=== PATIENT | female | born 1975 | race Caucasian/White ===

== ENCOUNTER 2018-02-21 07:22 | Day surgery (SDC) | payer MEDICAID, OTHER ==
[2018-02-21] MEDS ORDERED: Bupivacaine 25%/EPINEPHrine/PF 30 ML ONE (07:23)
[2018-02-21] MEDS ORDERED: fentaNYL 100 MCG/2 ML SDV ONE (07:31)
[2018-02-21] MEDS ORDERED: Propofol 200 MG/20 ML SDV ONE (07:31)
[2018-02-21] MEDS ORDERED: Lidocaine 2% 5 ML SDV ONE (07:31)
[2018-02-21] MEDS ORDERED: Midazolam 1 MG/ML 2 ML SDV ONE (07:32)
[2018-02-21] MEDS ORDERED: ceFAZolin 1 GM Vial ONE (07:41)
[2018-02-21] MEDS ORDERED: Sodium Chloride 0.9% 20 ML ONE (07:41)
--- NOTE | 2018-02-21 07:44 | PCM.PREANE ---
Preanesthetic Assessment - Anesthesia/Transfusion/Family Hx Anesthesia History: Prior Anesthesia Without Reaction Family History of Anesthesia Reaction: No Transfusion History: No Prior Transfusion(s) Intubation History: Unknown - Review of Systems General: No Symptoms Pulmonary: No Symptoms Cardiovascular: No Symptoms Gastrointestinal: No Symptoms Neurological: No Symptoms Other: Reports: None - Physical Assessment Height: 1.7 m Weight: 55.792 kg ASA Class: 2 Mental Status: Alert & Oriented x3 Airway Class: Mallampati = 2 Dentition: Reports: Normal Dentition Thyro-Mental Finger Breadths: 3 Mouth Opening Finger Breadths: 3 ROM/Head Extension: Limited/Partial (wears collar) Lungs: Clear to Auscultation, Normal Respiratory Effort Cardiovascular: Regular Rate, Regular Rhythm - Allergies Allergies/Adverse Reactions: Allergies Allergy/AdvReac Type Severity Reaction Status Date / Time No Known Allergies Allergy Verified 02/18/18 08:50 - Blood Blood Available: No - Anesthesia Plan Pre-Op Medication Ordered: None - Acknowledgements Anesthesia Type Planned: MAC Pt an Appropriate Candidate for the Planned Anesthesia: Yes Alternatives and Risks of Anesthesia Discussed w Pt/Guardian: Yes Pt/Guardian Understands and Agrees with Anesthesia Plan: Yes PreAnesthesia Questionnaire HEENT History: Reports: Other (See Below) Other HEENT History: wears glasses Cardiovascular History: Reports: Blood Clots/VTE/DVT Other Cardiovascular History: blood clots to leg following C/Section 15 yrs ago Gastrointestinal History: Reports: GERD Genitourinary History: Reports: Renal [employer]AD History: Reports: Musculoskeletal History: Reports: Arthritis, Back Pain, Chronic, Fracture, Fibromyalgia, Neck Pain, Chronic Other Musculoskeletal History: hx fx collarbone Psychiatric History: Reports: Anxiety Endocrine/Metabolic History: Reports: None Hematologic History: Reports: None Immunologic History: Reports: None Oncologic (Cancer) History: Reports: None Dermatologic History: Reports: None - Past Surgical History Head Surgeries/Procedures: Reports: None HEENT Surgical History: Reports: Tonsillectomy, Other (See Below) Other HEENT Surgeries/Procedures: throat surgery - removal of vocal cord polyp Female Surgical History: Reports: Section, Hysterectomy Neurological Surgical History: Reports: C-Spine (ACDF), Lumbar Spine Other Neurological Surgeries/Procedures: back and neck surgery Musculoskeletal Surgical History: Reports: Shoulder Surgery, Other (See Below) Other Musculoskeletal Surgeries/Procedures:: shoulder surgery, back surgery and neck surgery - SUBSTANCE USE Smoking Status *Q: Current Every Day Smoker Tobacco Use Within Last Twelve Months: Cigarettes Second Hand Smoke Exposure: Yes Days Per Week of Alcohol Use: 0 Recreational Drug Use History: No - HOME MEDS Home Medications: Home Meds Omeprazole Magnesium [Prilosec Otc] 20 mg PO ASDIRECTED 02/06/16 [History] Cyclobenzaprine HCl 5 - 10 mg PO ASDIRECTED 02/18/18 [History] Diazepam [Valium] 10 mg PO BEDTIME 02/18/18 [History] Diclofenac Sodium [Voltaren] 1 applic TOP ASDIRECTED PRN 02/18/18 [History] Gebauers [place] & Stretch 1 spray TOP ASDIRECTED PRN 02/18/18 [History] Hydrocodone/Acetaminophen [Hydrocodon-Acetaminophen 5-325] 1 tab PO ASDIRECTED PRN 02/18/18 [History] Ketamine Cream 1 applic TOP ASDIRECTED PRN 02/18/18 [History] - CURRENT (IN HOUSE) MEDS Current Meds: Current Medications Hydrocodone Bitart/Acetaminophen ([place] 325-5 Mg) 1 tab PO Q4H PRN PRN Reason: Pain Bupivacaine HCl/Epinephrine Bitart (Marcaine 0.25%/Epinephrine 1:200,000) 10 ml INJECT ONETIME ONE Stop: 02/21/18 08:01 Cefazolin Sodium/Dextrose 2 gm (/ Premix) 50 mls @ 100 mls/hr IV ONETIME ONE Stop: 02/21/18 08:29 Lactated Ringer's (Ringers, Lactated) 1,000 mls @ 125 mls/hr IV ASDIRECTED MARISELA Discontinued Medications Fentanyl (Sublimaze) Confirm Administered Dose 100 mcg .ROUTE .STK-MED ONE Stop: 02/21/18 07:32 Bupivacaine HCl/Epinephrine Bitart (Sensorc Mpf 0.25%-Epi 1:103059) Confirm Administered Dose 30 mls @ as directed .ROUTE .STK-MED ONE Stop: 02/21/18 07:24 Lidocaine (Xylocaine-Mpf 2%) Confirm Administered Dose 5 ml .ROUTE .STK-MED ONE Stop: 02/21/18 07:32 Midazolam HCl (Versed 1 Mg/Ml) Confirm Administered Dose 2 mg .ROUTE .STK-MED ONE Stop: 02/21/18 07:33 Propofol (Diprivan 20 Ml) Confirm Administered Dose 200 mg .ROUTE .[facility] ONE Stop: 02/21/18 07:32
[2018-02-21] MEDS ORDERED: ceFAZolin 2 GM in Premix Bag 1 BAG IV ONE (08:00)
[2018-02-21] MEDS ORDERED: Acetaminophen/HYDROcodone 325-5 MG Tab PO PRN (08:00)
[2018-02-21] MEDS ORDERED: Lactated Ringers 1,000 ML IV SCH (08:00)
[2018-02-21] MEDS ORDERED: Bupivacaine 0.25%/EPINEPHrine 1:200,000 10 ML SDV INJECT ONE (08:00)
--- NOTE | 2018-02-21 09:11 | PCM.OPNOTE ---
- General Post-Op/Procedure Note Date of Surgery/Procedure: 02/21/18 Operative Procedure(s): right carpal tunnel release Pre Op Diagnosis: right carpal tunnel syndrome Post-Op Diagnosis: Same Anesthesia Technique: Local Primary Surgeon: Alta Israel Complications: None Condition: Good Free Text/Narrative:: the patient took her home medications today and is sleepy this am. This is her usual after medications per her family. We discussed using local only to get this accomplished for her without additional compromise or question of medications. We did discuss this with her in clinic and decided today to avoid ANY additional medications aside from the local injection. The family states this is her norm and they will be watching her closely today and helping with any needs. She will not receive any additional medications from us and will use her home medications and OTC antiinflammatories if needed. She will continue her pain regimen per her primary and pain physicians. This care was clearly communicated to her, the family, the nursing staff, anesthesia and the OR care team.
[2018-02-21 11:57] VITALS: BP 110/65
--- NOTE | 2018-02-25 18:21 | OR ---
SURGEON: ROYA LUCAS MD DATE OF PROCEDURE: 02/21/2018 PREOPERATIVE DIAGNOSIS: Right carpal tunnel syndrome. POSTOPERATIVE DIAGNOSIS: Right carpal tunnel syndrome. PROCEDURE: Right carpal tunnel release. ANESTHESIA: Local only. INDICATIONS: Ms. Mills is a 42-year-old female seen today in evaluation for carpal tunnel release. Significant discussion was had with her and about her other pain complaints in the office. Risks and benefits were discussed with her thoroughly at the time and informed consent was obtained at that time. The patient does present today after taking some home medications and is somewhat sleepy. This is usual per her family after she takes these medications. We discussed with the family and with the patient that we will use local only today to accomplish the release without additional compromise or question of medication interactions. We did discuss this possibility with her in clinic and again today made a decision to avoid any additional IV or p.o. medications aside from the local injection. All questions answered at the preoperative visit. Informed consent was obtained at that time. We will proceed under local only today. This care was clearly communicated to her family, nursing staff, Anesthesia and OR care team. PROCEDURE IN DETAIL: After informed consent was confirmed and placed on the chart, the patient was brought to the operating theater in the supine position. After adequate local anesthesia was obtained, the area was prepped and draped and a time-out was completed to confirm side and site. Tourniquet was not used in this case given the local anesthesia. Once adequately prepped and draped and blocked appropriately, the area was incised using a 15 blade through the skin and subcutaneous tissues directly over the transverse carpal ligament. The patient was quite comfortable. Dissection was carried until breach of the ligament and then direct visualization distally and proximally allowed complete release of the ligament using a Littler scissor. Once adequately released, the area was copiously irrigated and closed using a 5-0 nylon stitch in a horizontal mattress fashion. The patient tolerated this well. The wound was dressed with Xeroform fluffs and a Kerlix gauze dressing. All counts and needles were correct at the end of the case. FOLLOWUP INSTRUCTIONS: The patient will be discharged home on her home medications only. No additional medication given and she will follow up with us in 2 weeks sooner if any problems, questions, or concerns. The family was given strict instructions on close observation of the patient today and helping with any additional needs. We recommend no additional medications from us and using [id number] anti- inflammatories as needed for pain. She will continue her pain regimen for her primary and pain position, however, recommend close observation today given her sleepy status this morning. All questions answered and verbal consent and acknowledgement of this obtained from her family and the patient herself. She was able to walk out of her own accord. HEGGTHE / MODL /[id number] MTDJanine
== END 2018-02-21 09:45 | disposition home or self-care (01) ==
LOC: MW.SDS 07:22
PROVIDERS: ATTEND Plastic Surgery
DX: G56.03 Carpal tunnel syndrome, bilateral upper limbs (principal); F17.200 Nicotine dependence, unspecified, uncomplicated; Z79.899 Other long term (current) drug therapy
CPT/HCPCS: 64721; J0690; J7120; J2250; J2704; J3010

== ENCOUNTER 2018-03-07 07:54 | Day surgery (SDC) | payer MEDICAID, OTHER ==
[~2018-03-07 07:54] MED LIST: Bupivacaine 25%/EPINEPHrine/PF 30 ML ONE
[2018-03-07] MEDS ORDERED: Lactated Ringers 1,000 ML IV SCH (08:00)
[2018-03-07] MEDS ORDERED: Bupivacaine 0.25%/EPINEPHrine 1:200,000 10 ML SDV INJECT ONE (08:00)
[2018-03-07] MEDS ORDERED: ceFAZolin 2 GM in Premix Bag 1 BAG IV ONE (08:00)
--- NOTE | 2018-03-07 08:12 | PCM.PREANE ---
Preanesthetic Assessment - Anesthesia/Transfusion/Family Hx Anesthesia History: Prior Anesthesia Without Reaction Family History of Anesthesia Reaction: No Transfusion History: No Prior Transfusion(s) Intubation History: Unknown - Review of Systems General: No Symptoms Pulmonary: No Symptoms Cardiovascular: No Symptoms Gastrointestinal: No Symptoms Other: Reports: Depression, Anxiety - Physical Assessment NPO Status Date: 03/06/18 Height: 1.7 m Weight: 55.792 kg ASA Class: 3 Mental Status: Alert & Oriented x3 Airway Class: Mallampati = 1 Dentition: Reports: Normal Dentition ROM/Head Extension: Full Lungs: Clear to Auscultation, Normal Respiratory Effort Cardiovascular: Regular Rate, Regular Rhythm - Allergies Allergies/Adverse Reactions: Allergies Allergy/AdvReac Type Severity Reaction Status Date / Time No Known Allergies Allergy Verified 02/18/18 08:50 - Anesthesia Plan Pre-Op Medication Ordered: Anxiolytic - Acknowledgements Anesthesia Type Planned: MAC Pt an Appropriate Candidate for the Planned Anesthesia: Yes Alternatives and Risks of Anesthesia Discussed w Pt/Guardian: Yes Pt/Guardian Understands and Agrees with Anesthesia Plan: Yes Additional Comments: Here for second side CTR, anesthesia/analgesia plan agreed to by surgeon and patient is to involve a small dose of anxiolysis pre-operatively, No sedation ( no diprivan, no narcotic, and no additional benzodiazepine) during of after the case. Arrived highly self-medicated prior to last CTR surgery. PMH: chronic pain PreAnesthesia Questionnaire HEENT History: Reports: Other (See Below) Other HEENT History: wears glasses Cardiovascular History: Reports: Blood Clots/VTE/DVT Other Cardiovascular History: hx DVT ro leg after c/section 15 yrs ago Gastrointestinal History: Reports: GERD Genitourinary History: Reports: None [employer] SERV[employer] INST[employer]ER History: Reports: Musculoskeletal History: Reports: Back Pain, Chronic Other Musculoskeletal History: hx fx collarbone Neurological History: Reports: None Psychiatric History: Reports: Anxiety Endocrine/Metabolic History: Reports: None Hematologic History: Reports: None Immunologic History: Reports: None Oncologic (Cancer) History: Reports: None Dermatologic History: Reports: None - Past Surgical History Musculoskeletal Surgical History: Reports: Other (See Below) - SUBSTANCE USE Smoking Status *Q: Current Every Day Smoker Tobacco Use Within Last Twelve Months: Cigarettes Second Hand Smoke Exposure: Yes Days Per Week of Alcohol Use: 0 Recreational Drug Use History: No - HOME MEDS Home Medications: Home Meds Omeprazole Magnesium [Prilosec Otc] 20 mg PO ASDIRECTED 02/06/16 [History] Cyclobenzaprine HCl 5 - 10 mg PO ASDIRECTED 02/18/18 [History] Diazepam [Valium] 10 mg PO BEDTIME 02/18/18 [History] Diclofenac Sodium [Voltaren] 1 applic TOP ASDIRECTED PRN 02/18/18 [History] Gebauers [place] & Stretch 1 spray TOP ASDIRECTED PRN 02/18/18 [History] Hydrocodone/Acetaminophen [Hydrocodon-Acetaminophen 5-325] 1 tab PO ASDIRECTED PRN 02/18/18 [History] Ketamine Cream 1 applic TOP ASDIRECTED PRN 02/18/18 [History] - CURRENT (IN HOUSE) MEDS Current Meds: Current Medications Cefazolin Sodium/Dextrose 2 gm (/ Premix) 50 mls @ 100 mls/hr IV ONETIME ONE Stop: 03/07/18 08:29 Lactated Ringer's (Ringers, Lactated) 1,000 mls @ 125 mls/hr IV ASDIRECTED MARISELA Discontinued Medications Bupivacaine HCl/Epinephrine Bitart ([place] 0.25%/Epinephrine 1:200,000) 10 ml INJECT ONETIME ONE Stop: 03/07/18 08:01 Bupivacaine HCl/Epinephrine Bitart (Sensorc Mpf 0.25%-Epi 1:192634) Confirm Administered Dose 30 mls @ as directed .ROUTE .STK-MED ONE Stop: 03/07/18 07:31
[2018-03-07] MEDS ORDERED: Midazolam 1 MG/ML 2 ML SDV ONE (08:18)
[2018-03-07] MEDS ORDERED: fentaNYL 100 MCG/2 ML SDV ONE (08:18)
[2018-03-07] MEDS ORDERED: Propofol 200 MG/20 ML SDV ONE (08:18)
[2018-03-07] MEDS ORDERED: ceFAZolin/Dextrose,Iso-Osmotic 2 GM/50 ML Duplex Bag IV ONE (08:25)
--- NOTE | 2018-03-07 09:09 | PCM.OPNOTE ---
- General Post-Op/Procedure Note Date of Surgery/Procedure: 03/07/18 Operative Procedure(s): left carpal tunnel release Pre Op Diagnosis: let carpal tunnel Post-Op Diagnosis: Same Anesthesia Technique: Local, Regional Block Primary Surgeon: Alta Israel Complications: None Condition: Good
--- NOTE | 2018-03-07 09:21 | PCM48HPAN ---
Post Anesthesia Note - EVALUATION WITHIN 48HRS OF ANESTHETIC Vital Signs in Normal Range: Yes Patient Participated in Evaluation: Yes Respiratory Function Stable: Yes Airway Patent: Yes Cardiovascular Function Stable: Yes Hydration Status Stable: Yes Pain Control Satisfactory: Yes Nausea and Vomiting Control Satisfactory: Yes Mental Status Recovered: Yes Resp Rate: 16 - COMMENTS/OBSERVATIONS Free Text/Narrative:: no anesthesia problems, patient skipped recovery room phase of postoperative care
--- NOTE | 2018-03-07 10:51 | OR ---
SURGEON: ROYA LUCAS MD DATE OF PROCEDURE: 03/07/2018 PREOPERATIVE DIAGNOSIS: Left carpal tunnel syndrome. POSTOPERATIVE DIAGNOSIS: Left carpal tunnel syndrome. PROCEDURE PERFORMED: Left carpal tunnel release. ANESTHESIA: Local. INDICATIONS: Ms. Mills is a 42-year-old female, who has previously had a right carpal tunnel release several weeks ago. She has done very well with this and had just left. Given pain contract and numerous other medications, we discussed doing this under straight local anesthesia. She would like to do this and is in agreement to proceed. Risks were including, but not limited to, bleeding, infection, damage to underlying or overlying structures, possible need for future interventions, possible scarring. PROCEDURE IN DETAIL: After informed consent was obtained and placed on the chart, the patient was brought to the operating theater and laid in the supine position. After adequate prepping and draping, local anesthesia was infiltrated into the area and allowed to sit for 4 minutes. Once adequately set, attention was then paid to dissection of the transverse carpal ligament. A #15 blade was used to dissect through the skin and subcutaneous tissues after prepping and draping in a normal fashion and a time-out had been completed to confirm side and site. Under direct visualization, the ligament was breached and dissection was carried distally and proximally using a Littler scissor. Once adequately released, the area was copiously irrigated. A 5-0 nylon stitch was used to close the wound in a horizontal mattress fashion. The patient tolerated this well. The wound was dressed with Xeroform, fluffs, and Kerlix gauze dressing and a 2-inch Juan Alberto wrap. FOLLOWUP INSTRUCTIONS: The patient will see us in 10 to 14 days, sooner if she has any problems, questions, or concerns. She will use her home medications for pain control. No additional medications given from us today. HEGGTHE / ZAKL /[id number]
[2018-03-07 15:18] VITALS: BP 140/60
== END 2018-03-07 09:40 | disposition home or self-care (01) ==
LOC: MW.SDS 07:54
PROVIDERS: ATTEND Plastic Surgery
DX: G56.02 Carpal tunnel syndrome, left upper limb (principal); F17.210 Nicotine dependence, cigarettes, uncomplicated; K21.9 Gastro-esophageal reflux disease without esophagitis; F41.9 Anxiety disorder, unspecified; F32.9 Major depressive disorder, single episode, unspecified; Z79.899 Other long term (current) drug therapy
CPT/HCPCS: 64721; J0690; J7120; J2250; J2704; J3010

== ENCOUNTER 2019-10-06 07:27 | Observation (INO) | payer MEDICAID ==
[2019-10-06] MEDS ORDERED: Sodium Chloride 0.9% 10 ML Syringe FLUSH PRN (07:58)
[2019-10-06] MEDS ORDERED: Sodium Chloride 0.9% 2.5 ML Syringe FLUSH PRN (07:58)
[2019-10-06] MEDS ORDERED: LORazepam 2 MG/ML SDV IVPUSH ONE (08:00)
--- NOTE | 2019-10-06 08:06 | EDM.PDOC ---
ED HPI GENERAL MEDICAL PROBLEM - General Chief Complaint: Respiratory Problem Stated Complaint: SOB Time Seen by Provider: 10/06/19 08:01 Source of Information: Reports: Patient, Family History Limitations: Reports: No Limitations - History of Present Illness INITIAL COMMENTS - FREE TEXT/NARRATIVE: Patient is a 43-year-old female is complaining having worsening shortness of breath with dyspnea on exertion that started 4 days ago and got worse this morning. Patient denies having any cough or any fever or chills. She has not been nauseous or vomiting. Since this morning tearful and is very anxious over her current symptoms. She has not had these symptoms before. Patient is a cigarette smoker. Patient has not had any recent travel not had any recent surgery or been injured where she has been bedridden. Patient does have history of antiphospholipid disease and has been told that she is at risk due to this or having blood clots. Patient has been on Coumadin prophylactically for blood clots in the past but is not currently taking any Coumadin. Patient also has a history of lupus. Scribes her chest pain is sharp and is more right- sided and goes to her back. She states this is 10 out of 10 in intensity. She denies any swelling to her ankles or any bloody or tarry stools. Onset Date: 10/03/19 Duration: Constant Location: Reports: Chest Quality: Reports: Sharp, Stabbing Severity: Severe Improves with: Reports: None Worsens with: Reports: Breathing, Movement Associated Symptoms: Reports: Chest Pain, Diaphoresis, Shortness of Breath. Denies: cough w sputum, Fever/Chills, Nausea/Vomiting right chest Pain Score (Numeric/FACES): 10 - Related Data Allergies Allergy/AdvReac Type Severity Reaction Status Date / Time metoclopramide [From Reglan] Allergy Rash Verified 10/06/19 07:51 Home Meds: Home Meds Acetaminophen/HYDROcodone [[place] 325-5 MG] 1 tab PO Q6H PRN 10/06/19 [History] Bumetanide [Bumex] 10/06/19 [History] Estrogens, Conjugated [Premarin] 10/06/19 [History] Furosemide [Lasix] 40 mg PO BID 10/06/19 [History] Ketamine [Ketalar] 10/06/19 [History] Sertraline [Zoloft] 50 mg PO BID 10/06/19 [History] cloNIDine [Catapres-TTS 1] 0.1 mg PO BID 10/06/19 [History] Past Medical History HEENT History: Reports: Other (See Below) Other HEENT History: wears glasses Cardiovascular History: Reports: Blood Clots/VTE/DVT, Hypertension Other Cardiovascular History: hx DVT ro leg after c/section 15 yrs ago Gastrointestinal History: Reports: GERD Genitourinary History: Reports: None 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: Musculoskeletal History: Reports: Arthritis, Back Pain, Chronic, Fracture, Fibromyalgia, Neck Pain, Chronic Other Musculoskeletal History: hx fx collarbone Neurological History: Reports: None Psychiatric History: Reports: Anxiety Endocrine/Metabolic History: Reports: None Hematologic History: Reports: None Immunologic History: Reports: SLE Oncologic (Cancer) History: Reports: None Dermatologic History: Reports: None - Past Surgical History HEENT Surgical History: Reports: Tonsillectomy, Other (See Below) Musculoskeletal Surgical History: Reports: Carpal Tunnel, Shoulder Surgery, Other (See Below) Other Musculoskeletal Surgeries/Procedures:: shoulder surgery, back surgery and neck surgery Social & Family History - Family History Family Medical History: Noncontributory ED ROS GENERAL - Review of Systems Review Of Systems: See Below Constitutional: Reports: Diaphoresis HEENT: Reports: No Symptoms Respiratory: Reports: Shortness of Breath, Pleuritic Chest Pain. Denies: Cough , Sputum, Hemoptysis Cardiovascular: Reports: Chest Pain, Dyspnea on Exertion GI/Abdominal: Reports: No Symptoms : Reports: No Symptoms Musculoskeletal: Reports: No Symptoms Skin: Reports: Diaphoresis Neurological: Reports: No Symptoms Psychiatric: Reports: Anxiety Hematologic/Lymphatic: Reports: No Symptoms ED EXAM, GENERAL - Physical Exam Exam: See Below Exam Limited By: No Limitations General Appearance: Anxious, Mild Distress Head: Atraumatic Neck: Normal Inspection Respiratory/Chest: Normal Breath Sounds, No Accessory Muscle Use. No: Crackles , Rales, Rhonchi, Wheezing, Retractions Cardiovascular: Normal Peripheral Pulses, Regular Rate, Rhythm, No Edema, No JVD , No Murmur GI/Abdominal: Normal Bowel Sounds Back Exam: Normal Inspection Extremities: No Pedal Edema Psychiatric: Anxious, Tearful Skin Exam: Diaphoretic Lymphatic: No Adenopathy EKG INTERPRETATION EKG Date: 10/06/19 Rhythm: NSR P-Wave: Present (Patient is in sinus tachycardia without any ST or T wave changes. Her heart rate is 112.) QRS: Normal ST-T: Normal QT: Normal Course - Vital Signs Text/Narrative:: CTA scan shows no pulmonary embolus. Patient does have diffuse interlobar septal thickening. She has small patchy infiltrates bilaterally with moderate to large bilateral pleural effusions. Patient's exertional pulse ox went down to 89% and she is very dyspneic with slightly walking around the department. I am starting her on Levaquin and I have discussed the patient with hospitalist who will come admit her. BNP is pending. He is aware she will be admitted to the hospital at this time. Last Recorded V/S: Last Vital Signs Temp 36.4 C 10/06/19 07:30 Pulse 127 H 10/06/19 09:31 Resp 22 H 10/06/19 09:31 BP 192/88 H 10/06/19 07:30 Pulse Ox 89 L 10/06/19 09:31 - Orders/Labs/Meds Orders: Active Orders 24 hr Category Date Time Status Cardiac Monitoring [RC] . DIRECTED Care 10/06/19 07:58 Active EKG 12 Lead [EKG Documentation Completion] [RC] STAT Care 10/06/19 07:42 Active Pulse Oximetry [RC] ASDIRECTED Care 10/06/19 07:58 Active B-TYPE NATRIURETIC PEPTIDE,BNP [CHEM] Stat Lab 10/06/19 08:01 Received Sodium Chloride 0.9% [Saline Flush] Med 10/06/19 07:58 Active 10 ml FLUSH ASDIRECTED PRN Sodium Chloride 0.9% [Saline Flush] Med 10/06/19 07:58 Active 2.5 ml FLUSH ASDIRECTED PRN DME for Inpatients [OM.PC] Stat Oth 10/06/19 09:21 Ordered Saline Lock Insert [OM.PC] Stat Oth 10/06/19 07:58 Ordered Medication Orders Sodium Chloride (Saline Flush) 10 ml FLUSH ASDIRECTED PRN PRN Reason: Keep Vein Open Sodium Chloride (Saline Flush) 2.5 ml FLUSH ASDIRECTED PRN PRN Reason: Keep Vein Open Labs: Laboratory Tests 10/06/19 10/06/19 10/06/19 Range/Units 07:40 07:40 07:40 WBC 8.16 (4.0-11.0) K/uL RBC 4.51 (4.30-5.90) M/uL Hgb 12.1 (12.0-16.0) g/dL Hct 37.0 (36.0-46.0) % MCV 82.0 (80.0-98.0) fL MCH 26.8 L (27.0-32.0) pg MCHC 32.7 (31.0-37.0) g/dL RDW Std Deviation 44.1 (28.0-62.0) fl RDW Coeff of Dayanna 15 (11.0-15.0) % Plt Count 285 (150-400) K/uL MPV 10.60 (7.40-12.00) fL Neut % (Auto) 49.9 (48.0-80.0) % Lymph % (Auto) 35.3 (16.0-40.0) % [place] % (Auto) 10.3 (0.0-15.0) % Eos % (Auto) 4.4 (0.0-7.0) % Baso % (Auto) 0.1 (0.0-1.5) % Neut # (Auto) 4.1 (1.4-5.7) K/uL Lymph # (Auto) 2.9 H (0.6-2.4) K/uL [place] # (Auto) 0.8 (0.0-0.8) K/uL Eos # (Auto) 0.4 (0.0-0.7) K/uL Baso # (Auto) 0.0 (0.0-0.1) K/uL Nucleated RBC % 0.0 /100WBC Nucleated RBCs # 0 K/uL INR 1.01 Sodium 144 (136-145) mmol/L Potassium 3.4 L (3.5-5.1) mmol/L Chloride 108 H (98-107) mmol/L Carbon Dioxide 25.5 (21.0-32.0) mmol/L BUN 16 (7.0-18.0) mg/dL Creatinine 0.7 (0.6-1.0) mg/dL Est Cr Clr Drug Dosing 95.47 mL/min Estimated GFR (MDRD) > 60.0 ml/min Glucose 94 (74-106) mg/dL Calcium 8.8 (8.5-10.1) mg/dL Total Bilirubin 0.5 (0.2-1.0) mg/dL AST 62 H (15-37) IU/L ALT 70 H (14-63) IU/L Alkaline Phosphatase 150 H (46-116) U/L Troponin I < 0.050 (0.000-0.056) ng/mL Total Protein 6.5 (6.4-8.2) g/dL Albumin 3.5 (3.4-5.0) g/dL Globulin 3.0 (2.6-4.0) g/dL Albumin/Globulin Ratio 1.2 (0.9-1.6) Lipase 104 (73-393) U/L Meds: Medications Generic Name Dose Route Start Last Admin Trade Name Freq PRN Reason Stop Dose Admin Sodium Chloride 10 ml 10/06/19 07:58 Saline Flush FLUSH ASDIRECTED PRN Keep Vein Open Sodium Chloride 2.5 ml 10/06/19 07:58 Saline Flush FLUSH ASDIRECTED PRN Keep Vein Open Discontinued Medications Generic Name Dose Route Start Last Admin Trade Name Freq PRN Reason Stop Dose Admin Iopamidol 50 ml 10/06/19 08:47 Isovue Multipack-370 (76%) IVPUSH 10/06/19 08:48 ONETIME ONE Lorazepam 1 mg 10/06/19 08:00 10/06/19 08:22 Ativan IVPUSH 10/06/19 08:01 1 mg ONETIME ONE Administration Departure - Departure Time of Disposition: 09:50 Disposition: Admitted As Inpatient 65 Clinical Impression: Dyspnea on exertion, Hypoxia, Bilateral pleural effusion, Pneumonia - Discharge Information Referrals: PCP,None [Primary Care Provider] - Forms: ED Department Discharge Sepsis Event Note - Evaluation Sepsis Screening Result: No Definite Risk - Focused Exam Vital Signs: Vital Signs Temp Pulse Resp BP Pulse Ox Pulse Ox 10/06/19 09:31 127 H 22 H 89 L 10/06/19 08:30 92 L 10/06/19 07:30 36.4 C 116 H 20 192/88 H 94 L Date Exam was Performed: 10/06/19 Time Exam was Performed: 09:50 - My Orders Last 24 Hours: My Active Orders 10/06/19 07:42 EKG 12 Lead [EKG Documentation Completion] [RC] STAT 10/06/19 07:58 Cardiac Monitoring [RC] . DIRECTED Pulse Oximetry [RC] ASDIRECTED Sodium Chloride 0.9% [Saline Flush] 10 ml FLUSH ASDIRECTED PRN Sodium Chloride 0.9% [Saline Flush] 2.5 ml FLUSH ASDIRECTED PRN Saline Lock Insert [OM.PC] Stat 10/06/19 08:01 B-TYPE NATRIURETIC PEPTIDE,BNP [CHEM] Stat 10/06/19 09:21 DME for Inpatients [OM.PC] Stat - Assessment/Plan Last 24 Hours: My Active Orders 10/06/19 07:42 EKG 12 Lead [EKG Documentation Completion] [RC] STAT 10/06/19 07:58 Cardiac Monitoring [RC] . DIRECTED Pulse Oximetry [RC] ASDIRECTED Sodium Chloride 0.9% [Saline Flush] 10 ml FLUSH ASDIRECTED PRN Sodium Chloride 0.9% [Saline Flush] 2.5 ml FLUSH ASDIRECTED PRN Saline Lock Insert [OM.PC] Stat 10/06/19 08:01 B-TYPE NATRIURETIC PEPTIDE,BNP [CHEM] Stat 10/06/19 09:21 DME for Inpatients [OM.PC] Stat
[2019-10-06 08:19] LABS: BLOOD UREA NITROGEN,BUN 16 mg/dL (7.0-18.0); CARBON DIOXIDE,CO2 25.5 mmol/L (21.0-32.0); CHLORIDE,CL 108 mmol/L (98-107); GLUCOSE RANDOM 94 mg/dL (74-106); LIPASE 104 U/L (73-393); POTASSIUM,K 3.4 mmol/L (3.5-5.1); SODIUM,NA 144 mmol/L (136-145)
[2019-10-06] MEDS ORDERED: Iopamidol 755 MG/ML 200 ML Multipack Bottle IVPUSH ONE (08:47)
--- NOTE | 2019-10-06 09:10 | CT ---
INDICATION: Shortness of breath. TECHNIQUE: CT chest PE was acquired with 50 cc Isovue 370 IV contrast. COMPARISON: None. FINDINGS: Heart and vasculature: Contrast opacification of the pulmonary arterial tree is adequate. No sign of pulmonary embolism. Heart size is normal. Thoracic aorta and pulmonary artery are normal in caliber. Lungs and pleural: There is diffuse interlobular septal thickening. Small patchy infiltrates are in both upper lobes . There are moderate to large bilateral pleural effusions with adjacent passive atelectasis in the lower lobes. Lymph nodes/mediastinum: No mediastinal, hilar, or axillary adenopathy. Thyroid gland is normal. Chest wall: No masses. Upper abdomen: Normal. Bones: Unremarkable for age. IMPRESSION: 1. No pulmonary embolism. 2. Although the heart size is normal. There is evidence of CHF or fluid overload with diffuse interlobular septal thickening, small patchy infiltrates in the upper lobes which could represent pulmonary edema, and moderate to large bilateral pleural effusions. Alternatively, the upper lobe infiltrates could represent pneumonia. Please note that all CT scans at this facility use dose modulation, iterative reconstruction, and/or weight-based dosing when appropriate to reduce radiation dose to as low as reasonably achievable. Dictated by Dylan Gale MD @ Oct 06 2019 9:03AM Signed by Dr. Dylan Gale @ Oct 06 2019 9:08AM
[2019-10-06] MEDS ORDERED: Albuterol/Ipratropium 3.0-0.5 MG/3 ML Neb Soln NEB ONE (11:05)
[2019-10-06] MEDS ORDERED: methylPREDNISolone Sodium Succinate 125 MG/2 ML SDV IVPUSH ONE (11:08)
[2019-10-06] MEDS ORDERED: Furosemide 40 MG/4 ML VIAL IVPUSH ONE (11:10)
[2019-10-06] MEDS ORDERED: Levofloxacin/Dextrose 5%-Water 500 MG in Premix Bag 1 BAG IV SCH (11:15)
[2019-10-06] MEDS ORDERED: Nicotine 21 MG/24 Hr Patch TRDERM SCH (11:15)
--- NOTE | 2019-10-06 11:15 | PCM.HP.2 ---
H&P History of Present Illness - General Date of Service: 10/06/19 Admit Problem/Dx: Admission Diagnosis/Problem Admission Diagnosis/Problem Pneumonia Source of Information: Patient History Limitations: Reports: No Limitations - History of Present Illness Initial Comments - Free Text/Narative: Patient is a 43-year-old female with a significant past medical history of tobacco abuse x16 years, antiphospholipid syndrome; no longer taking her Coumadin, and failed back surgery with chronic pain; presenting today after 4 days of worsening exertional dyspnea and worsening of her nonproductive cough. Patient throughout this time denies any fevers, chills, body aches, diarrhea, constipation. States she has been taking her usual dose of Lasix 40 mg twice daily or Bumex on alternating days. When asked about her history of Coumadin states she sees a provider in [facility] and cannot recall why Coumadin was never restarted however was never told to stop it also. ER Course: With history of antiphospholipid syndrome /previous DVTs; CT Hedy of chest performed showing no PE however moderate to large pleural effusions bilaterally appreciated with upper lobe opacities concerning for pneumonia. Patient also was having dyspnea on exertion with superimposed anxiety; 1 dose of Ativan given and patient was started on supplemental oxygen. Initial troponin negative; EKG unremarkable. right chest Pain Score (Numeric/FACES): 10 - Related Data Allergies/Adverse Reactions: Allergies Allergy/AdvReac Type Severity Reaction Status Date / Time metoclopramide [From Reglan] Allergy Rash Verified 10/06/19 11:52 Home Medications: Home Meds Acetaminophen/HYDROcodone [[place] 325-5 MG] 1 tab PO Q6H PRN 10/06/19 [History] Bumetanide [Bumex] 10/06/19 [History] Estrogens, Conjugated [Premarin] 10/06/19 [History] Furosemide [Lasix] 40 mg PO BID 10/06/19 [History] Ketamine [Ketalar] 10/06/19 [History] Sertraline [Zoloft] 50 mg PO DAILY 10/06/19 [History] cloNIDine [Catapres-TTS 1] 0.1 mg PO BID 10/06/19 [History] Past Medical History HEENT History: Reports: Other (See Below) Other HEENT History: wears glasses Cardiovascular History: Reports: Blood Clots/VTE/DVT, Hypertension Other Cardiovascular History: hx DVT ro leg after c/section 15 yrs ago Gastrointestinal History: Reports: GERD Genitourinary History: Reports: None 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: Musculoskeletal History: Reports: Arthritis, Back Pain, Chronic, Fracture, Fibromyalgia, Neck Pain, Chronic Other Musculoskeletal History: hx fx collarbone Neurological History: Reports: None Psychiatric History: Reports: Anxiety Endocrine/Metabolic History: Reports: None Hematologic History: Reports: None Immunologic History: Reports: SLE Oncologic (Cancer) History: Reports: None Dermatologic History: Reports: None - Past Surgical History HEENT Surgical History: Reports: Tonsillectomy, Other (See Below) Musculoskeletal Surgical History: Reports: Carpal Tunnel, Shoulder Surgery, Other (See Below) Other Musculoskeletal Surgeries/Procedures:: shoulder surgery, back surgery and neck surgery Social & Family History - Family History Family Medical History: Noncontributory - Tobacco Use Smoking Status *Q: Current Every Day Smoker Years of Tobacco use: 15 Packs/Tins Daily: 1 - Recreational Drug Use Recreational Drug Use: No H&P Review of Systems - Review of Systems: Review Of Systems: See Below General: Reports: Fatigue. Denies: Fever, Chills HEENT: Reports: No Symptoms Pulmonary: Reports: Shortness of Breath, Pleuritic Chest Pain, Cough. Denies: Sputum Cardiovascular: Reports: Dyspnea on Exertion, Orthopnea, Edema. Denies: Chest Pain, Palpitations Gastrointestinal: Denies: Abdominal Pain, Constipation, Diarrhea, Decreased Appetite, Nausea Genitourinary: Reports: No Symptoms Musculoskeletal: Reports: Back Pain (chronic) Skin: Reports: No Symptoms Psychiatric: Reports: Anxiety. Denies: Depression Neurological: Denies: Confusion, Dizziness, Headache Exam - Exam Exam: See Below - Vital Signs Vital Signs: Last Vital Signs Temp 97.6 F 10/06/19 07:30 Pulse 127 H 10/06/19 09:31 Resp 22 H 10/06/19 09:31 BP 192/88 H 10/06/19 07:30 Pulse Ox 89 L 10/06/19 09:31 Weight: 130 lb - Exam Quality Assessment: Supplemental Oxygen General: Alert, Oriented, Mild Distress HEENT: EOMI, Mucosa Moist & [place] Neck: Supple, Trachea Midline Lungs: Other (incrased respiratory effort w/ rhonchi and crackles apprecaited in supine and upright position/) Cardiovascular: Regular Rate, Regular Rhythm GI/Abdominal Exam: Soft, Non-Tender, No Distention Extremities: Normal Inspection, Normal Range of Motion, No Pedal Edema Skin: Warm, Dry Neuro Extensive - Mental Status: Alert, Oriented x3 Psychiatric: Alert - Patient Data Lab Results Last 24 hrs: Laboratory Results - last 24 hr 10/06/19 10/06/19 10/06/19 Range/Units 07:40 07:40 07:40 WBC 8.16 (4.0-11.0) K/uL RBC 4.51 (4.30-5.90) M/uL Hgb 12.1 (12.0-16.0) g/dL Hct 37.0 (36.0-46.0) % MCV 82.0 (80.0-98.0) fL MCH 26.8 L (27.0-32.0) pg MCHC 32.7 (31.0-37.0) g/dL RDW Std Deviation 44.1 (28.0-62.0) fl RDW Coeff of Dayanna 15 (11.0-15.0) % Plt Count 285 (150-400) K/uL MPV 10.60 (7.40-12.00) fL Neut % (Auto) 49.9 (48.0-80.0) % Lymph % (Auto) 35.3 (16.0-40.0) % [place] % (Auto) 10.3 (0.0-15.0) % Eos % (Auto) 4.4 (0.0-7.0) % Baso % (Auto) 0.1 (0.0-1.5) % Neut # (Auto) 4.1 (1.4-5.7) K/uL Lymph # (Auto) 2.9 H (0.6-2.4) K/uL [place] # (Auto) 0.8 (0.0-0.8) K/uL Eos # (Auto) 0.4 (0.0-0.7) K/uL Baso # (Auto) 0.0 (0.0-0.1) K/uL Nucleated RBC % 0.0 /100WBC Nucleated RBCs # 0 K/uL INR 1.01 Sodium 144 (136-145) mmol/L Potassium 3.4 L (3.5-5.1) mmol/L Chloride 108 H (98-107) mmol/L Carbon Dioxide 25.5 (21.0-32.0) mmol/L BUN 16 (7.0-18.0) mg/dL Creatinine 0.7 (0.6-1.0) mg/dL Est Cr Clr Drug Dosing 95.47 mL/min Estimated GFR (MDRD) > 60.0 ml/min Glucose 94 (74-106) mg/dL Calcium 8.8 (8.5-10.1) mg/dL Total Bilirubin 0.5 (0.2-1.0) mg/dL AST 62 H (15-37) IU/L ALT 70 H (14-63) IU/L Alkaline Phosphatase 150 H (46-116) U/L Troponin I < 0.050 (0.000-0.056) ng/mL B-Natriuretic Peptide (<100) PG/ML Total Protein 6.5 (6.4-8.2) g/dL Albumin 3.5 (3.4-5.0) g/dL Globulin 3.0 (2.6-4.0) g/dL Albumin/Globulin Ratio 1.2 (0.9-1.6) Lipase 104 (73-393) U/L 10/06/19 Range/Units 08:01 WBC (4.0-11.0) K/uL RBC (4.30-5.90) M/uL Hgb (12.0-16.0) g/dL Hct (36.0-46.0) % MCV (80.0-98.0) fL MCH (27.0-32.0) pg MCHC (31.0-37.0) g/dL RDW Std Deviation (28.0-62.0) fl RDW Coeff of Dayanna (11.0-15.0) % Plt Count (150-400) K/uL MPV (7.40-12.00) fL Neut % (Auto) (48.0-80.0) % Lymph % (Auto) (16.0-40.0) % [place] % (Auto) (0.0-15.0) % Eos % (Auto) (0.0-7.0) % Baso % (Auto) (0.0-1.5) % Neut # (Auto) (1.4-5.7) K/uL Lymph # (Auto) (0.6-2.4) K/uL [place] # (Auto) (0.0-0.8) K/uL Eos # (Auto) (0.0-0.7) K/uL Baso # (Auto) (0.0-0.1) K/uL Nucleated RBC % /100WBC Nucleated RBCs # K/uL INR Sodium (136-145) mmol/L Potassium (3.5-5.1) mmol/L Chloride (98-107) mmol/L Carbon Dioxide (21.0-32.0) mmol/L BUN (7.0-18.0) mg/dL Creatinine (0.6-1.0) mg/dL Est Cr Clr Drug Dosing mL/min Estimated GFR (MDRD) ml/min Glucose (74-106) mg/dL Calcium (8.5-10.1) mg/dL Total Bilirubin (0.2-1.0) mg/dL AST (15-37) IU/L ALT (14-63) IU/L Alkaline Phosphatase (46-116) U/L Troponin I (0.000-0.056) ng/mL B-Natriuretic Peptide 470 H (<100) PG/ML Total Protein (6.4-8.2) g/dL Albumin (3.4-5.0) g/dL Globulin (2.6-4.0) g/dL Albumin/Globulin Ratio (0.9-1.6) Lipase (73-393) U/L Result Diagrams: 10/06/19 07:40 10/06/19 07:40 Sepsis Event Note - Evaluation Sepsis Screening Result: No Definite Risk - Focused Exam Vital Signs: Vital Signs Temp Pulse Resp BP Pulse Ox Pulse Ox 10/06/19 09:31 127 H 22 H 89 L 10/06/19 08:30 92 L 10/06/19 07:30 97.6 F 116 H 20 192/88 H 94 L Date Exam was Performed: 10/06/19 Time Exam was Performed: 12:05 Problem List Initiated/Reviewed/Updated: Yes Orders Last 24hrs: Active Orders 24 hr Category Date Time Status Admission Status [Patient Status] [ADT] Stat ADT 10/06/19 10:17 Active Activity as Tolerated [RC] .Routine Care 10/06/19 11:04 Active Antiembolic Devices [RC] PER UNIT ROUTINE Care 10/06/19 11:05 Active Cardiac Monitoring [RC] . DIRECTED Care 10/06/19 07:58 Active Pulse Oximetry [RC] ASDIRECTED Care 10/06/19 07:58 Active RT Aerosol Therapy [RC] ASDIRECTED Care 10/06/19 11:05 Active CULTURE SPUTUM + SMEAR [RM] Stat Lab 10/06/19 11:10 Ordered Acetaminophen/HYDROcodone [[place] 325-5 MG] Med 10/06/19 11:10 Active 1 tab PO Q6H PRN Furosemide [Lasix] Med 10/07/19 09:00 Active 40 mg PO BID Levofloxacin/Dextrose 5%-Water [Levaquin in D5W 500 MG/ Med 10/06/19 11:15 Active 100 ML] 500 mg Premix Bag 1 bag IV Q24H Nicotine [Habitrol] Med 10/06/19 11:15 Active 21 mg TRDERM DAILY Sertraline [Zoloft] Med 10/06/19 21:00 Active 50 mg PO BID Sodium Chloride 0.9% [Saline Flush] Med 10/06/19 07:58 Active 10 ml FLUSH ASDIRECTED PRN Sodium Chloride 0.9% [Saline Flush] Med 10/06/19 07:58 Active 2.5 ml FLUSH ASDIRECTED PRN predniSONE Med 10/07/19 08:00 Active 40 mg PO WITHBREAKFAST DME for Inpatients [OM.PC] Stat Oth 10/06/19 09:21 Ordered SCD [Sequential Compression Device] [OM.PC] Routine Oth 10/06/19 11:05 Ordered Saline Lock Insert [OM.PC] Stat Oth 10/06/19 07:58 Ordered Code Status [Resuscitation Status] Routine Resus Stat 10/06/19 11:04 Ordered Medication Orders Hydrocodone Bitart/Acetaminophen ([place] 325-5 Mg) 1 tab PO Q6H PRN PRN Reason: Pain Furosemide (Lasix) 40 mg PO BID MARISELA Levofloxacin/Dextrose 500 mg/ (Premix) 100 mls @ 100 mls/hr IV Q24H MARISELA Nicotine (Habitrol) 21 mg TRDERM DAILY MARISELA Prednisone (Prednisone) 40 mg PO WITHBREAKFAST MARISELA Sertraline HCl (Zoloft) 50 mg PO BID MARISELA Sodium Chloride (Saline Flush) 10 ml FLUSH ASDIRECTED PRN PRN Reason: Keep Vein Open Sodium Chloride (Saline Flush) 2.5 ml FLUSH ASDIRECTED PRN PRN Reason: Keep Vein Open Assessment/Plan Comment:: Assessment: 1. Acute hypoxic respiratory failure secondary to moderate to large b/l pleural effusion 2. Possible CAP in the setting of COPD exacerbation 3. PMH: of chronic tobacco abuse/ chronic back pain secondary to failed back surgery/anxiety/ Lupus;anti-phospholipid. Plan. Admit to Inpatient/Full code/ Activity up ad kate/ DVT prophylaxis: SCD/ GI prophylaxis: Pantoprazole 40 daily 1. Moderate to large pleural effusion: 2. COPD/CAP: given one dose of Methylprednisolone; continue with PO prednisone daily. Levofloxacin iv daily: sputum culture/ ordered 3. Continue PO lasix starting tomorrow. continue home medication for pain. 4. pt understood plan.
[2019-10-06] MEDS ORDERED: Sertraline 50 MG Tab PO SCH (11:20)
[2019-10-06] MEDS: Acetaminophen/HYDROcodone 325-5 MG Tab PO PRN ×2 (12:11→18:44)
[2019-10-06] MEDS ORDERED: LORazepam 1 MG Tab PO PRN (15:53)
[2019-10-06] MEDS: Acetaminophen 325 MG Tab PO PRN ×2 (16:15→21:19)
[2019-10-06] MEDS: Albuterol/Ipratropium 3.0-0.5 MG/3 ML Neb Soln NEB SCH ×2 (17:55→21:06)
[2019-10-06 23:00] VITALS: BP 161/76; PULSE 115
[2019-10-07] MEDS ORDERED: predniSONE 20 MG Tab PO SCH (08:00)
[2019-10-07] MEDS ORDERED: Furosemide 40 MG Tab PO SCH (09:00)
== END 2019-10-07 00:35 ==
LOC: MW.ED 07:27 → MW.MS 10:30
PROVIDERS: ADMIT Internal Medicine; ATTEND Internal Medicine
DX: J96.01 Acute respiratory failure with hypoxia (principal); J44.1 Chronic obstructive pulmonary disease with (acute) exacerbation; J18.9 Pneumonia, unspecified organism; J90 Pleural effusion, not elsewhere classified; G89.28 Other chronic postprocedural pain; M32.9 Systemic lupus erythematosus, unspecified; D68.61 Antiphospholipid syndrome; I10 Essential (primary) hypertension; K21.9 Gastro-esophageal reflux disease without esophagitis; F41.9 Anxiety disorder, unspecified; M19.90 Unspecified osteoarthritis, unspecified site; F17.210 Nicotine dependence, cigarettes, uncomplicated; Z88.8 Allergy status to other drugs, medicaments and biological substances
CPT/HCPCS: 36415; 71275; 80053; 83605; 83690; 83880; 84484; 85025; 85610; 93005; 94640; A9270; J1940; J1956; J2060; J2930; J7620-GY

== ENCOUNTER 2020-05-20 23:18 | Emergency (ER) | payer MEDICAID ==
[2020-05-20] MEDS ORDERED: Diphtheria,Pertussis(Acell),Tetanus Vaccine 0.5 ML Syringe IM ONE (23:27)
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
[2020-05-20 23:54] LABS: BLOOD UREA NITROGEN,BUN 26 mg/dL (7.0-18.0); CARBON DIOXIDE,CO2 31.2 mmol/L (21.0-32.0); CHLORIDE,CL 100 mmol/L (98-107); GLUCOSE RANDOM 109 mg/dL (74-106); POTASSIUM,K 2.7 mmol/L (3.5-5.1); SODIUM,NA 141 mmol/L (136-145)
[2020-05-20] MEDS ORDERED: Lidocaine 1% with EPINEPHrine 1:100,000 20 ML MDV ONE (23:55)
[2020-05-21] MEDS ORDERED: Lidocaine 1% with EPINEPHrine 1:100,000 20 ML MDV INJECT ONE (00:45)
--- NOTE | 2020-05-21 00:51 | CT ---
INDICATION: S/P fall head trauma. CT HEAD WITHOUT CONTRAST TECHNIQUE: Multiple axial CT images were performed through the head without intravenous contrast administration. COMPARISON: No previous studies are currently available for comparison. FINDINGS: A small to moderate sized scalp hematoma is noted over the left forehead region. No convincing acute intracranial hemorrhage is identified. No extra-axial collections are evident and there is no mass effect or midline shift. Ventricles are normal in size and configuration. Brain parenchyma appears normal with unremarkable mir-white differentiation. Osseous structures are within normal limits and no fractures are seen. Included portions of the paranasal sinuses show mild mucosal thickening within the ethmoid and sphenoid sinuses. Mastoid air cells are normally aerated. IMPRESSION: 1. No intracranial abnormality identified. 2. Scalp hematoma over the left forehead. No fracture is seen. TAYE BASSETT MD [employer] Dictated by Khalif Bassett MD @ 05/21/2020 12:47:45 AM Dictated by: Khalif Bassett MD @ 05/21/2020 00:49:42 (Electronically Signed)
--- NOTE | 2020-05-21 00:56 | CT ---
INDICATION: S/P fall head trauma. CT CERVICAL SPINE WITHOUT CONTRAST TECHNIQUE: Multidetector axial CT imaging was performed through the cervical spine, without contrast. Sagittal and coronal reconstructions were generated. FINDINGS: No acute fractures are identified. There is straightening of cervical lordosis, possibly due to muscle spasm. Osseous alignment is otherwise unremarkable and no subluxation is seen. Prevertebral soft tissues appear normal. There are postoperative changes of anterior cervical fusion from C5 to C7. There are multilevel cervical spine degenerative changes, including diffuse degenerative disc disease and scattered cervical facet joint degenerative changes. Included portions of the airway and lung apices are within normal limits. IMPRESSION: 1. Straightened lordosis, possibly due to muscle spasm. No fracture, subluxation, or other acute finding identified. 2. Cervical spondylosis and postoperative changes, as noted above. TAYE BASSETT MD [employer] [facility] Dictated by Khalif Bassett MD @ 05/21/2020 12:51:18 AM Dictated by: Khalif Bassett MD @ 05/21/2020 00:53:30 (Electronically Signed)
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
[2020-05-21 01:42] VITALS: BP 123/80; PULSE 96
== END 2020-05-21 01:42 | disposition home or self-care (01) ==
LOC: MW.ED 23:18
DX: S01.01XA Laceration without foreign body of scalp, initial encounter (principal); F10.129 Alcohol abuse with intoxication, unspecified; I10 Essential (primary) hypertension; Y90.8 Blood alcohol level of 240 mg/100 ml or more; Z88.8 Allergy status to other drugs, medicaments and biological substances; Z79.899 Other long term (current) drug therapy; Z23 Encounter for immunization; W01.10XA Fall on same level from slipping, tripping and stumbling with subsequent striking against unspecified object, initial encounter
CPT/HCPCS: 12001; 36415; 70450; 70450-26; 71045; 71045-26; 72125; 72125-26; 80053; 80305-QW; 80307; 81025; 83735; 84484; 85025; 85610; 85730; 86900; 86901; 90471; 90715; 93005; 99285-25

== ENCOUNTER 2020-05-27 17:36 | Emergency (ER) | payer MEDICAID ==
[2020-05-27 21:50] VITALS: BP 127/86; PULSE 89
== END 2020-05-27 19:03 | disposition home or self-care (01) ==
LOC: MW.ED 17:36
DX: S01.01XD Laceration without foreign body of scalp, subsequent encounter (principal); W01.10XD Fall on same level from slipping, tripping and stumbling with subsequent striking against unspecified object, subsequent encounter
CPT/HCPCS: 99281

== ENCOUNTER 2021-03-16 13:28 | Emergency (ER) | payer MEDICARE, MEDICAID ==
[2021-03-16] MEDS ORDERED: Sodium Chloride 0.9% 2.5 ML Syringe FLUSH PRN (14:13)
[2021-03-16] MEDS ORDERED: Sodium Chloride 0.9% 10 ML Syringe FLUSH PRN (14:13)
[2021-03-16] MEDS ORDERED: Sodium Chloride 0.9% 500 ML IV STA (14:13)
[2021-03-16] MEDS ORDERED: HYDROmorphone 1 MG/ML Syringe IVPUSH ONE (14:21)
[2021-03-16] MEDS ORDERED: Ondansetron 4 MG/2 ML SDV IVPUSH ONE (14:21)
--- NOTE | 2021-03-16 14:24 | EDM.PDOC ---
ED HPI GENERAL MEDICAL PROBLEM - General Chief Complaint: Abdominal Pain Stated Complaint: BOWEL ISSUES Time Seen by Provider: 03/16/21 13:44 Source of Information: Reports: Patient History Limitations: Reports: No Limitations - History of Present Illness INITIAL COMMENTS - FREE TEXT/NARRATIVE: HISTORY AND PHYSICAL: History of present illness: The patient is a 45-year-old female with a recent history of bowel obstruction, and history of congestive heart failure, hypertension, anxiety, depression, who presents to the emergency department after being released on Saturday from [facility] for treatment of a bowel obstruction. Today the patient states that while her bloating had decreased while in the hospital it has now increased. Her pain has never changed and while in the hospital was treated with Dilaudid. The patient did have a NG tube x2 while in the hospital but states that we would have to put her under to insert anything like that again. Patient states she has never had a formed stool for the entire time she was in the hospital and has not had one yet. The patient states she is unable to eat or drink as of last night when she started vomiting. Patient states that her last CT of her abdomen was on Saturday and she was told that she still had a bowel obstruction in her lower colon. The patient states that about 4 months ago she was having constipation and saw her primary care who prescribed her magnesium citrate which took care of the problem until she developed a bowel obstruction approximately 17 days ago. The patient is hemodynamically stable with a blood pressure of 128/70 and a pulse of 84. The patient is afebrile with a temperature of 97.4. Review of systems: As per history of present illness and below otherwise all systems reviewed and negative. Past medical history: As per history of present illness and as reviewed below otherwise noncontributory. Surgical history: As per history of present illness and as reviewed below otherwise noncontributory. Social history: See social history for further information Family history: As per history of present illness and as reviewed below otherwise noncontributory. Physical exam: General: Well developed and well nourished. Alert and orientated x 3. Nontoxic in appearance and in no acute distress. Vital signs are stable and have been reviewed by me. Nursing notes were reviewed. HEENT: Atraumatic, normocephalic, pupils equal and reactive bilaterally, negative for conjunctival pallor or scleral icterus, mucous membranes moist, throat clear, neck supple, nontender, trachea midline. No drooling or trismus noted. No meningeal signs. No hot potato voice noted. Lungs: Clear to auscultation bilaterally. No wheezes, rales, or rhonchi. Chest nontender. Normal work of breathing, no accessory muscles used. Heart: S1S2, regular rate and rhythm without overt murmur, gallops, or rubs. No JVD. No peripheral edema Abdomen: Soft, distended, generalized tenderness. Hypoactive bowel sounds. Negative for masses or costovertebral tenderness. Skin: Intact, warm, dry. No lesions or rashes noted. Hematologic: No petechiae or purpra. Mucosa appropriate color and normal nail bed color and refill. Extremities: Atraumatic, moves all extremities per self without difficulty or deficits, negative for cords or calf pain. Neurovascular unremarkable. Neuro: Awake, alert, oriented. Cranial nerves II through XII unremarkable. Cerebellum unremarkable. Motor and sensory unremarkable throughout. Exam nonfocal. Psychiatric: Mood and affect are appropriate. Normal thought process. Answering questions appropriately. Notes: *This patient was seen and evaluated during the 2019 SARS-CoV-2 novel coronavirus pandemic period. Community viral transmission is ongoing at time of this encounter and the emergency department is operating under pandemic response procedures. Stated that the the patient was discharged on Saturday from [facility] after being treated for a bowel obstruction for 10 days. Patient states that while she had decreased bloating in the hospital upon being discharged the bloating return and is worse. Her pain has never went away and as of last night she is unable to eat or drink due to nausea and vomiting. The patient's lung sounds are clear. She has generalized tenderness over her abdomen which does appear bloated but is soft. I will give her 500 ml of fluids due to her history of heart failure. We will do blood work and an abdominal pelvis CT. I will attempt to get the records from the [facility]. 15:51 received the records from [facility] which indicated that she had a stay for a small bowel obstruction from 03/03/21 through 03/06/2021 and discharged home only to present to the clinic the next day and after a CT showed a worsening bowel obstruction with ileitis. She was readmitted on 03/07/2021 and discharged on 03/14/21. During her course of her stay she was on NG tube with intermittent suction. After day 2 they were able to clamp the tube and give her a trial of clear fluids. Apparently she had a couple incidences where she would overeat or overdrink and it would cause her to have abdominal discomfort and slow her progress. On 03/11/2021 her NG was to was fully removed and she maintained a full diet. According to her records she was moving and having bowel movements during the last 2 days of her stay. 16:[address] 17:31 The patient is leaving AMA as her CT has not been read. She states that she will get the results tomorrow from medical records and follow up with her primary care. 18:[address] results per radiologist:Impression: Demonstration of multiple thick walled, nondilated central loops of small bowel with mucosal hyperemia and scattered fluid distension likely representing infectious or inflammatory enteritis changes with minimal reactive fluid layering in the dependent pelvis. No definite evidence of obstruction. The patient is to follow up with her primary care as she left AMA. Hepatomegaly and hepatic steatosis. Trace bibasilar pleural effusions with adjacent compressive atelectasis versus infiltrates. Diagnostics: CBC, CMP, CT abdomen pelvis Therapeutics: 500 mL IV fluids Prescription: Impression: Left AMA Definitive disposition and diagnosis as appropriate pending reevaluation and review of above. Treatments CALL CENTER SPECIALIST: Reports: Acetaminophen, Other (see below) Other Treatments CALL CENTER SPECIALIST: zofran abdominal Pain Score (Numeric/FACES): 10 - Related Data Allergies Allergy/AdvReac Type Severity Reaction Status Date / Time metoclopramide [From Reglan] Allergy Rash Verified 03/16/21 13:47 Home Meds: Home Meds Acetaminophen/HYDROcodone [Parker 325-5 MG] 1 tab PO Q6H PRN 10/06/19 [History] Bumetanide [Bumex] 10/06/19 [History] Furosemide [Lasix] 40 mg PO BID 10/06/19 [History] Sertraline [Zoloft] 50 mg PO DAILY 10/06/19 [History] cloNIDine [Catapres-TTS 1] 0.1 mg PO BID 10/06/19 [History] LORazepam [Lorazepam] 1 mg PO 03/16/21 [History] Levothyroxine 03/16/21 [History] Zolpidem [Ambien] 10 mg PO BEDTIME 03/16/21 [History] Past Medical History HEENT History: Reports: Other (See Below) Other HEENT History: wears glasses Cardiovascular History: Reports: Blood Clots/VTE/DVT, Hypertension Other Cardiovascular History: hx DVT ro leg after c/section 15 yrs ago Respiratory History: Reports: None Gastrointestinal History: Reports: Bowel Obstruction, GERD Genitourinary History: Reports: None FLUMER History: Reports: Musculoskeletal History: Reports: Arthritis, Back Pain, Chronic, Fracture, Fibromyalgia, Neck Pain, Chronic Other Musculoskeletal History: hx fx collarbone Neurological History: Reports: None Psychiatric History: Reports: Anxiety Endocrine/Metabolic History: Reports: None Hematologic History: Reports: None Immunologic History: Reports: SLE Oncologic (Cancer) History: Reports: None Dermatologic History: Reports: None - Infectious Disease History Infectious Disease History: Reports: None - Past Surgical History Head Surgeries/Procedures: Reports: None HEENT Surgical History: Reports: Tonsillectomy, Other (See Below) Other HEENT Surgeries/Procedures: throat surgery - removal of vocal cord polyp Cardiovascular Surgical History: Reports: None Respiratory Surgical History: Reports: None GI Surgical History: Reports: Cholecystectomy Female Surgical History: Reports: None Endocrine Surgical History: Reports: None Neurological Surgical History: Reports: C-Spine, Lumbar Spine Other Neurological Surgeries/Procedures: back and neck surgery Musculoskeletal Surgical History: Reports: Carpal Tunnel, Shoulder Surgery, Other (See Below) Other Musculoskeletal Surgeries/Procedures:: shoulder surgery, back surgery and neck surgery Oncologic Surgical History: Reports: None Dermatological Surgical History: Reports: None Social & Family History - Family History Family Medical History: No Pertinent Family History - Tobacco Use Tobacco Use Status *Q: Never Tobacco User Second Hand Smoke Exposure: No - Caffeine Use Caffeine Use: Reports: None - Recreational Drug Use Recreational Drug Use: No ED ROS GENERAL - Review of Systems Review Of Systems: Comprehensive ROS is negative, except as noted in HPI. ED EXAM, GI/ABD - Physical Exam Exam: See Below (See dictation) Course - Vital Signs Last Recorded V/S: Last Vital Signs Temp 97.4 F 03/16/21 13:42 Pulse 67 03/16/21 17:02 Resp 18 03/16/21 13:42 BP 121/78 03/16/21 17:02 Pulse Ox 95 03/16/21 17:02 - Orders/Labs/Meds Orders: Active Orders 24 hr Category Date Time Status Sodium Chloride 0.9% [Saline Flush] Med 03/16/21 14:13 Active 10 ml FLUSH ASDIRECTED PRN Sodium Chloride 0.9% [Saline Flush] Med 03/16/21 14:13 Active 2.5 ml FLUSH ASDIRECTED PRN Saline Lock Insert [OM.PC] Stat Oth 03/16/21 14:12 Ordered Medication Orders Sodium Chloride (Sodium Chloride 0.9% 10 Ml Syringe) 10 ml FLUSH ASDIRECTED PRN PRN Reason: Keep Vein Open Last Admin: 03/16/21 15:05 Dose: 10 ml Documented by: NATALY Sodium Chloride (Sodium Chloride 0.9% 2.5 Ml Syringe) 2.5 ml FLUSH ASDIRECTED PRN PRN Reason: Keep Vein Open Last Admin: 03/16/21 15:05 Dose: 2.5 ml Documented by: NATALY Labs: Laboratory Tests 03/16/21 03/16/21 Range/Units 15:09 15:09 WBC 9.98 (4.0-11.0) K/uL RBC 4.37 (4.30-5.90) M/uL Hgb 12.6 (12.0-16.0) g/dL Hct 38.9 (36.0-46.0) % MCV 89.0 (80.0-98.0) fL MCH 28.8 (27.0-32.0) pg MCHC 32.4 (31.0-37.0) g/dL RDW Std Deviation 50.5 (28.0-62.0) fl RDW Coeff of Dayanna 16 H (11.0-15.0) % Plt Count 530 H (150-400) K/uL MPV 9.10 (7.40-12.00) fL Neut % (Auto) 71.3 (48.0-80.0) % Lymph % (Auto) 20.6 (16.0-40.0) % Maverick % (Auto) 7.7 (0.0-15.0) % Eos % (Auto) 0.2 (0.0-7.0) % Baso % (Auto) 0.2 (0.0-1.5) % Neut # (Auto) 7.1 H (1.4-5.7) K/uL Lymph # (Auto) 2.1 (0.6-2.4) K/uL Maverick # (Auto) 0.8 (0.0-0.8) K/uL Eos # (Auto) 0.0 (0.0-0.7) K/uL Baso # (Auto) 0.0 (0.0-0.1) K/uL Nucleated RBC % 0.0 /100WBC Nucleated RBCs # 0 K/uL Sodium 139 (136-145) mmol/L Potassium 3.3 L (3.5-5.1) mmol/L Chloride 105 (98-107) mmol/L Carbon Dioxide 28.3 (21.0-32.0) mmol/L BUN 11 (7.0-18.0) mg/dL Creatinine 0.9 (0.6-1.0) mg/dL Est Cr Clr Drug Dosing 75.95 mL/min Estimated GFR (MDRD) > 60.0 ml/min Glucose 80 (74-106) mg/dL Calcium 7.1 L (8.5-10.1) mg/dL Total Bilirubin 0.3 (0.2-1.0) mg/dL AST 35 (15-37) IU/L ALT 29 (14-63) IU/L Alkaline Phosphatase 121 H (46-116) U/L Total Protein 5.7 L (6.4-8.2) g/dL Albumin 2.1 L (3.4-5.0) g/dL Globulin 3.6 (2.6-4.0) g/dL Albumin/Globulin Ratio 0.6 L (0.9-1.6) Meds: Medications Generic Name Dose Route Start Last Admin Trade Name Freq PRN Reason Stop Dose Admin Sodium Chloride 10 ml 03/16/21 14:13 03/16/21 15:05 Sodium Chloride 0.9% 10 Ml Syringe FLUSH 10 ml ASDIRECTED PRN Administration Keep Vein Open Sodium Chloride 2.5 ml 03/16/21 14:13 03/16/21 15:05 Sodium Chloride 0.9% 2.5 Ml Syringe FLUSH 2.5 ml ASDIRECTED PRN Administration Keep Vein Open Discontinued Medications Generic Name Dose Route Start Last Admin Trade Name Freq PRN Reason Stop Dose Admin Hydromorphone HCl 1 mg 03/16/21 14:21 03/16/21 16:53 Hydromorphone 1 Mg/Ml Syringe IVPUSH 03/16/21 14:22 Not Given ONETIME ONE Sodium Chloride 500 mls @ 999 mls/hr 03/16/21 14:13 03/16/21 15:02 Normal Saline IV 03/16/21 14:43 999 mls/hr .BOLUS STA Administration Ondansetron HCl 4 mg 03/16/21 14:21 03/16/21 16:54 Ondansetron 4 Mg/2 Ml Sdv IVPUSH 03/16/21 14:22 Not Given ONETIME ONE Departure - Departure Time of Disposition: 17:31 Disposition: Against Medical Advice 07 Clinical Impression: Left against medical advice - Discharge Information Referrals: Samy Jones Jr, VI [Primary Care Provider] - Forms: ED Department Discharge Sepsis Event Note (ED) - Evaluation Sepsis Screening Result: No Definite Risk - Focused Exam Vital Signs: Vital Signs Temp Pulse Resp BP Pulse Ox 03/16/21 17:02 67 121/78 95 03/16/21 13:42 97.4 F 88 18 128/70 98 - My Orders Last 24 Hours: My Active Orders 03/16/21 14:12 Saline Lock Insert [OM.PC] Stat 03/16/21 14:13 Sodium Chloride 0.9% [Saline Flush] 10 ml FLUSH ASDIRECTED PRN Sodium Chloride 0.9% [Saline Flush] 2.5 ml FLUSH ASDIRECTED PRN - Assessment/Plan Last 24 Hours: My Active Orders 03/16/21 14:12 Saline Lock Insert [OM.PC] Stat 03/16/21 14:13 Sodium Chloride 0.9% [Saline Flush] 10 ml FLUSH ASDIRECTED PRN Sodium Chloride 0.9% [Saline Flush] 2.5 ml FLUSH ASDIRECTED PRN
[2021-03-16 15:53] LABS: BLOOD UREA NITROGEN,BUN 11 mg/dL (7.0-18.0); CARBON DIOXIDE,CO2 28.3 mmol/L (21.0-32.0); CHLORIDE,CL 105 mmol/L (98-107); GLUCOSE RANDOM 80 mg/dL (74-106); POTASSIUM,K 3.3 mmol/L (3.5-5.1); SODIUM,NA 139 mmol/L (136-145)
[2021-03-16 17:03] VITALS: BP 121/78; PULSE 67
--- NOTE | 2021-03-16 17:56 | CT ---
For Patients: As a result of the Century Cures Act, medical imaging exams and procedure reports are released immediately into your electronic medical record. You may view this report before your referring provider. If you have questions, please contact your health care provider. Indication: Bloating, abdominal pain, liquid stool history of prior small-bowel obstruction Technique: Volumetric multidetector CT images of the abdomen and pelvis were obtained after the administration of intravenous contrast. 100 cc Isovue 370 low osmolar intravenous contrast Comparison: None available. Findings: There is a trace right greater than left basilar pleural effusion with adjacent compressive atelectasis versus infiltrates. There is mild hepatomegaly and hepatic steatosis. The portal vein is patent. There is prior cholecystectomy. There is mild reservoir dilatation of the intrahepatic and common bile ducts. The spleen is normal in enhancement and size. The stomach and duodenum are grossly unremarkable. There is mild to moderate fatty atrophy of the pancreas. The adrenal glands are unremarkable. The kidneys demonstrate preserved corticomedullary differentiation without evidence of obstructive uropathy. There is diffuse nonspecific thickening and hyperemia of multiple distal small bowel loops without evidence of significant dilatation to suggest obstruction. There is minimal distal colonic diverticulosis within otherwise decompressed appearing colon. The appendix is unremarkable. There is no significant mesenteric, retroperitoneal, or pelvic sidewall lymph nodes. The aorta is nonaneurysmal. There is no significant atherosclerotic disease appreciated. The solid pelvic viscera are grossly unremarkable. There is no free fluid or free air. The anterior abdominal wall is intact without significant hernias. Postoperative changes of the lumbosacral spine are appreciated without evidence of acute osseous abnormality. There is likely somewhat pathogenic changes of the L5 posterior elements. Impression: Demonstration of multiple thick walled, nondilated central loops of small bowel with mucosal hyperemia and scattered fluid distension likely representing infectious or inflammatory enteritis changes with minimal reactive fluid layering in the dependent pelvis. No definite evidence of obstruction. Hepatomegaly and hepatic steatosis. Trace bibasilar pleural effusions with adjacent compressive atelectasis versus infiltrates. Please note that all CT scans at this facility use dose modulation, iterative reconstruction, and/or weight-based dosing when appropriate to reduce radiation dose to as low as reasonably achievable. Dictated by Trip Domingo MD @ 03/16/2021 5:54:[address] Trip Domingo @ Mar 16 2021 5:54PM
[2021-03-16] MEDS ORDERED: Iopamidol 755 MG/ML 500 ML Multipack Bottle IVPUSH STA (18:42)
== END 2021-03-16 17:33 | disposition left against medical advice (07) ==
LOC: MW.ED 13:28
DX: R14.0 Abdominal distension (gaseous) (principal); I11.0 Hypertensive heart disease with heart failure; I50.9 Heart failure, unspecified
CPT/HCPCS: 36415; 74177; 80053; 85025; 99284; J7040; Q9967

== ENCOUNTER 2021-03-25 20:26 | Inpatient (IN) | payer MEDICARE, MEDICAID ==
--- NOTE | 2021-03-25 20:32 | EDM.PDOC ---
<Dank Avitia - Last Filed: 03/26/21 01:50> ED HPI GENERAL MEDICAL PROBLEM - General Stated Complaint: ABDOMINAL PAIN, RECTAL BLEEDING Time Seen by Provider: 03/25/21 20:30 - Related Data Allergies Allergy/AdvReac Type Severity Reaction Status Date / Time metoclopramide [From Reglan] Allergy Rash Verified 03/26/21 05:01 Home Meds: Home Meds Acetaminophen/HYDROcodone [Bruceton 325-5 MG] 1 tab PO Q6H PRN 10/06/19 [History] Furosemide [Lasix] 40 mg PO DAILY 10/06/19 [History] Sertraline [Zoloft] 50 mg PO DAILY 10/06/19 [History] cloNIDine [Catapres-TTS 1] 2 mg PO BID 10/06/19 [History] LORazepam [Lorazepam] 1 mg PO TID PRN 03/16/21 [History] Levothyroxine 100 mcg PO DAILY 03/16/21 [History] Zolpidem [Ambien] 10 mg PO BEDTIME 03/16/21 [History] Amitriptyline [Elavil] 20 mg PO BEDTIME 03/26/21 [History] Gabapentin [Neurontin] 600 mg PO TID 03/26/21 [History] cloNIDine [Catapres] 2 mg PO BID 03/26/21 [History] clonazePAM [Clonazepam] 2 mg PO BID 03/26/21 [History] Course - Re-Assessments/Exams Free Text/Narrative Re-Assessment/Exam: 03/26/21 01:50 Patient was signed out to me from [employer] 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 There was some problems the images over the images cannot be read but patient found to have SBO with follow-up with general surgery recommends been a G-tube and maintenance fluids and admit to medicine. Medicine will admit and will see in the morning. Departure - Departure Time of Disposition: 01:51 Disposition: Admitted As Inpatient 65 Condition: Good Clinical Impression: SBO (small bowel obstruction) - Discharge Information *PRESCRIPTION DRUG MONITORING PROGRAM REVIEWED*: Not Applicable *COPY OF PRESCRIPTION DRUG MONITORING REPORT IN PATIENT AUDRA: Not Applicable Critical Care Note - Critical Care Note Total Time (mins): 45 Comments: Critical Care Procedure Note Authorized and Performed by: Dr. Avitia Total critical care time: Approximately Due to a high probability of clinically significant, life threatening deterioration, the patient required my highest level of preparedness to intervene emergently and I personally spent this critical care time directly and personally managing the patient. This critical care time included obtaining a history; examining the patient; pulse oximetry; ordering and review of studies; arranging urgent treatment with development of a management plan; evaluation of patient's response to treatment; frequent reassessment; and, discussions with other providers. This critical care time was performed to assess and manage the high probability of imminent, life-threatening deterioration that could result in multi-organ failure. It was exclusive of separately billable procedures and treating other patients and teaching time. <Thomas Portillo E - Last Filed: 03/26/21 09:59> ED HPI GENERAL MEDICAL PROBLEM - General Source of Information: Reports: Patient History Limitations: Reports: No Limitations - History of Present Illness INITIAL COMMENTS - FREE TEXT/NARRATIVE: HISTORY AND PHYSICAL: History of present illness: Patient is a 45-year-old female who presents to the emergency room with complaints of a "bowel obstruction" x 31 days. Patient reports she has a history of bowel obstruction, congestive heart failure, hypertension, anxiety, and depression. Patient has been seen multiple times for her abdominal, including [facility], our emergency room and most recently Dr. Nagy (general surgeon) on as an outpatient. She reports Dr. Nagy told her she has a bowel obstruction and he wants to do a barium swallow study for further evaluation of this. She was advised to not do any form of mag citrate, enema or stool softeners. She states her last bowel movement which was liquid was this morning, and she had noticed bright red blood in her stool. This occurred once, no active bleeding. Patient states she is having generalized abdominal pain, nausea and sensation of feeling bloated. Patient denies any fever, chills, headache, change in vision, syncope or near syncope. Denies any chest pain, back pain, shortness of breath or cough. Denies any vomiting, diarrhea, or dysuria. Has not noted any blood in urine. No concern for , hysterectomy. Patient has been eating and drinking less than usual due to feeling "bloated". Review of systems: As per history of present illness and below otherwise all systems reviewed and negative. Past medical history: As per history of present illness and as reviewed below otherwise noncontributory. Surgical history: As per history of present illness and as reviewed below otherwise noncontributory. Social history: See social history for further information Family history: As per history of present illness and as reviewed below otherwise noncontributory. Physical exam: General: Well developed and well nourished 45-year-old female. Alert and orientated x 3. Nontoxic in appearance and in no acute distress. Vital signs are stable and have been reviewed by me. Nursing notes were reviewed. HEENT: Atraumatic, normocephalic, pupils equal and reactive bilaterally, negative for conjunctival pallor or scleral icterus, mucous membranes moist, trachea midline. No drooling or trismus noted. No meningeal signs. No hot potato voice noted. Lungs: Clear to auscultation bilaterally. No wheezes, rales, or rhonchi. Chest nontender. Normal work of breathing, no accessory muscles used. Heart: S1S2, regular rate and rhythm without overt murmur, gallops, or rubs. No JVD. No peripheral edema Abdomen: Soft, nondistended, diffuse tenderness in all 4 quadrants. Hypoactive bowel sounds. Negative for masses or costovertebral tenderness. Pelvis: Stable nontender. Genitourinary/Rectal: This was done with consent and a senior formulation scientist at the bedside. Her stool is indeterminate as I was unable to get much of a sample for the Hemoccult card. Sample that was obtained is negative. No hemorrhoids noted. Tolerated fair. Skin: Intact, warm, dry. No lesions or rashes noted. Hematologic: No petechiae or purpra. Mucosa appropriate color and normal nail bed color and refill. Extremities: Atraumatic, moves all extremities per self without difficulty or deficits, negative for cords or calf pain. Neurovascular unremarkable. Neuro: Awake, alert, oriented. Cranial nerves II through XII unremarkable. Cerebellum unremarkable. Motor and sensory unremarkable throughout. Exam nonfocal. Psychiatric: Mood and affect are appropriate. Normal thought process. Answering questions appropriately. Notes: *This patient was seen and evaluated during the 2019 SARS-CoV-2 novel coronavirus pandemic period. Community viral transmission is ongoing at time of this encounter and the emergency department is operating under pandemic res ponse procedures. 03/16/2021: Previous ER CT of the abdomen and pelvis shows trace right greater than left basilar pleural effusion. Mild hepatomegaly and hepatic stenosis. Mild reservoir dilatation of the intrahepatic and common bile ducts. There is diffuse nonspecific thickening and hyperemia of multiple distal small bowel loops without evidence of significant dilatation to suggest obstruction. There is minimal distal colonic diverticulosis within otherwise compressed appearing colon. Labs and imagining are pending. Dr Avitia has been given report and will assume care of this patient. Diagnostics: CBC, CMP, Lipase, UA, CT abd/pelvis Therapeutics: IV fluids, Zofran, Toradol Definitive disposition and diagnosis as appropriate pending reevaluation and review of above. abd Pain Score (Numeric/FACES): 10 Past Medical History HEENT History: Reports: Other (See Below) Other HEENT History: wears glasses Cardiovascular History: Reports: Blood Clots/VTE/DVT, Hypertension Other Cardiovascular History: hx DVT ro leg after c/section 15 yrs ago Respiratory History: Reports: None Gastrointestinal History: Reports: Bowel Obstruction, GERD Genitourinary History: Reports: None PATHOLOGY ASSISTANT History: Reports: Musculoskeletal History: Reports: Arthritis, Back Pain, Chronic, Fracture, Fibromyalgia, Neck Pain, Chronic Other Musculoskeletal History: hx fx collarbone Neurological History: Reports: None Psychiatric History: Reports: Anxiety Endocrine/Metabolic History: Reports: None Hematologic History: Reports: None Immunologic History: Reports: SLE Oncologic (Cancer) History: Reports: None Dermatologic History: Reports: None - Infectious Disease History Infectious Disease History: Reports: None - Past Surgical History Head Surgeries/Procedures: Reports: None HEENT Surgical History: Reports: Tonsillectomy, Other (See Below) Other HEENT Surgeries/Procedures: throat surgery - removal of vocal cord polyp Cardiovascular Surgical History: Reports: None Respiratory Surgical History: Reports: None GI Surgical History: Reports: Cholecystectomy Female Surgical History: Reports: None Endocrine Surgical History: Reports: None Neurological Surgical History: Reports: C-Spine, Lumbar Spine Other Neurological Surgeries/Procedures: back and neck surgery Musculoskeletal Surgical History: Reports: Carpal Tunnel, Shoulder Surgery, Other (See Below) Other Musculoskeletal Surgeries/Procedures:: shoulder surgery, back surgery and neck surgery Oncologic Surgical History: Reports: None Dermatological Surgical History: Reports: None Social & Family History - Family History Family Medical History: No Pertinent Family History - Caffeine Use Caffeine Use: Reports: None ED ROS GENERAL - Review of Systems Review Of Systems: Comprehensive ROS is negative, except as noted in HPI. ED EXAM, GI/ABD - Physical Exam Exam: See Below (See dictation) Course - Vital Signs Last Recorded V/S: Last Vital Signs Temp 98.3 F 03/26/21 09:10 Pulse 74 03/26/21 09:10 Resp 16 03/26/21 09:10 BP 115/84 03/26/21 09:10 Pulse Ox 93 L 03/26/21 09:10 - Orders/Labs/Meds Orders: Active Orders 24 hr Category Date Time Status Patient Status [ADT] Routine ADT 03/26/21 01:50 Active Sodium Chloride 0.9% [Normal Saline] 1,000 ml Med 03/26/21 02:00 Active IV ASDIRECTED Sodium Chloride 0.9% [Normal Saline] 500 ml Med 03/25/21 21:00 Active IV STAT Medication Orders Dextrose/Water (50% Dextrose In Water 50 Ml Syringe) 50 ml IVPUSH ASDIRECTED PRN PRN Reason: Hypoglycemia Enoxaparin Sodium (Enoxaparin 40 Mg/0.4 Ml Syringe) 40 mg SUBCUT Q24H [facility] Last Admin: 03/26/21 09:04 Dose: 40 mg Documented by: EJROD Hydromorphone HCl (Hydromorphone 1 Mg/Ml Syringe) 1 mg IVPUSH Q1H PRN PRN Reason: Pain Sodium Chloride (Normal Saline) 500 mls @ 999 mls/hr IV STAT [facility] Last Admin: 03/25/21 21:40 Dose: 999 mls/hr Documented by: CARERIC Sodium Chloride (Normal Saline) 1,000 mls @ 150 mls/hr IV ASDIRECTED [facility] Last Admin: 03/26/21 04:57 Dose: 150 mls/hr Documented by: ISI Pantoprazole Sodium 40 mg/ (Sodium Chloride) 10 mls @ 300 mls/hr IV DAILY [facility] Last Admin: 03/26/21 08:51 Dose: 300 mls/hr Documented by: JEROD Lactated Ringer's (Ringers, Lactated) 1,000 mls @ 125 mls/hr IV ASDIRECTED [facility] Last Admin: 03/26/21 06:14 Dose: 125 mls/hr Documented by: ISI Lorazepam (Lorazepam 2 Mg/Ml Sdv) 1 mg IVPUSH Q4H PRN PRN Reason: Anxiety Ondansetron HCl (Ondansetron 4 Mg/2 Ml Sdv) 4 mg IVPUSH Q4H PRN PRN Reason: Nausea/Vomiting Last Admin: 03/26/21 06:48 Dose: 4 mg Documented by: ISI Labs: Laboratory Tests 03/25/21 03/25/21 Range/Units 21:51 21:51 WBC 10.80 (4.0-11.0) K/uL RBC 4.02 L (4.30-5.90) M/uL Hgb 11.6 L (12.0-16.0) g/dL Hct 36.1 (36.0-46.0) % MCV 89.8 (80.0-98.0) fL MCH 28.9 (27.0-32.0) pg MCHC 32.1 (31.0-37.0) g/dL RDW Std Deviation 53.6 (28.0-62.0) fl RDW Coeff of Dayanna 16 H (11.0-15.0) % Plt Count 476 H (150-400) K/uL MPV 9.30 (7.40-12.00) fL Neut % (Auto) 70.3 (48.0-80.0) % Lymph % (Auto) 20.0 (16.0-40.0) % [place] % (Auto) 8.1 (0.0-15.0) % Eos % (Auto) 1.4 (0.0-7.0) % Baso % (Auto) 0.2 (0.0-1.5) % Neut # (Auto) 7.6 H (1.4-5.7) K/uL Lymph # (Auto) 2.2 (0.6-2.4) K/uL Valencia # (Auto) 0.9 H (0.0-0.8) K/uL Eos # (Auto) 0.2 (0.0-0.7) K/uL Baso # (Auto) 0.0 (0.0-0.1) K/uL Nucleated RBC % 0.0 /100WBC Nucleated RBCs # 0 K/uL Sodium 138 (136-145) mmol/L Potassium 4.4 (3.5-5.1) mmol/L Chloride 103 (98-107) mmol/L Carbon Dioxide 26.2 (21.0-32.0) mmol/L BUN 12 (7.0-18.0) mg/dL Creatinine 0.9 (0.6-1.0) mg/dL Est Cr Clr Drug Dosing 75.95 mL/min Estimated GFR (MDRD) > 60.0 ml/min Glucose 85 (74-106) mg/dL Calcium 7.9 L (8.5-10.1) mg/dL Total Bilirubin 0.3 (0.2-1.0) mg/dL AST 17 (15-37) IU/L ALT 18 (14-63) IU/L Alkaline Phosphatase 99 (46-116) U/L Total Protein 5.8 L (6.4-8.2) g/dL Albumin 2.3 L (3.4-5.0) g/dL Globulin 3.5 (2.6-4.0) g/dL Albumin/Globulin Ratio 0.7 L (0.9-1.6) Lipase 33 L (73-393) U/L Meds: Medications Generic Name Dose Route Start Last Admin Trade Name Freq PRN Reason Stop Dose Admin Dextrose/Water 50 ml 03/26/21 06:35 50% Dextrose In Water 50 Ml Syringe IVPUSH ASDIRECTED PRN Hypoglycemia Enoxaparin Sodium 40 mg 03/26/21 08:00 03/26/21 09:04 Enoxaparin 40 Mg/0.4 Ml Syringe SUBCUT 40 mg Q24H MARISELA Administration Hydromorphone HCl 1 mg 03/26/21 09:17 Hydromorphone 1 Mg/Ml Syringe IVPUSH Q1H PRN Pain Sodium Chloride 500 mls @ 999 mls/hr 03/25/21 21:00 03/25/21 21:40 Normal Saline IV 999 mls/hr STAT MARISELA Administration Sodium Chloride 1,000 mls @ 150 mls/hr 03/26/21 02:00 03/26/21 04:57 Normal Saline IV 150 mls/hr ASDIRECTED MARISELA Administration Pantoprazole Sodium 40 mg/ 10 mls @ 300 mls/hr 03/26/21 09:00 03/26/21 08:51 Sodium Chloride IV 300 mls/hr DAILY MARISELA Administration Lactated Ringer's 1,000 mls @ 125 mls/hr 03/26/21 06:00 03/26/21 06:14 Ringers, Lactated IV 125 mls/hr ASDIRECTED MARISELA Administration Lorazepam 1 mg 03/26/21 12:00 Lorazepam 2 Mg/Ml Sdv IVPUSH Q4H PRN Anxiety Ondansetron HCl 4 mg 03/26/21 05:54 03/26/21 06:48 Ondansetron 4 Mg/2 Ml Sdv IVPUSH 4 mg Q4H PRN Administration Nausea/Vomiting Discontinued Medications Generic Name Dose Route Start Last Admin Trade Name Freq PRN Reason Stop Dose Admin Benzocaine 1 each 03/26/21 02:26 03/26/21 02:37 Benzocaine 20% Topical Hilger Ud MUCMEM 03/26/21 02:27 1 each ONETIME ONE Administration Hydromorphone HCl 1 mg 03/25/21 23:07 03/25/21 23:14 Hydromorphone 1 Mg/Ml Syringe IVPUSH 03/25/21 23:08 1 mg ONETIME ONE Administration Hydromorphone HCl 1 mg 03/26/21 04:29 03/26/21 04:40 Hydromorphone 1 Mg/Ml Syringe IVPUSH 03/26/21 04:30 1 mg ONETIME ONE Administration Hydromorphone HCl Confirm 03/26/21 08:44 03/26/21 08:49 Hydromorphone 1 Mg/Ml Syringe Administered 03/26/21 08:45 1 mg Dose Administration 1 mg .ROUTE .STK-MED ONE Iopamidol 100 ml 03/25/21 22:13 03/25/21 23:46 Iopamidol 755 Mg/Ml 500 Ml Multipack Bottle IVPUSH 03/25/21 22:14 100 ml ONETIME STA Administration Ketorolac Tromethamine 30 mg 03/25/21 20:46 03/25/21 21:36 Ketorolac 30 Mg/Ml Sdv IVPUSH 03/25/21 20:47 30 mg ONETIME ONE Administration Lorazepam 2 mg 03/26/21 08:49 03/26/21 08:59 Lorazepam 2 Mg/Ml Sdv IVPUSH 03/26/21 08:50 2 mg ONETIME ONE Administration Midazolam HCl 1 mg 03/26/21 02:10 03/26/21 02:38 Midazolam 1 Mg/Ml 2 Ml Sdv IVPUSH 03/26/21 02:11 1 mg ONETIME ONE Administration Morphine Sulfate 1 mg 03/26/21 05:53 03/26/21 06:10 Morphine 2 Mg/Ml Syringe IVPUSH 1 mg Q4H PRN Administration Pain Ondansetron HCl 4 mg 03/25/21 20:46 03/25/21 21:36 Ondansetron 4 Mg/2 Ml Sdv IVPUSH 03/25/21 20:47 4 mg ONETIME ONE Administration Sepsis Event Note (ED) - Focused Exam Vital Signs: Vital Signs Pulse Resp BP Pulse Ox 03/26/21 00:20 77 16 103/52 L 93 L - My Orders Last 24 Hours: My Active Orders 03/25/21 21:00 Sodium Chloride 0.9% [Normal Saline] 500 ml IV STAT - Assessment/Plan Last 24 Hours: My Active Orders 03/25/21 21:00 Sodium Chloride 0.9% [Normal Saline] 500 ml IV STAT
[2021-03-25] MEDS ORDERED: Ketorolac 30 MG/ML SDV IVPUSH ONE (20:46)
[2021-03-25] MEDS ORDERED: Ondansetron 4 MG/2 ML SDV IVPUSH ONE (20:46)
[2021-03-25] MEDS ORDERED: Sodium Chloride 0.9% 500 ML IV SCH (21:00)
[2021-03-25] MEDS ORDERED: Iopamidol 755 MG/ML 500 ML Multipack Bottle IVPUSH STA (22:13)
[2021-03-25 22:16] LABS: BLOOD UREA NITROGEN,BUN 12 mg/dL (7.0-18.0); CARBON DIOXIDE,CO2 26.2 mmol/L (21.0-32.0); CHLORIDE,CL 103 mmol/L (98-107); GLUCOSE RANDOM 85 mg/dL (74-106); LIPASE 33 U/L (73-393); POTASSIUM,K 4.4 mmol/L (3.5-5.1); SODIUM,NA 138 mmol/L (136-145)
[2021-03-25] MEDS ORDERED: HYDROmorphone 1 MG/ML Syringe IVPUSH ONE (23:07)
--- NOTE | 2021-03-26 01:22 | CT ---
Clinical indication : Abdominal pain. TECHNIQUE: Axial intravenously infused CT cuts from above diaphragm to below the tuberosities. One hundred mL of Isovue-[id number] was injected intravenously. COMPARISON: 03/16/2021. FINDINGS: There is no contrast visible in the images. There has been a cholecystectomy. The liver, spleen, pancreas, adrenals and left kidney appear normal. There is a 5 mm nonobstructing calculus of the right kidney. There are no ureteral or bladder calculi. There are there are several fluid distended loops of small bowel whereas some of the small bowel loops are relatively collapsed consistent with small bowel obstruction. Some of the dilated small bowel has feculent contents. There is a stool throughout the colon. There is small amount free fluid within the abdomen and pelvis. There is no free intraperitoneal air. There are no enlarged retroperitoneal, mesenteric, iliac or inguinal lymph nodes. The uterus has been removed. The urinary bladder appears normal. There has been a fusion procedure at L4, L5 and S1 with metallic hardware. There is a patchy atelectasis bilaterally with a minimal amount of pleural fluid on the left. IMPRESSION: 1. Small bowel obstruction. 2. There is no IV contrast visible despite documentation usage of IV contrast. The injections site should be checked for interstitial injection. 3. Nonobstructive right renal calculus. 4. Status post cholecystectomy, hysterectomy and lumbar lumbosacral fusion. Please note that all CT scans at this facility use dose modulation, iterative reconstruction, and/or weight-based dosing when appropriate to reduce radiation dose to as low as reasonably achievable. Dictated by Satnam Ward MD @ 03/26/2021 1:19:[address] Satnam Ward @ Mar 26 2021 1:19AM
[2021-03-26] MEDS ORDERED: Sodium Chloride 0.9% 1,000 ML IV SCH (02:00)
[2021-03-26] MEDS ORDERED: Midazolam 1 MG/ML 2 ML SDV IVPUSH ONE (02:10)
[2021-03-26] MEDS ORDERED: Benzocaine 20% Topical Spray UD MUCMEM ONE (02:26)
--- NOTE | 2021-03-26 04:06 | CR ---
Indication: NG tube placement Technique: Abdomen 1 view Comparison: None Findings/Impression: Nasogastric tube with tip at the distal stomach. Portal and loops of small bowel within the upper abdomen. Right upper quadrant surgical clips. Bibasilar opacities, likely patchy atelectasis. Dictated by Dago Houser MD @ 03/26/2021 4:03:[address] Dago Houser @ Mar 26 2021 4:03AM
[2021-03-26] MEDS ORDERED: HYDROmorphone 1 MG/ML Syringe IVPUSH ONE (04:29)
[2021-03-26] MEDS ORDERED: Morphine 2 MG/ML SYRINGE IVPUSH PRN (05:53)
[2021-03-26] MEDS ORDERED: Lactated Ringers 1,000 ML IV SCH (06:00)
[2021-03-26] MEDS: Ondansetron 4 MG/2 ML SDV IVPUSH PRN ×2 (06:48→18:19)
[2021-03-26] MEDS ORDERED: HYDROmorphone 1 MG/ML Syringe ONE (08:44)
[2021-03-26] MEDS ORDERED: LORazepam 2 MG/ML SDV IVPUSH ONE (08:49)
[2021-03-26] MEDS: Pantoprazole 40 MG in Sodium Chloride 0.9% 10 ML IV SCH (08:51)
[2021-03-26] MEDS: Enoxaparin 40 MG/0.4 ML Syringe SUBCUT SCH (09:04)
[2021-03-26] MEDS: HYDROmorphone 1 MG/ML Syringe IVPUSH PRN ×8 (10:07→22:03)
--- NOTE | 2021-03-26 10:15 | PCM.HP.2 ---
<Indy Vásquez - Last Filed: 03/26/21 14:29> H&P History of Present Illness - General Date of Service: 03/26/21 Admit Problem/Dx: Admission Diagnosis/Problem Admission Diagnosis/Problem Small bowel obstruction Source of Information: Patient History Limitations: Reports: No Limitations - History of Present Illness Initial Comments - Free Text/Narative: Pt is a 45 y/o F with previous history of bowel obstructions, CHF, anxiety, depression, Graves' disease and fibromyalgia with history of cholecystectomy, hysterectomy and vertebral fusion surgery. Came in with complaints of 32 days of abdominal pain 10 out of 10 on the pain scale, states that she had bright red bowel movement 1 day prior pain is associated with generalized abdominal pain felt diffusely however most prominent in the left lower quadrant. Associated with nausea and bloating denies any fever chills, denies any shortness of breath, vomiting or diarrhea. Patient has previously been seen in [place] for this as well as recently seen by Dr. Nagy in general surgery within the last week. Last night she was admitted for small bowel obstruction as noted on her abdominal CT. Surgery has been consulted, patient n.p.o., with appropriate medication for pain and anxiety. States she feels mildly improved was seen laying in bed at bedside all questions and concerns were addressed with NG tube in place draining appropriately. Location: Reports: Abdomen Quality: Reports: Ache abd Pain Score (Numeric/FACES): 10 - Related Data Allergies/Adverse Reactions: Allergies Allergy/AdvReac Type Severity Reaction Status Date / Time metoclopramide [From Reglan] Allergy Rash Verified 03/26/21 05:01 Home Medications: Home Meds Acetaminophen/HYDROcodone [[place] 325-5 MG] 1 tab PO Q6H PRN 10/06/19 [History] Furosemide [Lasix] 40 mg PO DAILY 10/06/19 [History] Sertraline [Zoloft] 50 mg PO DAILY 10/06/19 [History] cloNIDine [Catapres-TTS 1] 2 mg PO BID 10/06/19 [History] LORazepam [Lorazepam] 1 mg PO TID PRN 03/16/21 [History] Levothyroxine 100 mcg PO DAILY 03/16/21 [History] Zolpidem [Ambien] 10 mg PO BEDTIME 03/16/21 [History] Amitriptyline [Elavil] 20 mg PO BEDTIME 03/26/21 [History] Gabapentin [Neurontin] 600 mg PO TID 03/26/21 [History] cloNIDine [Catapres] 2 mg PO BID 03/26/21 [History] clonazePAM [Clonazepam] 2 mg PO BID 03/26/21 [History] Past Medical History HEENT History: Reports: Other (See Below) Other HEENT History: wears glasses Cardiovascular History: Reports: Blood Clots/VTE/DVT, Heart Failure, Hypertension Other Cardiovascular History: hx DVT ro leg after c/section 15 yrs ago Respiratory History: Reports: SOB Gastrointestinal History: Reports: Bowel Obstruction, GERD Genitourinary History: Reports: UTI, Recurrent [employer] History: Reports: Musculoskeletal History: Reports: Arthritis, Back Pain, Chronic, Fracture, Fibromyalgia, Neck Pain, Chronic, SLE Other Musculoskeletal History: hx fx collarbone Neurological History: Reports: Head Trauma, Migraines Psychiatric History: Reports: Anxiety, Depression, PTSD Endocrine/Metabolic History: Reports: Hyperthyroidism, Hypothyroidism Hematologic History: Reports: None Immunologic History: Reports: SLE, Other (See Below) Other Immunologic History: grave's disease Oncologic (Cancer) History: Reports: None Dermatologic History: Reports: None - Infectious Disease History Infectious Disease History: Reports: None - Past Surgical History Head Surgeries/Procedures: Reports: None HEENT Surgical History: Reports: Tonsillectomy, Other (See Below) Other HEENT Surgeries/Procedures: throat surgery - removal of vocal cord polyp Cardiovascular Surgical History: Reports: None Respiratory Surgical History: Reports: None GI Surgical History: Reports: Cholecystectomy Female Surgical History: Reports: Hysterectomy Endocrine Surgical History: Reports: None Neurological Surgical History: Reports: C-Spine, Lumbar Spine Other Neurological Surgeries/Procedures: back and neck surgery Musculoskeletal Surgical History: Reports: Carpal Tunnel, Shoulder Surgery, Other (See Below) Other Musculoskeletal Surgeries/Procedures:: shoulder surgery, back surgery and neck surgery Oncologic Surgical History: Reports: None Dermatological Surgical History: Reports: None Social & Family History - Family History Family Medical History: No Pertinent Family History - Tobacco Use Tobacco Use Status *Q: Former Tobacco User Years of Tobacco use: 30 Used Tobacco, but Quit: Yes Month/Year Tobacco Last Used: April 2020 Second Hand Smoke Exposure: No - Caffeine Use Caffeine Use: Reports: Soda - Recreational Drug Use Recreational Drug Use: No H&P Review of Systems - Review of Systems: Review Of Systems: See Below General: Reports: Decreased Appetite HEENT: Reports: No Symptoms Pulmonary: Reports: No Symptoms Cardiovascular: Reports: No Symptoms Gastrointestinal: Reports: Abdominal Pain, Bloody Stool, Decreased Appetite. Denies: Nausea, Vomiting Genitourinary: Reports: No Symptoms Musculoskeletal: Reports: No Symptoms Skin: Reports: No Symptoms Psychiatric: Reports: No Symptoms Neurological: Reports: No Symptoms Hematologic/Lymphatic: Reports: No Symptoms Immunologic: Reports: No Symptoms Exam - Exam Exam: See Below - Vital Signs Vital Signs: Last Vital Signs Temp 98.3 F 03/26/21 09:10 Pulse 74 03/26/21 09:10 Resp 16 03/26/21 09:10 BP 115/84 03/26/21 09:10 Pulse Ox 93 L 03/26/21 09:10 Weight: 80.24 kg - Exam Quality Assessment: DVT Prophylaxis General: Alert, Oriented, Cooperative, Mild Distress HEENT: Conjunctiva Clear, EACs Clear, EOMI, Mucosa Moist & [place], PERRLA Neck: Supple, Trachea Midline Lungs: Clear to Auscultation, Normal Respiratory Effort Cardiovascular: Regular Rate, Regular Rhythm GI/Abdominal Exam: Normal Bowel Sounds, Soft, No Organomegaly, No Abnormal Bruit, No Mass, Rebound, Tender. No: Distended, Guarding, Rigid (Female) Exam: Normal External Exam, Normal Speculum Exam, Normal Bimanual Exam Extremities: Normal Inspection, Normal Range of Motion, Non-Tender, No Pedal Edema, Normal Capillary Refill Peripheral Pulses: 2+: Carotid (L), Carotid (R), Dorsalis Pedis (L), Dorsalis Pedis (R) Skin: Warm, Dry, Intact Neurological: Cranial Nerves Intact, Reflexes Equal Bilateral Neuro Extensive - Mental Status: Alert, Oriented x3, Normal Mood/Affect Neuro Extensive - Motor, Sensory, Reflexes: CN II-XII Intact, Normal Gait, Normal Reflexes DTR: 2+: Bicep (L), Bicep (R), Achilles (L), Achilles (R) Psychiatric: Alert, Normal Affect, Normal Mood - Patient Data Lab Results Last 24 hrs: Laboratory Results - last 24 hr 03/25/21 03/25/21 03/26/21 Range/Units 21:51 21:51 02:01 WBC 10.80 (4.0-11.0) K/uL RBC 4.02 L (4.30-5.90) M/uL Hgb 11.6 L (12.0-16.0) g/dL Hct 36.1 (36.0-46.0) % MCV 89.8 (80.0-98.0) fL MCH 28.9 (27.0-32.0) pg MCHC 32.1 (31.0-37.0) g/dL RDW Std Deviation 53.6 (28.0-62.0) fl RDW Coeff of Dayanna 16 H (11.0-15.0) % Plt Count 476 H (150-400) K/uL MPV 9.30 (7.40-12.00) fL Neut % (Auto) 70.3 (48.0-80.0) % Lymph % (Auto) 20.0 (16.0-40.0) % [place] % (Auto) 8.1 (0.0-15.0) % Eos % (Auto) 1.4 (0.0-7.0) % Baso % (Auto) 0.2 (0.0-1.5) % Neut # (Auto) 7.6 H (1.4-5.7) K/uL Lymph # (Auto) 2.2 (0.6-2.4) K/uL [place] # (Auto) 0.9 H (0.0-0.8) K/uL Eos # (Auto) 0.2 (0.0-0.7) K/uL Baso # (Auto) 0.0 (0.0-0.1) K/uL Nucleated RBC % 0.0 /100WBC Nucleated RBCs # 0 K/uL Sodium 138 (136-145) mmol/L Potassium 4.4 (3.5-5.1) mmol/L Chloride 103 (98-107) mmol/L Carbon Dioxide 26.2 (21.0-32.0) mmol/L BUN 12 (7.0-18.0) mg/dL Creatinine 0.9 (0.6-1.0) mg/dL Est Cr Clr Drug Dosing 75.95 mL/min Estimated GFR (MDRD) > 60.0 ml/min Glucose 85 (74-106) mg/dL POC Glucose (70-99) mg/dL Calcium 7.9 L (8.5-10.1) mg/dL Total Bilirubin 0.3 (0.2-1.0) mg/dL AST 17 (15-37) IU/L ALT 18 (14-63) IU/L Alkaline Phosphatase 99 (46-116) U/L Total Protein 5.8 L (6.4-8.2) g/dL Albumin 2.3 L (3.4-5.0) g/dL Globulin 3.5 (2.6-4.0) g/dL Albumin/Globulin Ratio 0.7 L (0.9-1.6) Lipase 33 L (73-393) U/L SARS-CoV-2 RNA (JIM) NEGATIVE (NEGATIVE) 03/26/21 Range/Units 06:53 WBC (4.0-11.0) K/uL RBC (4.30-5.90) M/uL Hgb (12.0-16.0) g/dL Hct (36.0-46.0) % MCV (80.0-98.0) fL MCH (27.0-32.0) pg MCHC (31.0-37.0) g/dL RDW Std Deviation (28.0-62.0) fl RDW Coeff of [place]anna (11.0-15.0) % Plt Count (150-400) K/uL MPV (7.40-12.00) fL Neut % (Auto) (48.0-80.0) % Lymph % (Auto) (16.0-40.0) % [place] % (Auto) (0.0-15.0) % Eos % (Auto) (0.0-7.0) % Baso % (Auto) (0.0-1.5) % Neut # (Auto) (1.4-5.7) K/uL Lymph # (Auto) (0.6-2.4) K/uL [place] # (Auto) (0.0-0.8) K/uL Eos # (Auto) (0.0-0.7) K/uL Baso # (Auto) (0.0-0.1) K/uL Nucleated RBC % /100WBC Nucleated RBCs # K/uL Sodium (136-145) mmol/L Potassium (3.5-5.1) mmol/L Chloride (98-107) mmol/L Carbon Dioxide (21.0-32.0) mmol/L BUN (7.0-18.0) mg/dL Creatinine (0.6-1.0) mg/dL Est Cr Clr Drug Dosing mL/min Estimated GFR (MDRD) ml/min Glucose (74-106) mg/dL POC Glucose 88 (70-99) mg/dL Calcium (8.5-10.1) mg/dL Total Bilirubin (0.2-1.0) mg/dL AST (15-37) IU/L ALT (14-63) IU/L Alkaline Phosphatase (46-116) U/L Total Protein (6.4-8.2) g/dL Albumin (3.4-5.0) g/dL Globulin (2.6-4.0) g/dL Albumin/Globulin Ratio (0.9-1.6) Lipase (73-393) U/L SARS-CoV-2 RNA (JIM) (NEGATIVE) Result Diagrams: 03/25/21 21:51 03/25/21 21:51 Sepsis Event Note - Evaluation Sepsis Screening Result: No Definite Risk - Focused Exam Vital Signs: Vital Signs Temp Pulse Resp BP Pulse Ox Pulse Ox 03/26/21 09:10 98.3 F 74 16 115/84 93 L 03/26/21 05:50 92 L 03/26/21 04:50 97.4 F 86 16 122/67 92 L 03/26/21 04:05 84 15 112/59 L 95 03/26/21 00:20 77 16 103/52 L 93 L Problem List Initiated/Reviewed/Updated: Yes Orders Last 24hrs: Active Orders 24 hr Category Date Time Status Patient Status [ADT] Routine ADT 03/26/21 01:50 Active Accu Check [Blood Glucose Check, Bedside] [RC] Q6H Care 03/26/21 06:00 Active Ambulate [RC] ASDIRECTED Care 03/26/21 05:50 Active Antiembolic Devices [RC] PER UNIT ROUTINE Care 03/26/21 05:51 Active NG [Gastrointestinal Tube Mgmt] [RC] Q4H Care 03/26/21 05:51 Active Notify Provider Consults [RC] ASDIRECTED Care 03/26/21 05:56 Active Oxygen Therapy [RC] PRN Care 03/26/21 05:50 Active Vital Signs [RC] Q4H Care 03/26/21 08:00 Active Consult to Physician [CONS] Routine Cons 03/26/21 05:55 Active NPO [Nothing Per Oral Diet] [DIET] Diet 03/26/21 Breakfast Active Dextrose 50% in Water Med 03/26/21 06:35 Active 50 ml IVPUSH ASDIRECTED PRN Enoxaparin [Lovenox] Med 03/26/21 08:00 Active 40 mg SUBCUT Q24H HYDROmorphone [Dilaudid] Med 03/26/21 09:17 Active 1 mg IVPUSH Q1H PRN LORazepam [Ativan] Med 03/26/21 12:00 Active 1 mg IVPUSH Q4H PRN Lactated Ringers [Ringers, Lactated] 1,000 ml Med 03/26/21 06:00 Active IV ASDIRECTED Ondansetron [Zofran] Med 03/26/21 05:54 Active 4 mg IVPUSH Q4H PRN Pantoprazole [ProTONIX IV] 40 mg Med 03/26/21 09:00 Active Sodium Chloride 0.9% [Normal Saline] 10 ml IV DAILY Sodium Chloride 0.9% [Normal Saline] 1,000 ml Med 03/26/21 02:00 Active IV ASDIRECTED Sodium Chloride 0.9% [Normal Saline] 500 ml Med 03/25/21 21:00 Active IV STAT Sequential Compression Device [OM.PC] Routine Oth 03/26/21 05:51 Ordered Medication Orders Dextrose/Water (50% Dextrose In Water 50 Ml Syringe) 50 ml IVPUSH ASDIRECTED PRN PRN Reason: Hypoglycemia Enoxaparin Sodium (Enoxaparin 40 Mg/0.4 Ml Syringe) 40 mg SUBCUT Q24H MARISELA Last Admin: 03/26/21 09:04 Dose: 40 mg Documented by: JEROD Hydromorphone HCl (Hydromorphone 1 Mg/Ml Syringe) 1 mg IVPUSH Q1H PRN PRN Reason: Pain Last Admin: 03/26/21 10:07 Dose: 1 mg Documented by: FERNANDO Sodium Chloride (Normal Saline) 500 mls @ 999 mls/hr IV STAT MARISELA Last Admin: 03/25/21 21:40 Dose: 999 mls/hr Documented by: TYRON Sodium Chloride (Normal Saline) 1,000 mls @ 150 mls/hr IV ASDIRECTED [facility] Last Admin: 03/26/21 04:57 Dose: 150 mls/hr Documented by: ISI Pantoprazole Sodium 40 mg/ (Sodium Chloride) 10 mls @ 300 mls/hr IV DAILY [facility] Last Admin: 03/26/21 08:51 Dose: 300 mls/hr Documented by: JEROD Lactated Ringer's (Ringers, Lactated) 1,000 mls @ 125 mls/hr IV ASDIRECTED [facility] Last Admin: 03/26/21 06:14 Dose: 125 mls/hr Documented by: ISI Lorazepam (Lorazepam 2 Mg/Ml Sdv) 1 mg IVPUSH Q4H PRN PRN Reason: Anxiety Ondansetron HCl (Ondansetron 4 Mg/2 Ml Sdv) 4 mg IVPUSH Q4H PRN PRN Reason: Nausea/Vomiting Last Admin: 03/26/21 06:48 Dose: 4 mg Documented by: ISI Assessment/Plan Comment:: Pt is a 45 y/o was admitted for small bowel obstruction, patient is being treated conservatively per surgery recommendations which are much appreciated. 1. Small bowel obstruction: Afebrile, vitally stable in no acute distress. NG tube in place confirmed with abdominal x-ray, draining appropriately approximately 200 output this morning. Per surgery recommendations continue with bowel rest, fluids, NG tube in place, may use mouth swabs with ice chips, will likely benefit from water-soluble contrast. Continue with appropriate pain medication Dilaudid 1 mg every hour and 2 mg Ativan every 4 hours for anxiety since patient has a history of anxiety and having NG tube can be quite uncomfortable. Mild hypoglycemia 73 noted this morning, will give D50 as patient is n.p.o., no history of diabetes mellitus, not on insulin, however will give D5 and LR. 2. Mild anemia: 11.6 today, asymptomatic, continue to trend daily with CBC. 3. Right nonobstructing renal calculus: Incidental finding, patient denies any CVA tenderness bilaterally or any loin to groin pain. Continue to monitor, no concerns for hematuria at this time. GI prophylaxis: Pantoprazole DVT prophylaxis: Lovenox 40 subcu daily/SCDs <Lindsay Barrera - Last Filed: 03/26/21 16:13> H&P History of Present Illness - General Admit Problem/Dx: Admission Diagnosis/Problem Admission Diagnosis/Problem Small bowel obstruction Exam - Vital Signs Vital Signs: Last Vital Signs Temp 36.8 C 03/26/21 12:36 Pulse 73 03/26/21 12:36 Resp 14 03/26/21 12:36 BP 123/65 03/26/21 12:36 Pulse Ox 92 L 03/26/21 12:36 - Patient Data Lab Results Last 24 hrs: Laboratory Results - last 24 hr 03/25/21 03/25/21 03/25/21 Range/Units 21:51 21:51 21:51 WBC 10.80 (4.0-11.0) K/uL RBC 4.02 L (4.30-5.90) M/uL Hgb 11.6 L (12.0-16.0) g/dL Hct 36.1 (36.0-46.0) % MCV 89.8 (80.0-98.0) fL MCH 28.9 (27.0-32.0) pg MCHC 32.1 (31.0-37.0) g/dL RDW Std Deviation 53.6 (28.0-62.0) fl RDW Coeff of [place] 16 H (11.0-15.0) % Plt Count 476 H (150-400) K/uL MPV 9.30 (7.40-12.00) fL Neut % (Auto) 70.3 (48.0-80.0) % Lymph % (Auto) 20.0 (16.0-40.0) % [place] % (Auto) 8.1 (0.0-15.0) % Eos % (Auto) 1.4 (0.0-7.0) % Baso % (Auto) 0.2 (0.0-1.5) % Neut # (Auto) 7.6 H (1.4-5.7) K/uL Lymph # (Auto) 2.2 (0.6-2.4) K/uL [place] # (Auto) 0.9 H (0.0-0.8) K/uL Eos # (Auto) 0.2 (0.0-0.7) K/uL Baso # (Auto) 0.0 (0.0-0.1) K/uL Nucleated RBC % 0.0 /100WBC Nucleated RBCs # 0 K/uL Sodium 138 (136-145) mmol/L Potassium 4.4 (3.5-5.1) mmol/L Chloride 103 (98-107) mmol/L Carbon Dioxide 26.2 (21.0-32.0) mmol/L BUN 12 (7.0-18.0) mg/dL Creatinine 0.9 (0.6-1.0) mg/dL Est Cr Clr Drug Dosing 75.95 mL/min Estimated GFR (MDRD) > 60.0 ml/min Glucose 85 (74-106) mg/dL POC Glucose (70-99) mg/dL Calcium 7.9 L (8.5-10.1) mg/dL Phosphorus 3.8 (2.6-4.7) mg/dL Magnesium 1.9 (1.8-2.4) mg/dL Total Bilirubin 0.3 (0.2-1.0) mg/dL AST 17 (15-37) IU/L ALT 18 (14-63) IU/L Alkaline Phosphatase 99 (46-116) U/L Total Protein 5.8 L (6.4-8.2) g/dL Albumin 2.3 L (3.4-5.0) g/dL Globulin 3.5 (2.6-4.0) g/dL Albumin/Globulin Ratio 0.7 L (0.9-1.6) Lipase 33 L (73-393) U/L SARS-CoV-2 RNA (JIM) (NEGATIVE) 03/26/21 03/26/21 03/26/21 Range/Units 02:01 06:53 11:17 WBC (4.0-11.0) K/uL RBC (4.30-5.90) M/uL Hgb (12.0-16.0) g/dL Hct (36.0-46.0) % MCV (80.0-98.0) fL MCH (27.0-32.0) pg MCHC (31.0-37.0) g/dL RDW Std Deviation (28.0-62.0) fl RDW Coeff of [place] (11.0-15.0) % Plt Count (150-400) K/uL MPV (7.40-12.00) fL Neut % (Auto) (48.0-80.0) % Lymph % (Auto) (16.0-40.0) % [place] % (Auto) (0.0-15.0) % Eos % (Auto) (0.0-7.0) % Baso % (Auto) (0.0-1.5) % Neut # (Auto) (1.4-5.7) K/uL Lymph # (Auto) (0.6-2.4) K/uL [place] # (Auto) (0.0-0.8) K/uL Eos # (Auto) (0.0-0.7) K/uL Baso # (Auto) (0.0-0.1) K/uL Nucleated RBC % /100WBC Nucleated RBCs # K/uL Sodium (136-145) mmol/L Potassium (3.5-5.1) mmol/L Chloride (98-107) mmol/L Carbon Dioxide (21.0-32.0) mmol/L BUN (7.0-18.0) mg/dL Creatinine (0.6-1.0) mg/dL Est Cr Clr Drug Dosing mL/min Estimated GFR (MDRD) ml/min Glucose (74-106) mg/dL POC Glucose 88 73 (70-99) mg/dL Calcium (8.5-10.1) mg/dL Phosphorus (2.6-4.7) mg/dL Magnesium (1.8-2.4) mg/dL Total Bilirubin (0.2-1.0) mg/dL AST (15-37) IU/L ALT (14-63) IU/L Alkaline Phosphatase (46-116) U/L Total Protein (6.4-8.2) g/dL Albumin (3.4-5.0) g/dL Globulin (2.6-4.0) g/dL Albumin/Globulin Ratio (0.9-1.6) Lipase (73-393) U/L SARS-CoV-2 RNA (JIM) NEGATIVE (NEGATIVE) Result Diagrams: 03/25/21 21:51 03/25/21 21:51 Sepsis Event Note - Focused Exam Vital Signs: Vital Signs Temp Pulse Resp BP Pulse Ox Pulse Ox 03/26/21 12:36 36.8 C 73 14 123/65 92 L 03/26/21 09:10 36.8 C 74 16 115/84 93 L 03/26/21 05:50 92 L 03/26/21 04:50 36.3 C 86 16 122/67 92 L Orders Last 24hrs: Active Orders 24 hr Category Date Time Status Patient Status [ADT] Routine ADT 03/26/21 01:50 Active Accu Check [Blood Glucose Check, Bedside] [RC] Q6H Care 03/26/21 06:00 Active Ambulate [RC] ASDIRECTED Care 03/26/21 05:50 Active Antiembolic Devices [RC] PER UNIT ROUTINE Care 03/26/21 05:51 Active NG [Gastrointestinal Tube Mgmt] [RC] Q4H Care 03/26/21 05:51 Active Notify Provider Consults [RC] ASDIRECTED Care 03/26/21 05:56 Active Oxygen Therapy [RC] PRN Care 03/26/21 05:50 Active Vital Signs [RC] Q4H Care 03/26/21 08:00 Active Consult to Physician [CONS] Routine Cons 03/26/21 05:55 Active NPO [Nothing Per Oral Diet] [DIET] Diet 03/26/21 Breakfast Active Benzocaine [Hurricaine One 20%] Med 03/26/21 10:49 Active 1 each MUCMEM Q6H PRN Dextrose 5%-Lactated Ringers 1,000 ml Med 03/26/21 11:45 Active IV ASDIRECTED Dextrose 50% in Water Med 03/26/21 06:35 Active 50 ml IVPUSH ASDIRECTED PRN Enoxaparin [Lovenox] Med 03/26/21 08:00 Active 40 mg SUBCUT Q24H HYDROmorphone [Dilaudid] Med 03/26/21 09:17 Active 1 mg IVPUSH Q1H PRN LORazepam [Ativan] Med 03/26/21 12:00 Active 1 mg IVPUSH Q4H PRN Ondansetron [Zofran] Med 03/26/21 05:54 Active 4 mg IVPUSH Q4H PRN Pantoprazole [ProTONIX IV] 40 mg Med 03/26/21 09:00 Active Sodium Chloride 0.9% [Normal Saline] 10 ml IV DAILY Sodium Chloride 0.9% [Normal Saline] 500 ml Med 03/25/21 21:00 Active IV STAT phenoL [Chloraseptic Throat [place]] Med 03/26/21 10:49 Active 1 ml MUCMEM Q2H PRN Sequential Compression Device [OM.PC] Routine Oth 03/26/21 05:51 Ordered Code Status [Resuscitation Status] Routine Resus Stat 03/26/21 14:26 Ordered Medication Orders Benzocaine (Benzocaine 20% Topical [place] Ud) 1 each MUCMEM Q6H PRN PRN Reason: Sore Throat Last Admin: 03/26/21 12:44 Dose: 1 each Documented by: JEROD Dextrose/Water (50% Dextrose In Water 50 Ml Syringe) 50 ml IVPUSH ASDIRECTED PRN PRN Reason: Hypoglycemia Last Admin: 03/26/21 11:36 Dose: 50 ml Documented by: FERNANDO Enoxaparin Sodium (Enoxaparin 40 Mg/0.4 Ml Syringe) 40 mg SUBCUT Q24H [facility] Last Admin: 03/26/21 09:04 Dose: 40 mg Documented by: JEROD Hydromorphone HCl (Hydromorphone 1 Mg/Ml Syringe) 1 mg IVPUSH Q1H PRN PRN Reason: Pain Last Admin: 03/26/21 15:25 Dose: 1 mg Documented by: Admin: 03/26/21 14:12 Dose: 1 mg Documented by: Admin: 03/26/21 12:37 Dose: 1 mg Documented by: Admin: 03/26/21 11:20 Dose: 1 mg Documented by: Admin: 03/26/21 10:07 Dose: 1 mg Documented by: FERNANDO Sodium Chloride (Normal Saline) 500 mls @ 999 mls/hr IV STAT [facility] Last Admin: 03/25/21 21:40 Dose: 999 mls/hr Documented by: TYRON Pantoprazole Sodium 40 mg/ (Sodium Chloride) 10 mls @ 300 mls/hr IV DAILY [facility] Last Admin: 03/26/21 08:51 Dose: 300 mls/hr Documented by: JEROD Dextrose/Lactated Ringer's (Dextrose 5%-Lactated Ringers) 1,000 mls @ 125 mls/hr IV ASDIRECTED [facility] Last Admin: 03/26/21 12:22 Dose: 125 mls/hr Documented by: JEROD Lorazepam (Lorazepam 2 Mg/Ml Sdv) 1 mg IVPUSH Q4H PRN PRN Reason: Anxiety Last Admin: 03/26/21 13:05 Dose: 1 mg Documented by: FERNANDO Ondansetron HCl (Ondansetron 4 Mg/2 Ml Sdv) 4 mg IVPUSH Q4H PRN PRN Reason: Nausea/Vomiting Last Admin: 03/26/21 06:48 Dose: 4 mg Documented by: ISI Phenol/Menthol (Phenol 1.4% Oral [place] 177 Ml Bottle) 1 ml MUCMEM Q2H PRN PRN Reason: Sore Throat Last Admin: 03/26/21 11:18 Dose: 1 spray Documented by: FERNANDO Assessment/Plan Comment:: I performed a history and physical exam of the patient and discussed management with resident. I have reviewed the residents note and agree with documented findings and plan unless otherwise specified in my note.
--- NOTE | 2021-03-26 10:20 | PCM.CONS ---
H&P History of Present Illness - General Date of Service: 03/26/21 Admit Problem/Dx: Admission Diagnosis/Problem Admission Diagnosis/Problem Small bowel obstruction Source of Information: Patient History Limitations: Reports: Other (anxious ) - History of Present Illness Initial Comments - Free Text/Narative: Patient is a 45 year old female with a past medical history of Grave's disease s/p total thyroidectomy, high output HF from uncontrolled hyperthyroidism, anxiety, depression, and chronic pain/fibromyalgia who presented to the ER last night with abdominal pain, nausea and vomiting. Her surgical history is significant for 2 c-sections, hysterectomy and laparoscopic cholecystectomy. She was admitted to an OSH last month (03/03) with a SBO. Her CT scan at that time s howed "moderate small bowel dilation filled with fluid, air and air-fluid levels. The distal small bowel at the distal ileum was normal in caliber. Overall pattern suggests moderate SBO. Transition point is likely evident at the mid pelvis without evidence of focal mass or lesion. No signs of mesenteric edema, small bowel wall thickening, or free fluid. Diffuse fluid within the lumen of the ascending and transverse colon without evidence of wall thickening or dilation. "She was admitted and treated conservatively. She was discharged home, and presented the next day to her PCP. She had worsening distension and a repeat CT scan was performed on 03/07. This showed the following; "high grade distal small bowel obstruction with a transition point in the distal ileum within the pelvis. The distension of the small bowel proximal to the obstruction is mildly larger than on the CT study from 03/03. There is inflammation of the distal of the distal ileum distal to the transition point consistent with ileitis." She had an NG placed. After day #2 they clamped the tube and tried some clear liquids. Eventually on 03/11, they were able to remove her NG. They stated that she tolerated a "full diet" for 24 hours and was having BMs. The patient states that these were watery and not regular. She was discharged with instructions to avoid heavy or high residue meals. She was told to follow up with a surgeon in [place]. The patient followed up with Dr. Chadd Nagy. She was still having generalized abdominal pain and distension. He recommended a small bowel follow through given her history of ileitis, history of autoimmune disease, and possibility of inflammatory bowel disease. She was scheduled for this next week. However her pain and distension became worse so she presented to the ER last evening. She has never had a colonoscopy. She has had chronic issues with constipation which was felt to be due to her medications. She had a CT scan 05/10/2020 for abdominal pain and GI bleed at [facility]. This showed "possible mild colitis at the hepatic flexure. Mesenteric lymphadenopathy in the RUQ. No evidence of a GI bleed. Diffuse wall thickening of the stomach which may represent gastritis or peristalsis, diverticulosis, small non-obstructing renal stone, mild nonspecific inflammation adjacent to the left adrenal gland." She states that she had a BM yesterday which was mucousy, watery and had bright red blood in it. She has never seen a GI physician. She states that she hasn't had a regular BM in a month. Her vitals were normal. WBC was normal. Hgb was 11.6. Plts were normal. CMP was unremarkable. CT of the abdomen pelvis showed the following; "Several fluid distended loops of small bowel whereas some of the small bowel loops are relatively collapsed consistent with a SBO. Some of the dilated small bowel has feculent contents. There is stool throughout the colon. No enlarged lymph nodes." She had an NG placed and in the past 4-6 hours she has had a small amount of light green output. She was in tears this morning due to frustration and abdominal pain. She was upset that this keeps happening and demanding something be done. abd Pain Score (Numeric/FACES): 10 - Related Data Allergies/Adverse Reactions: Allergies Allergy/AdvReac Type Severity Reaction Status Date / Time metoclopramide [From Reglan] Allergy Rash Verified 03/26/21 05:01 Home Medications: Home Meds Acetaminophen/HYDROcodone [Cl[place] 325-5 MG] 1 tab PO Q6H PRN 10/06/19 [History] Furosemide [Lasix] 40 mg PO DAILY 10/06/19 [History] Sertraline [Zoloft] 50 mg PO DAILY 10/06/19 [History] cloNIDine [Catapres-TTS 1] 2 mg PO BID 10/06/19 [History] LORazepam [Lorazepam] 1 mg PO TID PRN 03/16/21 [History] Levothyroxine 100 mcg PO DAILY 03/16/21 [History] Zolpidem [Ambien] 10 mg PO BEDTIME 03/16/21 [History] Amitriptyline [Elavil] 20 mg PO BEDTIME 03/26/21 [History] Gabapentin [Neurontin] 600 mg PO TID 03/26/21 [History] cloNIDine [Catapres] 2 mg PO BID 03/26/21 [History] clonazePAM [Clonazepam] 2 mg PO BID 03/26/21 [History] Past Medical History HEENT History: Reports: Other (See Below) Other HEENT History: wears glasses Cardiovascular History: Reports: Blood Clots/VTE/DVT, Heart Failure, Hypertension Other Cardiovascular History: hx DVT ro leg after c/section 15 yrs ago Respiratory History: Reports: SOB Gastrointestinal History: Reports: Bowel Obstruction, GERD Genitourinary History: Reports: UTI, Recurrent 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 History: Reports: Musculoskeletal History: Reports: Arthritis, Back Pain, Chronic, Fracture, Fibromyalgia, Neck Pain, Chronic, SLE Other Musculoskeletal History: hx fx collarbone Neurological History: Reports: Head Trauma, Migraines Psychiatric History: Reports: Anxiety, Depression, PTSD Endocrine/Metabolic History: Reports: Hyperthyroidism, Hypothyroidism Hematologic History: Reports: None Immunologic History: Reports: SLE, Other (See Below) Other Immunologic History: grave's disease Oncologic (Cancer) History: Reports: None Dermatologic History: Reports: None - Infectious Disease History Infectious Disease History: Reports: None - Past Surgical History Head Surgeries/Procedures: Reports: None HEENT Surgical History: Reports: Tonsillectomy, Other (See Below) Other HEENT Surgeries/Procedures: throat surgery - removal of vocal cord polyp Cardiovascular Surgical History: Reports: None Respiratory Surgical History: Reports: None GI Surgical History: Reports: Cholecystectomy Female Surgical History: Reports: Section, Hysterectomy Endocrine Surgical History: Reports: None Neurological Surgical History: Reports: C-Spine, Lumbar Spine Other Neurological Surgeries/Procedures: back and neck surgery Musculoskeletal Surgical History: Reports: Carpal Tunnel, Shoulder Surgery, Other (See Below) Other Musculoskeletal Surgeries/Procedures:: shoulder surgery, back surgery and neck surgery Oncologic Surgical History: Reports: None Dermatological Surgical History: Reports: None Social & Family History - Family History Family Medical History: No Pertinent Family History - Tobacco Use Tobacco Use Status *Q: Former Tobacco User Years of Tobacco use: 30 Used Tobacco, but Quit: Yes Month/Year Tobacco Last Used: April 2020 Second Hand Smoke Exposure: No - Caffeine Use Caffeine Use: Reports: Soda - Recreational Drug Use Recreational Drug Use: No H&P Review of Systems - Review of Systems: Review Of Systems: Comprehensive ROS is negative, except as noted in HPI. Exam - Exam Exam: See Below - Vital Signs Vital Signs: Last Vital Signs Temp 36.8 C 03/26/21 09:10 Pulse 74 03/26/21 09:10 Resp 16 03/26/21 09:10 BP 115/84 03/26/21 09:10 Pulse Ox 93 L 03/26/21 09:10 Weight: 80.24 kg - Exam Quality Assessment: Supplemental Oxygen General: Alert, Oriented, Moderate Distress HEENT: Conjunctiva Clear, Mucosa Moist & Novelty, Posterior Pharynx Clear Lungs: Clear to Auscultation, Normal Respiratory Effort Cardiovascular: Regular Rate, Regular Rhythm GI/Abdominal Exam: Soft, Distended, Tender (subjective tenderness throught abdomen with deep palpation ), Abnormal Bowel Sounds (minimal bowel sounds). No: Guarding, Rigid, Rebound Back Exam: Normal Inspection Extremities: Normal Inspection - Patient Data Lab Results Last 24 hrs: Laboratory Results - last 24 hr 03/25/21 03/25/21 03/26/21 Range/Units 21:51 21:51 02:01 WBC 10.80 (4.0-11.0) K/uL RBC 4.02 L (4.30-5.90) M/uL Hgb 11.6 L (12.0-16.0) g/dL Hct 36.1 (36.0-46.0) % MCV 89.8 (80.0-98.0) fL MCH 28.9 (27.0-32.0) pg MCHC 32.1 (31.0-37.0) g/dL RDW Std Deviation 53.6 (28.0-62.0) fl RDW Coeff of Dayanna 16 H (11.0-15.0) % Plt Count 476 H (150-400) K/uL MPV 9.30 (7.40-12.00) fL Neut % (Auto) 70.3 (48.0-80.0) % Lymph % (Auto) 20.0 (16.0-40.0) % [place] % (Auto) 8.1 (0.0-15.0) % Eos % (Auto) 1.4 (0.0-7.0) % Baso % (Auto) 0.2 (0.0-1.5) % Neut # (Auto) 7.6 H (1.4-5.7) K/uL Lymph # (Auto) 2.2 (0.6-2.4) K/uL [place] # (Auto) 0.9 H (0.0-0.8) K/uL Eos # (Auto) 0.2 (0.0-0.7) K/uL Baso # (Auto) 0.0 (0.0-0.1) K/uL Nucleated RBC % 0.0 /100WBC Nucleated RBCs # 0 K/uL Sodium 138 (136-145) mmol/L Potassium 4.4 (3.5-5.1) mmol/L Chloride 103 (98-107) mmol/L Carbon Dioxide 26.2 (21.0-32.0) mmol/L BUN 12 (7.0-18.0) mg/dL Creatinine 0.9 (0.6-1.0) mg/dL Est Cr Clr Drug Dosing 75.95 mL/min Estimated GFR (MDRD) > 60.0 ml/min Glucose 85 (74-106) mg/dL POC Glucose (70-99) mg/dL Calcium 7.9 L (8.5-10.1) mg/dL Total Bilirubin 0.3 (0.2-1.0) mg/dL AST 17 (15-37) IU/L ALT 18 (14-63) IU/L Alkaline Phosphatase 99 (46-116) U/L Total Protein 5.8 L (6.4-8.2) g/dL Albumin 2.3 L (3.4-5.0) g/dL Globulin 3.5 (2.6-4.0) g/dL Albumin/Globulin Ratio 0.7 L (0.9-1.6) Lipase 33 L (73-393) U/L SARS-CoV-2 RNA (JIM) NEGATIVE (NEGATIVE) 03/26/21 Range/Units 06:53 WBC (4.0-11.0) K/uL RBC (4.30-5.90) M/uL Hgb (12.0-16.0) g/dL Hct (36.0-46.0) % MCV (80.0-98.0) fL MCH (27.0-32.0) pg MCHC (31.0-37.0) g/dL RDW Std Deviation (28.0-62.0) fl RDW Coeff of Dayanna (11.0-15.0) % Plt Count (150-400) K/uL MPV (7.40-12.00) fL Neut % (Auto) (48.0-80.0) % Lymph % (Auto) (16.0-40.0) % [place] % (Auto) (0.0-15.0) % Eos % (Auto) (0.0-7.0) % Baso % (Auto) (0.0-1.5) % Neut # (Auto) (1.4-5.7) K/uL Lymph # (Auto) (0.6-2.4) K/uL [place] # (Auto) (0.0-0.8) K/uL Eos # (Auto) (0.0-0.7) K/uL Baso # (Auto) (0.0-0.1) K/uL Nucleated RBC % /100WBC Nucleated RBCs # K/uL Sodium (136-145) mmol/L Potassium (3.5-5.1) mmol/L Chloride (98-107) mmol/L Carbon Dioxide (21.0-32.0) mmol/L BUN (7.0-18.0) mg/dL Creatinine (0.6-1.0) mg/dL Est Cr Clr Drug Dosing mL/min Estimated GFR (MDRD) ml/min Glucose (74-106) mg/dL POC Glucose 88 (70-99) mg/dL Calcium (8.5-10.1) mg/dL Total Bilirubin (0.2-1.0) mg/dL AST (15-37) IU/L ALT (14-63) IU/L Alkaline Phosphatase (46-116) U/L Total Protein (6.4-8.2) g/dL Albumin (3.4-5.0) g/dL Globulin (2.6-4.0) g/dL Albumin/Globulin Ratio (0.9-1.6) Lipase (73-393) U/L SARS-CoV-2 RNA (JIM) (NEGATIVE) Result Diagrams: 03/25/21:51 03/25/21 21:51 Sepsis Event Note - Evaluation Sepsis Screening Result: No Definite Risk - Focused Exam Vital Signs: Vital Signs Temp Pulse Resp BP Pulse Ox Pulse Ox 03/26/21 09:10 36.8 C 74 16 115/84 93 L 03/26/21 05:50 92 L 03/26/21 04:50 36.3 C 86 16 122/67 92 L 03/26/21 04:05 84 15 112/59 L 95 03/26/21 00:20 77 16 103/52 L 93 L Consult PN Assessment/Plan Procedures: Procedures AIRWAY INHALATION TREATMENT (10/06/19) ASSAY OF LACTIC ACID (10/06/19) ASSAY OF LIPASE (10/06/19) ASSAY OF MAGNESIUM (05/20/20) ASSAY OF NATRIURETIC PEPTIDE (10/06/19) ASSAY OF TROPONIN QUANT (05/20/20) BLOOD TYPING SEROLOGIC ABO (05/20/20) BLOOD TYPING SEROLOGIC RH(D) (05/20/20) KRISHAN DNA DIR PROBE (11/22/20) CARPAL TUNNEL SURGERY (03/07/18) COMPLETE CBC W/AUTO DIFF WBC (03/16/21) COMPREHEN METABOLIC PANEL (03/16/21) CT ABD & PELV W/CONTRAST (03/16/21) CT ANGIOGRAPHY CHEST (10/06/19) CT CHEST SPINE W/O DYE (02/06/16) CT HEAD/BRAIN W/O DYE (05/20/20) CT LUMBAR SPINE W/O DYE (02/06/16) CT NECK SPINE W/O DYE (05/20/20) DRUG TEST PRSMV CHEM ANLYZR (05/20/20) DRUG TEST PRSMV DIR OPT OBS (05/20/20) ELECTROCARDIOGRAM TRACING (05/20/20) EMERGENCY DEPT VISIT (03/16/21) EMERGENCY DEPT VISIT (05/27/20) EMERGENCY DEPT VISIT (05/20/20) EMERGENCY DEPT VISIT (07/31/18) EMERGENCY DEPT VISIT (07/25/14) EMERGENCY DEPT VISIT (07/25/14) JUAN DAVID HAILE DNA DIR PROBE (11/22/20) IMMUNIZATION ADMIN (05/20/20) MRI CHEST SPINE W/O DYE (01/08/18) MRI LUMBAR SPINE W/O DYE (01/08/18) PROTHROMBIN TIME (05/20/20) ROUTINE VENIPUNCTURE (03/16/21) RPR S/N/AX/GEN/TRNK 2.5CM/< (05/20/20) TDAP VACCINE 7 YRS/> IM (05/20/20) THER/PROPH/DIAG IV INF INIT (10/06/19) THROMBOPLASTIN TIME PARTIAL (05/20/20) TRICHOMONAS VAGIN DIR PROBE (11/22/20) TX/PRO/DX INJ NEW DRUG ADDON (10/06/19) URINALYSIS AUTO W/SCOPE (07/31/18) URINE TEST (05/20/20) US EXAM OF HEAD AND NECK (02/26/20) X-RAY EXAM CHEST 1 VIEW (05/20/20) (1) SBO (small bowel obstruction) SNOMED Code(s): 517408310 Code(s): K56.609 - UNSP INTESTNL OBST, UNSP TO PARTIAL VERSUS COMPLETE OBST Current Visit: Yes Problem List Initiated/Reviewed/Updated: Yes My Orders Last 24 Hours: My Active Orders 03/26/21 09:17 HYDROmorphone [Dilaudid] 1 mg IVPUSH Q1H PRN Plan: I visited with Dr. Nagy and reviewed her rheumatology, endocrine, OSH discharge summary and cardiology notes. I reviewed her past [address] scans of the abdomen and pelvis. It is unclear if this pSBO is due to adhesions or inflammation. In order to assess this, I ordered a small bowel series with water soluble contrast. Her first xray ten minutes after administration shows contrast in the second portion of the duodenum. Her NG will be clamped for 30 minutes then hooked back to suction. We will get another upright Xray at 6pm tonight to see if the contrast has moved any further. She will have an abdominal xray again in the am to see the progression. This will determine the next steps in her treatment. Ok to give ice chips and swabs for comfort. Increased her pain medication to 1mg IV dialudid q1hr prn pain and medicine team gave ativan prn. Both have helped her anxiety and pain control.
[2021-03-26] MEDS ORDERED: Benzocaine 20% Topical Spray UD MUCMEM PRN (10:45)
--- NOTE | 2021-03-26 11:17 | CR ---
HISTORY: Gastrografin administration via NG tube. Partial small bowel obstruction. COMPARISON: 03/26/2021. CT of the abdomen and pelvis, 03/25/2021. TECHNIQUE: Single abdominal radiograph. FINDINGS: There is contrast present within the stomach. The contrast appears faintly visualized, and extends into the proximal duodenum. If this is a small-bowel follow-through, I recommend additional contrast administration, with less dilution. Partially visualized posterior spinal instrumentation in the lumbar spine. IMPRESSION: Positive enteric contrast present within the stomach and proximal duodenum. Dictated by Karthik Guallpa MD @ 03/26/2021 11:15:[address] Karthik Guallpa @ Mar 26 2021 11:15AM
[2021-03-26] MEDS: Phenol 1.4% Oral Spray 177 ML Bottle MUCMEM PRN ×2 (11:18→16:32)
[2021-03-26] MEDS: 50% Dextrose in Water 50 ML Syringe IVPUSH PRN ×3 (11:36→22:17)
[2021-03-26] MEDS: Dextrose 5%-Lactated Ringers 1,000 ML IV SCH ×2 (12:22→22:21)
[2021-03-26] MEDS: Benzocaine 20% Topical Spray UD MUCMEM PRN (12:44)
[2021-03-26] MEDS: LORazepam 2 MG/ML SDV IVPUSH PRN ×3 (13:05→22:04)
[2021-03-26] MEDS ORDERED: Lactated Ringers 500 ML IV SCH (17:31)
--- NOTE | 2021-03-26 18:29 | CR ---
Indication: Gastrografin follow-up. Technique: AP upright view of the abdomen. Comparison: Study from earlier today. The current study is dated 1756 hours, Findings: NG tube identified with the tip overlying the body of the stomach. No definite contrast identified. The feeding tube is not included on the study. Please note, only the upper abdomen was included on the study. Impression: No contrast identified on the limited study of the abdomen Dictated by Terri Blank MD @ 03/26/2021 6:27:[address] Terri Blank @ Mar 26 2021 6:27PM
--- NOTE | 2021-03-26 19:45 | CR ---
INDICATION: Small-bowel obstruction. COMPARISON: Abdominal x-ray dated 26 March 2021 at 1756 hours. FINDINGS: A single portable view the abdomen shows an enteric tube in place with the distal tip extending to the antrum of the stomach. Contrast in the stomach and duodenum. Dilated loops of small bowel in the upper abdomen. Moderate amount of stool throughout the colon. No evidence of free intraperitoneal air. Stabilization hardware in the lumbar spine. IMPRESSION: 1. Contrast in the stomach and duodenum. 2. Dilated loops of small bowel in the upper abdomen representing an ileus versus small bowel obstruction. Dictated by Curtis Salazar MD @ 03/26/2021 7:43:[address] Curtis Salazar @ Mar 26 2021 7:43PM
[2021-03-27] MEDS: HYDROmorphone 1 MG/ML Syringe IVPUSH PRN ×9 (01:00→23:29)
[2021-03-27] MEDS: 50% Dextrose in Water 50 ML Syringe IVPUSH PRN ×2 (04:32→08:39)
[2021-03-27] MEDS: Ondansetron 4 MG/2 ML SDV IVPUSH PRN ×4 (04:48→23:35)
[2021-03-27] MEDS: Dextrose 5%-Lactated Ringers 1,000 ML IV SCH (06:38)
[2021-03-27 07:13] LABS: BLOOD UREA NITROGEN,BUN 11 mg/dL (7.0-18.0); CARBON DIOXIDE,CO2 27.3 mmol/L (21.0-32.0); CHLORIDE,CL 102 mmol/L (98-107); GLUCOSE RANDOM 85 mg/dL (74-106); POTASSIUM,K 4.4 mmol/L (3.5-5.1); SODIUM,NA 138 mmol/L (136-145)
--- NOTE | 2021-03-27 07:37 | CR ---
Indication: Tube placement. Technique: Abdomen 1 view. Comparison: 11/26/2020. Impression: NG tube is in satisfactory position with the tip in the distal stomach. No acute abnormalities. Dictated by Dylan Gale MD @ 03/27/2021 7:36:[address] Dylan Gale @ Mar 27 2021 7:36AM
[2021-03-27] MEDS: Enoxaparin 40 MG/0.4 ML Syringe SUBCUT SCH (07:59)
[2021-03-27] MEDS: Pantoprazole 40 MG in Sodium Chloride 0.9% 10 ML IV SCH (08:02)
[2021-03-27] MEDS: LORazepam 2 MG/ML SDV IVPUSH PRN ×3 (08:50→20:17)
--- NOTE | 2021-03-27 09:08 | CR ---
Indication: Small-bowel obstruction Technique: Abdomen 1 view Comparison: March 26, 2021 Findings/Impression: Bowel: Oral contrast from a prior exam has progressed into the ascending and transverse colon. Bowel pattern appears within normal limits. No yosvany obstructive changes. NG tube is in satisfactory position. Soft tissues: No sign of free air. No sign of soft tissue mass. No suspicious calcifications. Bones: Unremarkable for age. Dictated by Dylan Gale MD @ 03/27/2021 9:05:[address] Dylan Gale @ Mar 27 2021 9:05AM
[2021-03-27] MEDS ORDERED: Magnesium Sulfate/Water 2 GM in Premix Bag 1 BAG IV ONE (09:46)
--- NOTE | 2021-03-27 09:46 | PCM.CONSN ---
- General Info Date of Service: 03/27/21 Subjective Update: No gas, no BM. Complaining of abdominal cramping and bloating. NG with 500ml of bilious output overnight. - Review of Systems General: Reports: Fatigue HEENT: Reports: No Symptoms Pulmonary: Reports: No Symptoms Cardiovascular: Reports: No Symptoms Gastrointestinal: Reports: Abdominal Pain - Patient Data Vitals - Most Recent: Last Vital Signs Temp 36.8 C 03/27/21 08:08 Pulse 101 H 03/27/21 08:08 Resp 18 03/27/21 08:08 BP 141/77 H 03/27/21 08:08 Pulse Ox 91 L 03/27/21 08:08 Weight - Most Recent: 80.938 kg I&O - Last 24 Hours: Intake & Output 03/26/21 03/27/21 03/27/21 22:59 06:59 14:59 Intake Total 1544 1053 Output Total 600 1150 Balance 944 -97 Lab Results Last 24 Hours: Laboratory Results - last 24 hr 03/25/21 03/26/21 03/26/21 Range/Units 21:51 11:17 17:19 WBC (4.0-11.0) K/uL RBC (4.30-5.90) M/uL Hgb (12.0-16.0) g/dL Hct (36.0-46.0) % MCV (80.0-98.0) fL MCH (27.0-32.0) pg MCHC (31.0-37.0) g/dL RDW Std Deviation (28.0-62.0) fl RDW Coeff of [place]anna (11.0-15.0) % Plt Count (150-400) K/uL MPV (7.40-12.00) fL Neut % (Auto) (48.0-80.0) % Lymph % (Auto) (16.0-40.0) % [place] % (Auto) (0.0-15.0) % Eos % (Auto) (0.0-7.0) % Baso % (Auto) (0.0-1.5) % Neut # (Auto) (1.4-5.7) K/uL Lymph # (Auto) (0.6-2.4) K/uL [place] # (Auto) (0.0-0.8) K/uL Eos # (Auto) (0.0-0.7) K/uL Baso # (Auto) (0.0-0.1) K/uL Nucleated RBC % /100WBC Nucleated RBCs # K/uL Sodium (136-145) mmol/L Potassium (3.5-5.1) mmol/L Chloride (98-107) mmol/L Carbon Dioxide (21.0-32.0) mmol/L BUN (7.0-18.0) mg/dL Creatinine (0.6-1.0) mg/dL Est Cr Clr Drug Dosing mL/min Estimated GFR (MDRD) ml/min Glucose (74-106) mg/dL POC Glucose 73 71 (70-99) mg/dL Calcium (8.5-10.1) mg/dL Phosphorus 3.8 (2.6-4.7) mg/dL Magnesium 1.9 (1.8-2.4) mg/dL Total Bilirubin (0.2-1.0) mg/dL AST (15-37) IU/L ALT (14-63) IU/L Alkaline Phosphatase (46-116) U/L Total Protein (6.4-8.2) g/dL Albumin (3.4-5.0) g/dL Globulin (2.6-4.0) g/dL Albumin/Globulin Ratio (0.9-1.6) 03/26/21 03/27/21 03/27/21 Range/Units 22:02 04:21 06:40 WBC 8.71 (4.0-11.0) K/uL RBC 4.29 L (4.30-5.90) M/uL Hgb 12.4 (12.0-16.0) g/dL Hct 38.5 (36.0-46.0) % MCV 89.7 (80.0-98.0) fL MCH 28.9 (27.0-32.0) pg MCHC 32.2 (31.0-37.0) g/dL RDW Std Deviation 53.2 (28.0-62.0) fl RDW Coeff of Dayanna 16 H (11.0-15.0) % Plt Count 336 (150-400) K/uL MPV 9.80 (7.40-12.00) fL Neut % (Auto) 74.1 (48.0-80.0) % Lymph % (Auto) 11.7 L (16.0-40.0) % [place] % (Auto) 12.1 (0.0-15.0) % Eos % (Auto) 2.0 (0.0-7.0) % Baso % (Auto) 0.1 (0.0-1.5) % Neut # (Auto) 6.5 H (1.4-5.7) K/uL Lymph # (Auto) 1.0 (0.6-2.4) K/uL Greer # (Auto) 1.1 H (0.0-0.8) K/uL Eos # (Auto) 0.2 (0.0-0.7) K/uL Baso # (Auto) 0.0 (0.0-0.1) K/uL Nucleated RBC % 0.0 /100WBC Nucleated RBCs # 0 K/uL Sodium (136-145) mmol/L Potassium (3.5-5.1) mmol/L Chloride (98-107) mmol/L Carbon Dioxide (21.0-32.0) mmol/L BUN (7.0-18.0) mg/dL Creatinine (0.6-1.0) mg/dL Est Cr Clr Drug Dosing mL/min Estimated GFR (MDRD) ml/min Glucose (74-106) mg/dL POC Glucose 75 74 (70-99) mg/dL Calcium (8.5-10.1) mg/dL Phosphorus (2.6-4.7) mg/dL Magnesium (1.8-2.4) mg/dL Total Bilirubin (0.2-1.0) mg/dL AST (15-37) IU/L ALT (14-63) IU/L Alkaline Phosphatase (46-116) U/L Total Protein (6.4-8.2) g/dL Albumin (3.4-5.0) g/dL Globulin (2.6-4.0) g/dL Albumin/Globulin Ratio (0.9-1.6) 03/27/21 03/27/21 Range/Units 06:40 08:14 WBC (4.0-11.0) K/uL RBC (4.30-5.90) M/uL Hgb (12.0-16.0) g/dL Hct (36.0-46.0) % MCV (80.0-98.0) fL MCH (27.0-32.0) pg MCHC (31.0-37.0) g/dL RDW Std Deviation (28.0-62.0) fl RDW Coeff of Dayanna (11.0-15.0) % Plt Count (150-400) K/uL MPV (7.40-12.00) fL Neut % (Auto) (48.0-80.0) % Lymph % (Auto) (16.0-40.0) % [place] % (Auto) (0.0-15.0) % Eos % (Auto) (0.0-7.0) % Baso % (Auto) (0.0-1.5) % Neut # (Auto) (1.4-5.7) K/uL Lymph # (Auto) (0.6-2.4) K/uL [place] # (Auto) (0.0-0.8) K/uL Eos # (Auto) (0.0-0.7) K/uL Baso # (Auto) (0.0-0.1) K/uL Nucleated RBC % /100WBC Nucleated RBCs # K/uL Sodium 138 (136-145) mmol/L Potassium 4.4 (3.5-5.1) mmol/L Chloride 102 (98-107) mmol/L Carbon Dioxide 27.3 (21.0-32.0) mmol/L BUN 11 (7.0-18.0) mg/dL Creatinine 0.8 (0.6-1.0) mg/dL Est Cr Clr Drug Dosing 85.45 mL/min Estimated GFR (MDRD) > 60.0 ml/min Glucose 85 (74-106) mg/dL POC Glucose 79 (70-99) mg/dL Calcium 7.7 L (8.5-10.1) mg/dL Phosphorus 3.2 (2.6-4.7) mg/dL Magnesium 1.7 L (1.8-2.4) mg/dL Total Bilirubin 0.5 (0.2-1.0) mg/dL AST 17 (15-37) IU/L ALT 17 (14-63) IU/L Alkaline Phosphatase 123 H (46-116) U/L Total Protein 6.4 (6.4-8.2) g/dL Albumin 2.4 L (3.4-5.0) g/dL Globulin 4.0 (2.6-4.0) g/dL Albumin/Globulin Ratio 0.6 L (0.9-1.6) Med Orders - Current: Current Medications Benzocaine (Benzocaine 20% Topical [place] Ud) 1 each MUCMEM Q6H PRN PRN Reason: Sore Throat Last Admin: 03/26/21 12:44 Dose: 1 each Documented by: Dextrose/Water (50% Dextrose In Water 50 Ml Syringe) 50 ml IVPUSH ASDIRECTED PRN PRN Reason: Hypoglycemia Last Admin: 03/27/21 08:39 Dose: 50 ml Documented by: Enoxaparin Sodium (Enoxaparin 40 Mg/0.4 Ml Syringe) 40 mg SUBCUT Q24H MARISELA Last Admin: 03/27/21 07:59 Dose: 40 mg Documented by: Hydromorphone HCl (Hydromorphone 1 Mg/Ml Syringe) 1 mg IVPUSH Q2H PRN PRN Reason: Abdominal Pain Last Admin: 03/27/21 07:55 Dose: 1 mg Documented by: Sodium Chloride (Normal Saline) 500 mls @ 999 mls/hr IV STAT [facility] Last Admin: 03/25/21 21:40 Dose: 999 mls/hr Documented by: Pantoprazole Sodium 40 mg/ (Sodium Chloride) 10 mls @ 300 mls/hr IV DAILY [facility] Last Admin: 03/27/21 08:02 Dose: 300 mls/hr Documented by: Dextrose/Lactated Ringer's (Dextrose 5%-Lactated Ringers) 1,000 mls @ 125 mls/hr IV ASDIRECTED MARISELA Last Admin: 03/27/21 06:38 Dose: 125 mls/hr Documented by: Lorazepam (Lorazepam 2 Mg/Ml Sdv) 1 mg IVPUSH Q4H PRN PRN Reason: Anxiety Last Admin: 03/26/21 22:04 Dose: 1 mg Documented by: Ondansetron HCl (Ondansetron 4 Mg/2 Ml Sdv) 4 mg IVPUSH Q4H PRN PRN Reason: Nausea/Vomiting Last Admin: 03/27/21 08:42 Dose: 4 mg Documented by: Phenol/Menthol (Phenol 1.4% Oral [place] 177 Ml Bottle) 1 ml MUCMEM Q2H PRN PRN Reason: Sore Throat Last Admin: 03/26/21 16:32 Dose: 1 spray Documented by: Discontinued Medications Benzocaine (Benzocaine 20% Topical [place] Ud) 1 each MUCMEM ONETIME ONE Stop: 03/26/21 02:27 Last Admin: 03/26/21 02:37 Dose: 1 each Documented by: Benzocaine (Benzocaine 20% Topical [place] Ud) 1 each MUCMEM Q2HR PRN PRN Reason: Sore Throat Hydromorphone HCl (Hydromorphone 1 Mg/Ml Syringe) 1 mg IVPUSH ONETIME ONE Stop: 03/25/21 23:08 Last Admin: 03/25/21 23:14 Dose: 1 mg Documented by: Hydromorphone HCl (Hydromorphone 1 Mg/Ml Syringe) 1 mg IVPUSH ONETIME ONE Stop: 03/26/21 04:30 Last Admin: 03/26/21 04:40 Dose: 1 mg Documented by: Hydromorphone HCl (Hydromorphone 1 Mg/Ml Syringe) Confirm Administered Dose 1 mg .ROUTE .STK-MED ONE Stop: 03/26/21 08:45 Last Admin: 03/26/21 08:49 Dose: 1 mg Documented by: Hydromorphone HCl (Hydromorphone 1 Mg/Ml Syringe) 1 mg IVPUSH Q1H PRN PRN Reason: Pain Last Admin: 03/26/21 19:01 Dose: 1 mg Documented by: Sodium Chloride (Normal Saline) 1,000 mls @ 150 mls/hr IV ASDIRECTED [facility] Last Admin: 03/26/21 04:57 Dose: 150 mls/hr Documented by: Lactated Ringer's (Ringers, Lactated) 1,000 mls @ 125 mls/hr IV ASDIRECTED [facility] Last Admin: 03/26/21 06:14 Dose: 125 mls/hr Documented by: Lactated Ringer's (Ringers, Lactated) 500 mls @ 999 mls/hr IV ASDIRECTED [facility] Stop: 03/26/21 18:02 Last Admin: 03/26/21 17:42 Dose: 999 mls/hr Documented by: Iopamidol (Iopamidol 755 Mg/Ml 500 Ml Multipack Bottle) 100 ml IVPUSH ONETIME STA Stop: 03/25/21 22:14 Last Admin: 03/25/21 23:46 Dose: 100 ml Documented by: Ketorolac Tromethamine (Ketorolac 30 Mg/Ml Sdv) 30 mg IVPUSH ONETIME ONE Stop: 03/25/21 20:47 Last Admin: 03/25/21 21:36 Dose: 30 mg Documented by: Lorazepam (Lorazepam 2 Mg/Ml Sdv) 2 mg IVPUSH ONETIME ONE Stop: 03/26/21 08:50 Last Admin: 03/26/21 08:59 Dose: 2 mg Documented by: Midazolam HCl (Midazolam 1 Mg/Ml 2 Ml Sdv) 1 mg IVPUSH ONETIME ONE Stop: 03/26/21 02:11 Last Admin: 03/26/21 02:38 Dose: 1 mg Documented by: Morphine Sulfate (Morphine 2 Mg/Ml Syringe) 1 mg IVPUSH Q4H PRN PRN Reason: Pain Last Admin: 03/26/21 06:10 Dose: 1 mg Documented by: Ondansetron HCl (Ondansetron 4 Mg/2 Ml Sdv) 4 mg IVPUSH ONETIME ONE Stop: 03/25/21 20:47 Last Admin: 03/25/21 21:36 Dose: 4 mg Documented by: - Exam General: Alert, Oriented, Mild Distress GI/Abdominal Exam: Soft, No Mass, Distended, Abnormal Bowel Sounds. No: Tender Back Exam: Normal Inspection, Full Range of Motion Extremities: Normal Inspection Sepsis Event Note - Evaluation Sepsis Screening Result: No Definite Risk - Focused Exam Vital Signs: Vital Signs Temp Pulse Resp BP Pulse Ox Pulse Ox 03/27/21 08:08 36.8 C 101 H 18 141/77 H 91 L 03/27/21 05:50 90 L 03/27/21 04:00 36.8 C 99 16 136/76 90 L 03/27/21 00:00 37.1 C 90 15 139/74 93 L Consult PN Assessment/Plan Procedures: Procedures AIRWAY INHALATION TREATMENT (10/06/19) ASSAY OF LACTIC ACID (10/06/19) ASSAY OF LIPASE (10/06/19) ASSAY OF MAGNESIUM (05/20/20) ASSAY OF NATRIURETIC PEPTIDE (10/06/19) ASSAY OF TROPONIN QUANT (05/20/20) BLOOD TYPING SEROLOGIC ABO (05/20/20) BLOOD TYPING SEROLOGIC RH(D) (05/20/20) KRISHAN DNA DIR PROBE (11/22/20) CARPAL TUNNEL SURGERY (03/07/18) COMPLETE CBC W/AUTO DIFF WBC (03/16/21) COMPREHEN METABOLIC PANEL (03/16/21) CT ABD & PELV W/CONTRAST (03/16/21) CT ANGIOGRAPHY CHEST (10/06/19) CT CHEST SPINE W/O DYE (02/06/16) CT HEAD/BRAIN W/O DYE (05/20/20) CT LUMBAR SPINE W/O DYE (02/06/16) CT NECK SPINE W/O DYE (05/20/20) DRUG TEST PRSMV CHEM ANLYZR (05/20/20) DRUG TEST PRSMV DIR OPT OBS (05/20/20) ELECTROCARDIOGRAM TRACING (05/20/20) EMERGENCY DEPT VISIT (03/16/21) EMERGENCY DEPT VISIT (05/27/20) EMERGENCY DEPT VISIT (05/20/20) EMERGENCY DEPT VISIT (07/31/18) EMERGENCY DEPT VISIT (07/25/14) EMERGENCY DEPT VISIT (07/25/14) FALL VAG DNA DIR PROBE (11/22/20) IMMUNIZATION ADMIN (05/20/20) MRI CHEST SPINE W/O DYE (01/08/18) MRI LUMBAR SPINE W/O DYE (01/08/18) PROTHROMBIN TIME (05/20/20) ROUTINE VENIPUNCTURE (03/16/21) RPR S/N/AX/GEN/TRNK 2.5CM/< (05/20/20) TDAP VACCINE 7 YRS/> IM (05/20/20) THER/PROPH/DIAG IV INF INIT (10/06/19) THROMBOPLASTIN TIME PARTIAL (05/20/20) TRICHOMONAS VAGIN DIR PROBE (11/22/20) TX/PRO/DX INJ NEW DRUG ADDON (10/06/19) URINALYSIS AUTO W/SCOPE (07/31/18) URINE TEST (05/20/20) US EXAM OF HEAD AND NECK (02/26/20) X-RAY EXAM CHEST 1 VIEW (05/20/20) (1) SBO (small bowel obstruction) SNOMED Code(s): 112623161 Code(s): K56.609 - UNSP INTESTNL OBST, UNSP TO PARTIAL VERSUS COMPLETE OBS T Current Visit: Yes Problem List Initiated/Reviewed/Updated: Yes My Orders Last 24 Hours: My Active Orders 03/26/21 10:49 Benzocaine [Hurricaine One 20%] 1 each MUCMEM Q6H PRN phenoL [Chloraseptic Throat [place]] 1 ml MUCMEM Q2H PRN Plan: Water soluble contrast has made it to the patient's ascending and transverse colon. This means the patient has a partial sbo and will likely resolve with conservative management. Given the history of ileitis and no current signs of infection, I feel it is worth while to start steroids. Would keep NG in place to low intermittent suction until she starts passing gas. Will continue to follow along.
[2021-03-27] MEDS ORDERED: Ketorolac 15 MG/ML SDV IVPUSH ONE (10:30)
[2021-03-27] MEDS: methylPREDNISolone Sodium Succinate 40 MG/1 ML SDV IV SCH ×3 (10:43→21:20)
[2021-03-27] MEDS ORDERED: WATER IV ONE ×2 (11:09)
[2021-03-27] MEDS ORDERED: MAGNESIUM SULFATE IV ONE ×2 (11:09)
[2021-03-27] MEDS ORDERED: DEXTROSE 5% IV ONE ×2 (11:09)
--- NOTE | 2021-03-27 14:31 | PCM.PN ---
- General Info Date of Service: 03/27/21 Admission Dx/Problem (Free Text): Admission Diagnosis/Problem Admission Diagnosis/Problem Small bowel obstruction Subjective Update: Admitted for suspected SBO, NG continues to be in place draining appropriately. Patient was given water-soluble contrast. Currently has no gas, no BM. Complaining of abdominal cramping and bloating. NG with 500ml of bilious output overnight. Functional Status: Reports: Pain Controlled. Denies: Tolerating Diet - Review of Systems General: Reports: Other (Headache) HEENT: Reports: No Symptoms Pulmonary: Reports: No Symptoms Cardiovascular: Reports: No Symptoms Gastrointestinal: Reports: No Symptoms Genitourinary: Reports: No Symptoms Musculoskeletal: Reports: No Symptoms Skin: Reports: No Symptoms Neurological: Reports: No Symptoms Psychiatric: Reports: No Symptoms - Patient Data Vitals - Most Recent: Last Vital Signs Temp 97.5 F 03/27/21 12:27 Pulse 86 03/27/21 12:27 Resp 16 03/27/21 12:27 BP 128/69 03/27/21 12:27 Pulse Ox 91 L 03/27/21 12:27 Weight - Most Recent: 178 lb 7 oz I&O - Last 24 Hours: Intake & Output 03/26/21 03/27/21 03/27/21 22:59 06:59 14:59 Intake Total 1544 1053 Output Total 600 1150 Balance 944 -97 Lab Results Last 24 Hours: Laboratory Results - last 24 hr 03/26/21 03/26/21 03/27/21 Range/Units 17:19 22:02 04:21 WBC (4.0-11.0) K/uL RBC (4.30-5.90) M/uL Hgb (12.0-16.0) g/dL Hct (36.0-46.0) % MCV (80.0-98.0) fL MCH (27.0-32.0) pg MCHC (31.0-37.0) g/dL RDW Std Deviation (28.0-62.0) fl RDW Coeff of Dayanna (11.0-15.0) % Plt Count (150-400) K/uL MPV (7.40-12.00) fL Neut % (Auto) (48.0-80.0) % Lymph % (Auto) (16.0-40.0) % Webster % (Auto) (0.0-15.0) % Eos % (Auto) (0.0-7.0) % Baso % (Auto) (0.0-1.5) % Neut # (Auto) (1.4-5.7) K/uL Lymph # (Auto) (0.6-2.4) K/uL Webster # (Auto) (0.0-0.8) K/uL Eos # (Auto) (0.0-0.7) K/uL Baso # (Auto) (0.0-0.1) K/uL Nucleated RBC % /100WBC Nucleated RBCs # K/uL Sodium (136-145) mmol/L Potassium (3.5-5.1) mmol/L Chloride (98-107) mmol/L Carbon Dioxide (21.0-32.0) mmol/L BUN (7.0-18.0) mg/dL Creatinine (0.6-1.0) mg/dL Est Cr Clr Drug Dosing mL/min Estimated GFR (MDRD) ml/min Glucose (74-106) mg/dL POC Glucose 71 75 74 (70-99) mg/dL Calcium (8.5-10.1) mg/dL Phosphorus (2.6-4.7) mg/dL Magnesium (1.8-2.4) mg/dL Total Bilirubin (0.2-1.0) mg/dL AST (15-37) IU/L ALT (14-63) IU/L Alkaline Phosphatase (46-116) U/L Total Protein (6.4-8.2) g/dL Albumin (3.4-5.0) g/dL Globulin (2.6-4.0) g/dL Albumin/Globulin Ratio (0.9-1.6) 03/27/21 03/27/21 03/27/21 Range/Units 06:40 06:40 08:14 WBC 8.71 (4.0-11.0) K/uL RBC 4.29 L (4.30-5.90) M/uL Hgb 12.4 (12.0-16.0) g/dL Hct 38.5 (36.0-46.0) % MCV 89.7 (80.0-98.0) fL MCH 28.9 (27.0-32.0) pg MCHC 32.2 (31.0-37.0) g/dL RDW Std Deviation 53.2 (28.0-62.0) fl RDW Coeff of Dayanna 16 H (11.0-15.0) % Plt Count 336 (150-400) K/uL MPV 9.80 (7.40-12.00) fL Neut % (Auto) 74.1 (48.0-80.0) % Lymph % (Auto) 11.7 L (16.0-40.0) % Webster % (Auto) 12.1 (0.0-15.0) % Eos % (Auto) 2.0 (0.0-7.0) % Baso % (Auto) 0.1 (0.0-1.5) % Neut # (Auto) 6.5 H (1.4-5.7) K/uL Lymph # (Auto) 1.0 (0.6-2.4) K/uL Webster # (Auto) 1.1 H (0.0-0.8) K/uL Eos # (Auto) 0.2 (0.0-0.7) K/uL Baso # (Auto) 0.0 (0.0-0.1) K/uL Nucleated RBC % 0.0 /100WBC Nucleated RBCs # 0 K/uL Sodium 138 (136-145) mmol/L Potassium 4.4 (3.5-5.1) mmol/L Chloride 102 (98-107) mmol/L Carbon Dioxide 27.3 (21.0-32.0) mmol/L BUN 11 (7.0-18.0) mg/dL Creatinine 0.8 (0.6-1.0) mg/dL Est Cr Clr Drug Dosing 85.45 mL/min Estimated GFR (MDRD) > 60.0 ml/min Glucose 85 (74-106) mg/dL POC Glucose 79 (70-99) mg/dL Calcium 7.7 L (8.5-10.1) mg/dL Phosphorus 3.2 (2.6-4.7) mg/dL Magnesium 1.7 L (1.8-2.4) mg/dL Total Bilirubin 0.5 (0.2-1.0) mg/dL AST 17 (15-37) IU/L ALT 17 (14-63) IU/L Alkaline Phosphatase 123 H (46-116) U/L Total Protein 6.4 (6.4-8.2) g/dL Albumin 2.4 L (3.4-5.0) g/dL Globulin 4.0 (2.6-4.0) g/dL Albumin/Globulin Ratio 0.6 L (0.9-1.6) 03/27/21 Range/Units 12:26 WBC (4.0-11.0) K/uL RBC (4.30-5.90) M/uL Hgb (12.0-16.0) g/dL Hct (36.0-46.0) % MCV (80.0-98.0) fL MCH (27.0-32.0) pg MCHC (31.0-37.0) g/dL RDW Std Deviation (28.0-62.0) fl RDW Coeff of Dayanna (11.0-15.0) % Plt Count (150-400) K/uL MPV (7.40-12.00) fL Neut % (Auto) (48.0-80.0) % Lymph % (Auto) (16.0-40.0) % Webster % (Auto) (0.0-15.0) % Eos % (Auto) (0.0-7.0) % Baso % (Auto) (0.0-1.5) % Neut # (Auto) (1.4-5.7) K/uL Lymph # (Auto) (0.6-2.4) K/uL Webster # (Auto) (0.0-0.8) K/uL Eos # (Auto) (0.0-0.7) K/uL Baso # (Auto) (0.0-0.1) K/uL Nucleated RBC % /100WBC Nucleated RBCs # K/uL Sodium (136-145) mmol/L Potassium (3.5-5.1) mmol/L Chloride (98-107) mmol/L Carbon Dioxide (21.0-32.0) mmol/L BUN (7.0-18.0) mg/dL Creatinine (0.6-1.0) mg/dL Est Cr Clr Drug Dosing mL/min Estimated GFR (MDRD) ml/min Glucose (74-106) mg/dL POC Glucose 105 H (70-99) mg/dL Calcium (8.5-10.1) mg/dL Phosphorus (2.6-4.7) mg/dL Magnesium (1.8-2.4) mg/dL Total Bilirubin (0.2-1.0) mg/dL AST (15-37) IU/L ALT (14-63) IU/L Alkaline Phosphatase (46-116) U/L Total Protein (6.4-8.2) g/dL Albumin (3.4-5.0) g/dL Globulin (2.6-4.0) g/dL Albumin/Globulin Ratio (0.9-1.6) Med Orders - Current: Current Medications Benzocaine (Benzocaine 20% Topical [place] Ud) 1 each MUCMEM Q6H PRN PRN Reason: Sore Throat Last Admin: 03/26/21 12:44 Dose: 1 each Documented by: Dextrose/Water (50% Dextrose In Water 50 Ml Syringe) 50 ml IVPUSH ASDIRECTED PRN PRN Reason: Hypoglycemia Last Admin: 03/27/21 08:39 Dose: 50 ml Documented by: Enoxaparin Sodium (Enoxaparin 40 Mg/0.4 Ml Syringe) 40 mg SUBCUT Q24H [facility] Last Admin: 03/27/21 07:59 Dose: 40 mg Documented by: Hydromorphone HCl (Hydromorphone 1 Mg/Ml Syringe) 1 mg IVPUSH Q2H PRN PRN Reason: Abdominal Pain Last Admin: 03/27/21 12:44 Dose: 1 mg Documented by: Sodium Chloride (Normal Saline) 500 mls @ 999 mls/hr IV STAT [facility] Last Admin: 03/25/21 21:40 Dose: 999 mls/hr Documented by: Pantoprazole Sodium 40 mg/ (Sodium Chloride) 10 mls @ 300 mls/hr IV DAILY [facility] Last Admin: 03/27/21 08:02 Dose: 300 mls/hr Documented by: Dextrose/Lactated Ringer's (Dextrose 5%-Lactated Ringers) 1,000 mls @ 125 mls/hr IV ASDIRECTED [facility] Last Admin: 03/27/21 06:38 Dose: 125 mls/hr Documented by: Magnesium Sulfate 2 gm/ (Dextrose/Water) 1,004 mls @ 125 mls/hr IV ONETIME ONE Stop: 03/27/21 19:10 Last Admin: 03/27/21 12:22 Dose: 125 mls/hr Documented by: Lorazepam (Lorazepam 2 Mg/Ml Sdv) 1 mg IVPUSH Q4H PRN PRN Reason: Anxiety Last Admin: 03/27/21 14:10 Dose: 1 mg Documented by: Methylprednisolone Sodium Succinate (Methylprednisolone Sodium Succinate 40 Mg/1 Ml Sdv) 40 mg IV TID MARISELA Last Admin: 03/27/21 10:43 Dose: 40 mg Documented by: Ondansetron HCl (Ondansetron 4 Mg/2 Ml Sdv) 4 mg IVPUSH Q4H PRN PRN Reason: Nausea/Vomiting Last Admin: 03/27/21 08:42 Dose: 4 mg Documented by: Phenol/Menthol (Phenol 1.4% Oral Kingman 177 Ml Bottle) 1 ml MUCMEM Q2H PRN PRN Reason: Sore Throat Last Admin: 03/26/21 16:32 Dose: 1 spray Documented by: Discontinued Medications Benzocaine (Benzocaine 20% Topical [place] Ud) 1 each MUCMEM ONETIME ONE Stop: 03/26/21 02:27 Last Admin: 03/26/21 02:37 Dose: 1 each Documented by: Benzocaine (Benzocaine 20% Topical [place] Ud) 1 each MUCMEM Q2HR PRN PRN Reason: Sore Throat Hydromorphone HCl (Hydromorphone 1 Mg/Ml Syringe) 1 mg IVPUSH ONETIME ONE Stop: 03/25/21 23:08 Last Admin: 03/25/21 23:14 Dose: 1 mg Documented by: Hydromorphone HCl (Hydromorphone 1 Mg/Ml Syringe) 1 mg IVPUSH ONETIME ONE Stop: 03/26/21 04:30 Last Admin: 03/26/21 04:40 Dose: 1 mg Documented by: Hydromorphone HCl (Hydromorphone 1 Mg/Ml Syringe) Confirm Administered Dose 1 mg .ROUTE .STK-MED ONE Stop: 03/26/21 08:45 Last Admin: 03/26/21 08:49 Dose: 1 mg Documented by: Hydromorphone HCl (Hydromorphone 1 Mg/Ml Syringe) 1 mg IVPUSH Q1H PRN PRN Reason: Pain Last Admin: 03/26/21 19:01 Dose: 1 mg Documented by: Sodium Chloride (Normal Saline) 1,000 mls @ 150 mls/hr IV ASDIRECTED [facility] Last Admin: 03/26/21 04:57 Dose: 150 mls/hr Documented by: Lactated Ringer's (Ringers, Lactated) 1,000 mls @ 125 mls/hr IV ASDIRECTED [facility] Last Admin: 03/26/21 06:14 Dose: 125 mls/hr Documented by: Lactated Ringer's (Ringers, Lactated) 500 mls @ 999 mls/hr IV ASDIRECTED [facility] Stop: 03/26/21 18:02 Last Admin: 03/26/21 17:42 Dose: 999 mls/hr Documented by: Magnesium Sulfate 2 gm/ Premix 50 mls @ 25 mls/hr IV ONETIME ONE Stop: 03/27/21 11:45 Last Admin: 03/27/21 13:00 Dose: Not Given Documented by: Iopamidol (Iopamidol 755 Mg/Ml 500 Ml Multipack Bottle) 100 ml IVPUSH ONETIME STA Stop: 03/25/21 22:14 Last Admin: 03/25/21 23:46 Dose: 100 ml Documented by: Ketorolac Tromethamine (Ketorolac 30 Mg/Ml Sdv) 30 mg IVPUSH ONETIME ONE Stop: 03/25/21 20:47 Last Admin: 03/25/21 21:36 Dose: 30 mg Documented by: Ketorolac Tromethamine (Ketorolac 15 Mg/Ml Sdv) 15 mg IVPUSH ONETIME ONE Stop: 03/27/21 10:31 Last Admin: 03/27/21 10:41 Dose: 15 mg Documented by: Lorazepam (Lorazepam 2 Mg/Ml Sdv) 2 mg IVPUSH ONETIME ONE Stop: 03/26/21 08:50 Last Admin: 03/26/21 08:59 Dose: 2 mg Documented by: Midazolam HCl (Midazolam 1 Mg/Ml 2 Ml Sdv) 1 mg IVPUSH ONETIME ONE Stop: 03/26/21 02:11 Last Admin: 03/26/21 02:38 Dose: 1 mg Documented by: Morphine Sulfate (Morphine 2 Mg/Ml Syringe) 1 mg IVPUSH Q4H PRN PRN Reason: Pain Last Admin: 03/26/21 06:10 Dose: 1 mg Documented by: Ondansetron HCl (Ondansetron 4 Mg/2 Ml Sdv) 4 mg IVPUSH ONETIME ONE Stop: 03/25/21 20:47 Last Admin: 03/25/21 21:36 Dose: 4 mg Documented by: - Exam General: Alert, Oriented, Cooperative HEENT: Pupils Equal, Pupils Reactive, EOMI, Mucous Membr. Moist/[place] Neck: Supple Lungs: Clear to Auscultation, Normal Respiratory Effort Cardiovascular: Regular Rate, Regular Rhythm GI/Abdominal Exam: Normal Bowel Sounds, Soft, No Distention, Tender Extremities: Normal Inspection, Normal Range of Motion, Non-Tender, No Pedal Edema, Normal Capillary Refill Peripheral Pulses: 2+: Carotid (L), Carotid (R), Dorsalis Pedis (L), Dorsalis Pedis (R) Skin: Warm, Dry, Intact Neurological: No New Focal Deficit Psy/Mental Status: Alert, Normal Affect, Normal Mood - Patient Data Lab Results Last 24 hrs: Laboratory Results - last 24 hr 03/26/21 03/26/21 03/27/21 Range/Units 17:19 22:02 04:21 WBC (4.0-11.0) K/uL RBC (4.30-5.90) M/uL Hgb (12.0-16.0) g/dL Hct (36.0-46.0) % MCV (80.0-98.0) fL MCH (27.0-32.0) pg MCHC (31.0-37.0) g/dL RDW Std Deviation (28.0-62.0) fl RDW Coeff of Dayanna (11.0-15.0) % Plt Count (150-400) K/uL MPV (7.40-12.00) fL Neut % (Auto) (48.0-80.0) % Lymph % (Auto) (16.0-40.0) % Webster % (Auto) (0.0-15.0) % Eos % (Auto) (0.0-7.0) % Baso % (Auto) (0.0-1.5) % Neut # (Auto) (1.4-5.7) K/uL Lymph # (Auto) (0.6-2.4) K/uL Webster # (Auto) (0.0-0.8) K/uL Eos # (Auto) (0.0-0.7) K/uL Baso # (Auto) (0.0-0.1) K/uL Nucleated RBC % /100WBC Nucleated RBCs # K/uL Sodium (136-145) mmol/L Potassium (3.5-5.1) mmol/L Chloride (98-107) mmol/L Carbon Dioxide (21.0-32.0) mmol/L BUN (7.0-18.0) mg/dL Creatinine (0.6-1.0) mg/dL Est Cr Clr Drug Dosing mL/min Estimated GFR (MDRD) ml/min Glucose (74-106) mg/dL POC Glucose 71 75 74 (70-99) mg/dL Calcium (8.5-10.1) mg/dL Phosphorus (2.6-4.7) mg/dL Magnesium (1.8-2.4) mg/dL Total Bilirubin (0.2-1.0) mg/dL AST (15-37) IU/L ALT (14-63) IU/L Alkaline Phosphatase (46-116) U/L Total Protein (6.4-8.2) g/dL Albumin (3.4-5.0) g/dL Globulin (2.6-4.0) g/dL Albumin/Globulin Ratio (0.9-1.6) 03/27/21 03/27/21 03/27/21 Range/Units 06:40 06:40 08:14 WBC 8.71 (4.0-11.0) K/uL RBC 4.29 L (4.30-5.90) M/uL Hgb 12.4 (12.0-16.0) g/dL Hct 38.5 (36.0-46.0) % MCV 89.7 (80.0-98.0) fL MCH 28.9 (27.0-32.0) pg MCHC 32.2 (31.0-37.0) g/dL RDW Std Deviation 53.2 (28.0-62.0) fl RDW Coeff of Dayanna 16 H (11.0-15.0) % Plt Count 336 (150-400) K/uL MPV 9.80 (7.40-12.00) fL Neut % (Auto) 74.1 (48.0-80.0) % Lymph % (Auto) 11.7 L (16.0-40.0) % Webster % (Auto) 12.1 (0.0-15.0) % Eos % (Auto) 2.0 (0.0-7.0) % Baso % (Auto) 0.1 (0.0-1.5) % Neut # (Auto) 6.5 H (1.4-5.7) K/uL Lymph # (Auto) 1.0 (0.6-2.4) K/uL Webster # (Auto) 1.1 H (0.0-0.8) K/uL Eos # (Auto) 0.2 (0.0-0.7) K/uL Baso # (Auto) 0.0 (0.0-0.1) K/uL Nucleated RBC % 0.0 /100WBC Nucleated RBCs # 0 K/uL Sodium 138 (136-145) mmol/L Potassium 4.4 (3.5-5.1) mmol/L Chloride 102 (98-107) mmol/L Carbon Dioxide 27.3 (21.0-32.0) mmol/L BUN 11 (7.0-18.0) mg/dL Creatinine 0.8 (0.6-1.0) mg/dL Est Cr Clr Drug Dosing 85.45 mL/min Estimated GFR (MDRD) > 60.0 ml/min Glucose 85 (74-106) mg/dL POC Glucose 79 (70-99) mg/dL Calcium 7.7 L (8.5-10.1) mg/dL Phosphorus 3.2 (2.6-4.7) mg/dL Magnesium 1.7 L (1.8-2.4) mg/dL Total Bilirubin 0.5 (0.2-1.0) mg/dL AST 17 (15-37) IU/L ALT 17 (14-63) IU/L Alkaline Phosphatase 123 H (46-116) U/L Total Protein 6.4 (6.4-8.2) g/dL Albumin 2.4 L (3.4-5.0) g/dL Globulin 4.0 (2.6-4.0) g/dL Albumin/Globulin Ratio 0.6 L (0.9-1.6) 03/27/21 Range/Units 12:26 WBC (4.0-11.0) K/uL RBC (4.30-5.90) M/uL Hgb (12.0-16.0) g/dL Hct (36.0-46.0) % MCV (80.0-98.0) fL MCH (27.0-32.0) pg MCHC (31.0-37.0) g/dL RDW Std Deviation (28.0-62.0) fl RDW Coeff of Dayanna (11.0-15.0) % Plt Count (150-400) K/uL MPV (7.40-12.00) fL Neut % (Auto) (48.0-80.0) % Lymph % (Auto) (16.0-40.0) % Webster % (Auto) (0.0-15.0) % Eos % (Auto) (0.0-7.0) % Baso % (Auto) (0.0-1.5) % Neut # (Auto) (1.4-5.7) K/uL Lymph # (Auto) (0.6-2.4) K/uL Webster # (Auto) (0.0-0.8) K/uL Eos # (Auto) (0.0-0.7) K/uL Baso # (Auto) (0.0-0.1) K/uL Nucleated RBC % /100WBC Nucleated RBCs # K/uL Sodium (136-145) mmol/L Potassium (3.5-5.1) mmol/L Chloride (98-107) mmol/L Carbon Dioxide (21.0-32.0) mmol/L BUN (7.0-18.0) mg/dL Creatinine (0.6-1.0) mg/dL Est Cr Clr Drug Dosing mL/min Estimated GFR (MDRD) ml/min Glucose (74-106) mg/dL POC Glucose 105 H (70-99) mg/dL Calcium (8.5-10.1) mg/dL Phosphorus (2.6-4.7) mg/dL Magnesium (1.8-2.4) mg/dL Total Bilirubin (0.2-1.0) mg/dL AST (15-37) IU/L ALT (14-63) IU/L Alkaline Phosphatase (46-116) U/L Total Protein (6.4-8.2) g/dL Albumin (3.4-5.0) g/dL Globulin (2.6-4.0) g/dL Albumin/Globulin Ratio (0.9-1.6) Result Diagrams: 03/27/21 06:40 03/27/21 06:40 Sepsis Event Note - Evaluation Sepsis Screening Result: No Definite Risk - Focused Exam Vital Signs: Vital Signs Temp Pulse Resp BP Pulse Ox Pulse Ox 03/27/21 12:27 97.5 F 86 16 128/69 91 L 03/27/21 08:08 98.3 F 101 H 18 141/77 H 91 L 03/27/21 05:50 90 L 03/27/21 04:00 98.3 F 99 16 136/76 90 L - Problem List & Annotations (1) Partial small bowel obstruction SNOMED Code(s): 880335645 Code(s): K56.600 - PARTIAL INTESTINAL OBSTRUCTION, UNSPECIFIED TO CAUSE Status: Acute Current Visit: Yes - Problem List Review Problem List Initiated/Reviewed/Updated: Yes - My Orders Last 24 Hours: My Active Orders 03/26/21 14:26 Code Status [Resuscitation Status] Routine 03/26/21 21:00 HYDROmorphone [Dilaudid] 1 mg IVPUSH Q2H PRN - Plan Plan:: Pt is a 45 y/o was admitted and worked up for small bowel obstruction, found to have partial small bowel obstruction per contrast studies. At this time we w ill continue to treat conservatively per surgery recommendations which are much appreciated. 1. Small bowel obstruction: Afebrile, vitally stable in no acute distress. NG tube in place confirmed with abdominal x-ray, draining appropriately approximately 500 output this morning. Per surgery: water soluble contrast has made it to the patient's ascending and transverse colon. This means the patient has a partial sbo and will likely resolve with conservative management. Given the history of ileitis and no current signs of infection, Would keep NG in place to low intermittent suction until she starts passing gas. In the interm recommendations continue with bowel rest, fluids, NG tube in place, may use mouth swabs with ice chips. Continue with appropriate pain medication Dilaudid 1 mg every hour and 2 mg Ativan every 4 hours for anxiety since patient has a history of anxiety and having NG tube can be quite uncomfortable. Mild hypoglycemia noted frequently therefore, continue on D5 and LR, with prn D50 as patient is n.p.o, no history of diabetes mellitus, not on insulin. 2. Mild anemia: 11.6 today, asymptomatic, continue to trend daily with CBC. 3. Right nonobstructing renal calculus: Incidental finding, patient denies any CVA tenderness bilaterally or any loin to groin pain. Continue to monitor, no concerns for hematuria at this time. 4. Headache: One-time IV Toradol 15 mg, advised to reduce use of Dilaudid as patient has history of migraines. Continue to monitor closely. GI prophylaxis: Pantoprazole 40 DVT prophylaxis: Lovenox 40 subcu daily/SCDs I performed a history and physical exam of the patient and discussed management with resident. I have reviewed the residents note and agree with documented findings and plan unless otherwise specified in my note.
[2021-03-27] MEDS: Phenol 1.4% Oral Spray 177 ML Bottle MUCMEM PRN (20:10)
[2021-03-27] MEDS: Benzocaine 20% Topical Spray UD MUCMEM PRN (20:14)
[2021-03-27] MEDS: Lactated Ringers 1,000 ML IV SCH (23:08)
[2021-03-28] MEDS: HYDROmorphone 1 MG/ML Syringe IVPUSH PRN ×2 (01:41→03:40)
[2021-03-28] MEDS: LORazepam 2 MG/ML SDV IVPUSH PRN ×3 (01:46→16:13)
[2021-03-28] MEDS: Phenol 1.4% Oral Spray 177 ML Bottle MUCMEM PRN (01:49)
[2021-03-28] MEDS ORDERED: Ketorolac 15 MG/ML SDV IVPUSH PRN (04:29)
[2021-03-28] MEDS ORDERED: LORazepam 2 MG/ML SDV IVPUSH ONE (04:47)
[2021-03-28] MEDS ORDERED: Acetaminophen 1,000 MG in Premix Bag 1 BAG IV ONE (04:47)
[2021-03-28] MEDS: methylPREDNISolone Sodium Succinate 40 MG/1 ML SDV IV SCH ×3 (04:59→21:14)
[2021-03-28 06:47] LABS: BLOOD UREA NITROGEN,BUN 6 mg/dL (7.0-18.0); CARBON DIOXIDE,CO2 27.3 mmol/L (21.0-32.0); CHLORIDE,CL 102 mmol/L (98-107); GLUCOSE RANDOM 122 mg/dL (74-106); POTASSIUM,K 3.7 mmol/L (3.5-5.1); SODIUM,NA 140 mmol/L (136-145)
--- NOTE | 2021-03-28 07:35 | CR ---
INDICATION: Followup small bowel obstruction. TECHNIQUE: Single-view abdomen and pelvis. COMPARISON: Yesterday`s x-ray. FINDINGS: Interval development of [id number] gaseous distention of bowel loops in the central mid and lower abdomen and upper pelvis could be related to dilated small bowel loops. Some component of this bowel gas being related to colon is not excluded. Remainder the bowel gas pattern is within normal limits. Portions of the upper abdomen are not included on this exam. Opaque densities projected in the abdomen may be related to tattoos on the skin surface. NG tube remains in place with distal tip in the distal stomach. Surgical clips right abdomen. Remainder the exam is stable. Dictated by Lenard Cole MD @ 03/28/2021 7:33:[address] Lenard Cole @ Mar 28 2021 7:33AM
[2021-03-28] MEDS: Lactated Ringers 1,000 ML IV SCH (07:40)
[2021-03-28] MEDS ORDERED: HYDROmorphone 1 MG/ML Syringe IVPUSH PRN (07:56)
--- NOTE | 2021-03-28 07:58 | PCM.CONSN ---
- General Info Date of Service: 03/28/21 Subjective Update: Patient is a 45 year old female with a pSBO. She had 800ml of bilious NG output overnight. This morning around 4 am she had a headache and wanted something for pain. She was given IV Tylenol, IV Toradol, and a 1 mg bolus of IV Ativan. This controlled her pain. This morning an abdominal x-ray was performed which was grossly normal. She had contrast throughout the colon. There was some gaseous distention of the small bowel loops but the radiologist felt this was within normal limits. The patient overall feels less distended. She had a small hard bowel movement last night. We clamped her NG tube but kept her nothing by mouth. She tolerated 6 hours of this. She was given ice chips and water. Over the course of last hours she's been tolerating this with no nausea or vomiting. She had 2 more bowel movements over the morning. - Review of Systems General: Reports: No Symptoms Pulmonary: Reports: No Symptoms Cardiovascular: Reports: No Symptoms Gastrointestinal: Reports: No Symptoms - Patient Data Vitals - Most Recent: Last Vital Signs Temp 36.4 C 03/28/21 03:53 Pulse 92 03/28/21 03:53 Resp 20 03/28/21 03:53 BP 149/90 H 03/28/21 03:53 Pulse Ox 93 L 03/28/21 03:53 Weight - Most Recent: 80.938 kg I&O - Last 24 Hours: Intake & Output 03/27/21 03/28/21 03/28/21 22:59 06:59 14:59 Intake Total 1661 1214 Output Total 2300 2100 Balance -530 -241 Lab Results Last 24 Hours: Laboratory Results - last 24 hr 03/27/21 03/27/21 03/27/21 Range/Units 08:14 12:26 16:17 WBC (4.0-11.0) K/uL RBC (4.30-5.90) M/uL Hgb (12.0-16.0) g/dL Hct (36.0-46.0) % MCV (80.0-98.0) fL MCH (27.0-32.0) pg MCHC (31.0-37.0) g/dL RDW Std Deviation (28.0-62.0) fl RDW Coeff of Dayanna (11.0-15.0) % Plt Count (150-400) K/uL MPV (7.40-12.00) fL Neut % (Auto) (48.0-80.0) % Lymph % (Auto) (16.0-40.0) % Kinney % (Auto) (0.0-15.0) % Eos % (Auto) (0.0-7.0) % Baso % (Auto) (0.0-1.5) % Neut # (Auto) (1.4-5.7) K/uL Lymph # (Auto) (0.6-2.4) K/uL Kinney # (Auto) (0.0-0.8) K/uL Eos # (Auto) (0.0-0.7) K/uL Baso # (Auto) (0.0-0.1) K/uL Nucleated RBC % /100WBC Nucleated RBCs # K/uL Sodium (136-145) mmol/L Potassium (3.5-5.1) mmol/L Chloride (98-107) mmol/L Carbon Dioxide (21.0-32.0) mmol/L BUN (7.0-18.0) mg/dL Creatinine (0.6-1.0) mg/dL Est Cr Clr Drug Dosing mL/min Estimated GFR (MDRD) ml/min Glucose (74-106) mg/dL POC Glucose 79 105 H 128 H (70-99) mg/dL Calcium (8.5-10.1) mg/dL Phosphorus (2.6-4.7) mg/dL Magnesium (1.8-2.4) mg/dL Total Bilirubin (0.2-1.0) mg/dL AST (15-37) IU/L ALT (14-63) IU/L Alkaline Phosphatase (46-116) U/L Total Protein (6.4-8.2) g/dL Albumin (3.4-5.0) g/dL Globulin (2.6-4.0) g/dL Albumin/Globulin Ratio (0.9-1.6) 03/27/21 03/27/21 03/28/21 Range/Units 20:08 23:33 03:46 WBC (4.0-11.0) K/uL RBC (4.30-5.90) M/uL Hgb (12.0-16.0) g/dL Hct (36.0-46.0) % MCV (80.0-98.0) fL MCH (27.0-32.0) pg MCHC (31.0-37.0) g/dL RDW Std Deviation (28.0-62.0) fl RDW Coeff of Dayanna (11.0-15.0) % Plt Count (150-400) K/uL MPV (7.40-12.00) fL Neut % (Auto) (48.0-80.0) % Lymph % (Auto) (16.0-40.0) % Kinney % (Auto) (0.0-15.0) % Eos % (Auto) (0.0-7.0) % Baso % (Auto) (0.0-1.5) % Neut # (Auto) (1.4-5.7) K/uL Lymph # (Auto) (0.6-2.4) K/uL Kinney # (Auto) (0.0-0.8) K/uL Eos # (Auto) (0.0-0.7) K/uL Baso # (Auto) (0.0-0.1) K/uL Nucleated RBC % /100WBC Nucleated RBCs # K/uL Sodium (136-145) mmol/L Potassium (3.5-5.1) mmol/L Chloride (98-107) mmol/L Carbon Dioxide (21.0-32.0) mmol/L BUN (7.0-18.0) mg/dL Creatinine (0.6-1.0) mg/dL Est Cr Clr Drug Dosing mL/min Estimated GFR (MDRD) ml/min Glucose (74-106) mg/dL POC Glucose 143 H 139 H 108 H (70-99) mg/dL Calcium (8.5-10.1) mg/dL Phosphorus (2.6-4.7) mg/dL Magnesium (1.8-2.4) mg/dL Total Bilirubin (0.2-1.0) mg/dL AST (15-37) IU/L ALT (14-63) IU/L Alkaline Phosphatase (46-116) U/L Total Protein (6.4-8.2) g/dL Albumin (3.4-5.0) g/dL Globulin (2.6-4.0) g/dL Albumin/Globulin Ratio (0.9-1.6) 03/28/21 03/28/21 Range/Units 05:58 05:58 WBC 6.92 (4.0-11.0) K/uL RBC 4.40 (4.30-5.90) M/uL Hgb 12.5 (12.0-16.0) g/dL Hct 39.3 (36.0-46.0) % MCV 89.3 (80.0-98.0) fL MCH 28.4 (27.0-32.0) pg MCHC 31.8 (31.0-37.0) g/dL RDW Std Deviation 52.0 (28.0-62.0) fl RDW Coeff of Dayanna 16 H (11.0-15.0) % Plt Count 502 H (150-400) K/uL MPV 9.30 (7.40-12.00) fL Neut % (Auto) 85.4 H (48.0-80.0) % Lymph % (Auto) 10.1 L (16.0-40.0) % Kinney % (Auto) 4.5 (0.0-15.0) % Eos % (Auto) 0.0 (0.0-7.0) % Baso % (Auto) 0.0 (0.0-1.5) % Neut # (Auto) 5.9 H (1.4-5.7) K/uL Lymph # (Auto) 0.7 (0.6-2.4) K/uL Kinney # (Auto) 0.3 (0.0-0.8) K/uL Eos # (Auto) 0.0 (0.0-0.7) K/uL Baso # (Auto) 0.0 (0.0-0.1) K/uL Nucleated RBC % 0.0 /100WBC Nucleated RBCs # 0 K/uL Sodium 140 (136-145) mmol/L Potassium 3.7 (3.5-5.1) mmol/L Chloride 102 (98-107) mmol/L Carbon Dioxide 27.3 (21.0-32.0) mmol/L BUN 6 L (7.0-18.0) mg/dL Creatinine 0.8 (0.6-1.0) mg/dL Est Cr Clr Drug Dosing 85.45 mL/min Estimated GFR (MDRD) > 60.0 ml/min Glucose 122 H (74-106) mg/dL POC Glucose (70-99) mg/dL Calcium 8.2 L (8.5-10.1) mg/dL Phosphorus 3.3 (2.6-4.7) mg/dL Magnesium 2.3 (1.8-2.4) mg/dL Total Bilirubin 0.4 (0.2-1.0) mg/dL AST 14 L (15-37) IU/L ALT 18 (14-63) IU/L Alkaline Phosphatase 132 H (46-116) U/L Total Protein 7.1 (6.4-8.2) g/dL Albumin 2.7 L (3.4-5.0) g/dL Globulin 4.4 H (2.6-4.0) g/dL Albumin/Globulin Ratio 0.6 L (0.9-1.6) Med Orders - Current: Current Medications Benzocaine (Benzocaine 20% Topical Nicholson Ud) 1 each MUCMEM Q6H PRN PRN Reason: Sore Throat Last Admin: 03/27/21 20:14 Dose: 1 each Documented by: Dextrose/Water (50% Dextrose In Water 50 Ml Syringe) 50 ml IVPUSH ASDIRECTED PRN PRN Reason: Hypoglycemia Last Admin: 03/27/21 08:39 Dose: 50 ml Documented by: Enoxaparin Sodium (Enoxaparin 40 Mg/0.4 Ml Syringe) 40 mg SUBCUT Q24H [facility] Last Admin: 03/27/21 07:59 Dose: 40 mg Documented by: Hydromorphone HCl (Hydromorphone 1 Mg/Ml Syringe) 1 mg IVPUSH Q4H PRN PRN Reason: Abdominal Pain Sodium Chloride (Normal Saline) 500 mls @ 999 mls/hr IV STAT [facility] Last Admin: 03/25/21 21:40 Dose: 999 mls/hr Documented by: Pantoprazole Sodium 40 mg/ (Sodium Chloride) 10 mls @ 300 mls/hr IV DAILY [facility] Last Admin: 03/27/21 08:02 Dose: 300 mls/hr Documented by: Dextrose/Lactated Ringer's (Dextrose 5%-Lactated Ringers) 1,000 mls @ 125 mls/hr IV ASDIRECTED [facility] Last Admin: 03/27/21 06:38 Dose: 125 mls/hr Documented by: Lactated Ringer's (Ringers, Lactated) 1,000 mls @ 125 mls/hr IV ASDIRECTED [facility] Last Admin: 03/28/21 07:40 Dose: 125 mls/hr Documented by: Acetaminophen 1,000 mg/ Premix 100 mls @ 400 mls/hr IV ONETIME PRN PRN Reason: Pain Ketorolac Tromethamine (Ketorolac 15 Mg/Ml Sdv) 15 mg IVPUSH Q6H [facility] Stop: 04/02/21 04:29 Lorazepam (Lorazepam 2 Mg/Ml Sdv) 1 mg IVPUSH Q4H PRN PRN Reason: Anxiety Last Admin: 03/28/21 01:46 Dose: 1 mg Documented by: Methylprednisolone Sodium Succinate (Methylprednisolone Sodium Succinate 40 Mg/1 Ml Sdv) 40 mg IV TID [facility] Last Admin: 03/28/21 04:59 Dose: 40 mg Documented by: Ondansetron HCl (Ondansetron 4 Mg/2 Ml Sdv) 4 mg IVPUSH Q4H PRN PRN Reason: Nausea/Vomiting Last Admin: 03/27/21 23:35 Dose: 4 mg Documented by: Phenol/Menthol (Phenol 1.4% Oral Nicholson 177 Ml Bottle) 1 ml MUCMEM Q2H PRN PRN Reason: Sore Throat Last Admin: 03/28/21 01:49 Dose: 1 spray Documented by: Discontinued Medications Benzocaine (Benzocaine 20% Topical Nicholson Ud) 1 each MUCMEM ONETIME ONE Stop: 03/26/21 02:27 Last Admin: 03/26/21 02:37 Dose: 1 each Documented by: Benzocaine (Benzocaine 20% Topical Nicholson Ud) 1 each MUCMEM Q2HR PRN PRN Reason: Sore Throat Hydromorphone HCl (Hydromorphone 1 Mg/Ml Syringe) 1 mg IVPUSH ONETIME ONE Stop: 03/25/21 23:08 Last Admin: 03/25/21 23:14 Dose: 1 mg Documented by: Hydromorphone HCl (Hydromorphone 1 Mg/Ml Syringe) 1 mg IVPUSH ONETIME ONE Stop: 03/26/21 04:30 Last Admin: 03/26/21 04:40 Dose: 1 mg Documented by: Hydromorphone HCl (Hydromorphone 1 Mg/Ml Syringe) Confirm Administered Dose 1 mg .ROUTE .STK-MED ONE Stop: 03/26/21 08:45 Last Admin: 03/26/21 08:49 Dose: 1 mg Documented by: Hydromorphone HCl (Hydromorphone 1 Mg/Ml Syringe) 1 mg IVPUSH Q1H PRN PRN Reason: Pain Last Admin: 03/26/21 19:01 Dose: 1 mg Documented by: Hydromorphone HCl (Hydromorphone 1 Mg/Ml Syringe) 1 mg IVPUSH Q2H PRN PRN Reason: Abdominal Pain Last Admin: 03/28/21 03:40 Dose: 1 mg Documented by: Sodium Chloride (Normal Saline) 1,000 mls @ 150 [facility] Admin: 03/26/21 04:57 Dose: 150 mls/hr Documented by: Lactated Ringer's (Ringers, Lactated) 1,000 mls @ 125 [facility]ls[facility] Last Admin: 03/26/21 06:14 Dose: 125 mls/hr Documented by: Lactated Ringer's (Ringers, Lactated) 500 mls @ [facility] Stop: 03/26/21 18:02 Last Admin: 03/26/21 17:42 Dose: 999 mls/hr Documented by: Magnesium Sulfate 2 gm/ Premix 50 mls @ 25 mls/hr IV ONETIME ONE Stop: 03/27/21 11:45 Last Admin: 03/27/21 13:00 Dose: Not Given Documented by: Magnesium Sulfate 2 gm/ (Dextrose/Water) 1,004 mls @ 125 mls/hr IV ONETIME ONE Stop: 03/27/21 19:10 Last Admin: 03/27/21 12:22 Dose: 125 mls/hr Documented by: Acetaminophen 1,000 mg/ Premix 100 mls @ 400 mls/hr IV NOW ONE Stop: 03/28/21 05:01 Last Admin: 03/28/21 04:57 Dose: 400 mls/hr Documented by: Iopamidol (Iopamidol 755 Mg/Ml 500 Ml Multipack Bottle) 100 ml IVPUSH ONETIME STA Stop: 03/25/21 22:14 Last Admin: 03/25/21 23:46 Dose: 100 ml Documented by: Ketorolac Tromethamine (Ketorolac 30 Mg/Ml Sdv) 30 mg IVPUSH ONETIME ONE Stop: 03/25/21 20:47 Last Admin: 03/25/21 21:36 Dose: 30 mg Documented by: Ketorolac Tromethamine (Ketorolac 15 Mg/Ml Sdv) 15 mg IVPUSH ONETIME ONE Stop: 03/27/21 10:31 Last Admin: 03/27/21 10:41 Dose: 15 mg Documented by: Ketorolac Tromethamine (Ketorolac 15 Mg/Ml Sdv) 15 mg IVPUSH Q6H PRN PRN Reason: Pain Stop: 04/02/21 04:29 Last Admin: 03/28/21 04:38 Dose: 15 mg Documented by: Lorazepam (Lorazepam 2 Mg/Ml Sdv) 2 mg IVPUSH ONETIME ONE Stop: 03/26/21 08:50 Last Admin: 03/26/21 08:59 Dose: 2 mg Documented by: Lorazepam (Lorazepam 2 Mg/Ml Sdv) 1 mg IVPUSH ONETIME ONE Stop: 03/28/21 04:48 Last Admin: 03/28/21 04:57 Dose: 1 mg Documented by: Midazolam HCl (Midazolam 1 Mg/Ml 2 Ml Sdv) 1 mg IVPUSH ONETIME ONE Stop: 03/26/21 02:11 Last Admin: 03/26/21 02:38 Dose: 1 mg Documented by: Morphine Sulfate (Morphine 2 Mg/Ml Syringe) 1 mg IVPUSH Q4H PRN PRN Reason: Pain Last Admin: 03/26/21 06:10 Dose: 1 mg Documented by: Ondansetron HCl (Ondansetron 4 Mg/2 Ml Sdv) 4 mg IVPUSH ONETIME ONE Stop: 03/25/21 20:47 Last Admin: 03/25/21 21:36 Dose: 4 mg Documented by: - Exam General: Alert, Oriented, Other (anxious ) Lungs: Normal Respiratory Effort Cardiovascular: Regular Rate GI/Abdominal Exam: Soft, Non-Tender, No Distention Sepsis Event Note - Evaluation Sepsis Screening Result: No Definite Risk - Focused Exam Vital Signs: Vital Signs Temp Pulse Resp BP Pulse Ox 03/28/21 03:53 36.4 C 92 20 149/90 H 93 L 03/27/21 23:35 36.4 C 86 18 141/72 H 96 03/27/21 20:00 36.6 C 92 18 152/74 H 94 L Consult PN Assessment/Plan Procedures: Procedures AIRWAY INHALATION TREATMENT (10/06/19) ASSAY OF LACTIC ACID (10/06/19) ASSAY OF LIPASE (10/06/19) ASSAY OF MAGNESIUM (05/20/20) ASSAY OF NATRIURETIC PEPTIDE (10/06/19) ASSAY OF TROPONIN QUANT (05/20/20) BLOOD TYPING SEROLOGIC ABO (05/20/20) BLOOD TYPING SEROLOGIC RH(D) (05/20/20) KRISHAN DNA DIR PROBE (11/22/20) CARPAL TUNNEL SURGERY (03/07/18) COMPLETE CBC W/AUTO DIFF WBC (03/16/21) COMPREHEN METABOLIC PANEL (03/16/21) CT ABD & PELV W/CONTRAST (03/16/21) CT ANGIOGRAPHY CHEST (10/06/19) CT CHEST SPINE W/O DYE (02/06/16) CT HEAD/BRAIN W/O DYE (05/20/20) CT LUMBAR SPINE W/O DYE (02/06/16) CT NECK SPINE W/O DYE (05/20/20) DRUG TEST PRSMV CHEM ANLYZR (05/20/20) DRUG TEST PRSMV DIR OPT OBS (05/20/20) ELECTROCARDIOGRAM TRACING (05/20/20) EMERGENCY DEPT VISIT (03/16/21) EMERGENCY DEPT VISIT (05/27/20) EMERGENCY DEPT VISIT (05/20/20) EMERGENCY DEPT VISIT (07/31/18) EMERGENCY DEPT VISIT (07/25/14) EMERGENCY DEPT VISIT (07/25/14) JUAN DAVID VAG DNA DIR PROBE (11/22/20) IMMUNIZATION ADMIN (05/20/20) MRI CHEST SPINE W/O DYE (01/08/18) MRI LUMBAR SPINE W/O DYE (01/08/18) PROTHROMBIN TIME (05/20/20) ROUTINE VENIPUNCTURE (03/16/21) RPR S/N/AX/GEN/TRNK 2.5CM/< (05/20/20) TDAP VACCINE 7 YRS/> IM (05/20/20) THER/PROPH/DIAG IV INF INIT (10/06/19) THROMBOPLASTIN TIME PARTIAL (05/20/20) TRICHOMONAS VAGIN DIR PROBE (11/22/20) TX/PRO/DX INJ NEW DRUG ADDON (10/06/19) URINALYSIS AUTO W/SCOPE (07/31/18) URINE TEST (05/20/20) US EXAM OF HEAD AND NECK (02/26/20) X-RAY EXAM CHEST 1 VIEW (05/20/20) (1) SBO (small bowel obstruction) SNOMED Code(s): 725161670 Code(s): K56.609 - UNSP INTESTNL OBST, UNSP TO PARTIAL VERSUS COMPLETE OBST Current Visit: Yes Problem List Initiated/Reviewed/Updated: Yes My Orders Last 24 Hours: My Active Orders 03/28/21 07:56 HYDROmorphone [Dilaudid] 1 mg IVPUSH Q4H PRN 03/28/21 11:00 Acetaminophen [Ofirmev 1000 mg/100 ml] 1,000 mg Premix Bag 1 bag IV ONETIME Ketorolac [Toradol] 15 mg IVPUSH Q6H Plan: The patient can have her NG tube removed. Her diet can be advanced to clear liquids. I would stick to clear liquids tonight given that the patient has had a prolonged course of this partial small bowel obstruction. If she has no episodes of nausea vomiting overnight she can progress to a full liquid diet in the morning and a regular diet at noon. If she tolerates this and likely she can go home tomorrow. She can restart her home meds today after the NG is out. Woul d start MiraLAX 17 g daily scheduled today.
--- NOTE | 2021-03-28 09:13 | PCM.PN ---
- General Info Date of Service: 03/28/21 Admission Dx/Problem (Free Text): Admission Diagnosis/Problem Admission Diagnosis/Problem Small bowel obstruction Subjective Update: Admitted for suspected SBO, found to have partial small bowel obstruction/ileitis for which patient was started on steroids yesterday. Has intermittently complained about headaches with started overnight on IV Tylenol and Toradol. This morning NG continues to be in place draining appropriately, which was clamped this morning per surgery. Abdominal pain has improved, patient is expressing desire to start eating. Patient is stable in no acute distress. Functional Status: Reports: Pain Controlled, Urinating - Review of Systems General: Reports: No Symptoms HEENT: Reports: Headaches Pulmonary: Reports: No Symptoms Cardiovascular: Reports: No Symptoms Gastrointestinal: Reports: No Symptoms Genitourinary: Reports: No Symptoms Musculoskeletal: Reports: No Symptoms Skin: Reports: No Symptoms Neurological: Reports: No Symptoms Psychiatric: Reports: No Symptoms - Patient Data Vitals - Most Recent: Last Vital Signs Temp 97.6 F 03/28/21 03:53 Pulse 92 03/28/21 03:53 Resp 20 03/28/21 03:53 BP 149/90 H 03/28/21 03:53 Pulse Ox 93 L 03/28/21 03:53 Weight - Most Recent: 178 lb 7 oz I&O - Last 24 Hours: Intake & Output 03/27/21 03/28/21 03/28/21 22:59 06:59 14:59 Intake Total 1661 1214 Output Total 2300 2100 Balance -429 -296 Lab Results Last 24 Hours: Laboratory Results - last 24 hr 03/27/21 03/27/21 03/27/21 Range/Units 12:26 16:17 20:08 WBC (4.0-11.0) K/uL RBC (4.30-5.90) M/uL Hgb (12.0-16.0) g/dL Hct (36.0-46.0) % MCV (80.0-98.0) fL MCH (27.0-32.0) pg MCHC (31.0-37.0) g/dL RDW Std Deviation (28.0-62.0) fl RDW Coeff of [place] (11.0-15.0) % Plt Count (150-400) K/uL MPV (7.40-12.00) fL Neut % (Auto) (48.0-80.0) % Lymph % (Auto) (16.0-40.0) % [place] % (Auto) (0.0-15.0) % Eos % (Auto) (0.0-7.0) % Baso % (Auto) (0.0-1.5) % Neut # (Auto) (1.4-5.7) K/uL Lymph # (Auto) (0.6-2.4) K/uL [place] # (Auto) (0.0-0.8) K/uL Eos # (Auto) (0.0-0.7) K/uL Baso # (Auto) (0.0-0.1) K/uL Nucleated RBC % /100WBC Nucleated RBCs # K/uL Sodium (136-145) mmol/L Potassium (3.5-5.1) mmol/L Chloride (98-107) mmol/L Carbon Dioxide (21.0-32.0) mmol/L BUN (7.0-18.0) mg/dL Creatinine (0.6-1.0) mg/dL Est Cr Clr Drug Dosing mL/min Estimated GFR (MDRD) ml/min Glucose (74-106) mg/dL POC Glucose 105 H 128 H 143 H (70-99) mg/dL Calcium (8.5-10.1) mg/dL Phosphorus (2.6-4.7) mg/dL Magnesium (1.8-2.4) mg/dL Total Bilirubin (0.2-1.0) mg/dL AST (15-37) IU/L ALT (14-63) IU/L Alkaline Phosphatase (46-116) U/L Total Protein (6.4-8.2) g/dL Albumin (3.4-5.0) g/dL Globulin (2.6-4.0) g/dL Albumin/Globulin Ratio (0.9-1.6) 03/27/21 03/28/21 03/28/21 Range/Units 23:33 03:46 05:58 WBC 6.92 (4.0-11.0) K/uL RBC 4.40 (4.30-5.90) M/uL Hgb 12.5 (12.0-16.0) g/dL Hct 39.3 (36.0-46.0) % MCV 89.3 (80.0-98.0) fL MCH 28.4 (27.0-32.0) pg MCHC 31.8 (31.0-37.0) g/dL RDW Std Deviation 52.0 (28.0-62.0) fl RDW Coeff of Dayanna 16 H (11.0-15.0) % Plt Count 502 H (150-400) K/uL MPV 9.30 (7.40-12.00) fL Neut % (Auto) 85.4 H (48.0-80.0) % Lymph % (Auto) 10.1 L (16.0-40.0) % [place] % (Auto) 4.5 (0.0-15.0) % Eos % (Auto) 0.0 (0.0-7.0) % Baso % (Auto) 0.0 (0.0-1.5) % Neut # (Auto) 5.9 H (1.4-5.7) K/uL Lymph # (Auto) 0.7 (0.6-2.4) K/uL [place] # (Auto) 0.3 (0.0-0.8) K/uL Eos # (Auto) 0.0 (0.0-0.7) K/uL Baso # (Auto) 0.0 (0.0-0.1) K/uL Nucleated RBC % 0.0 /100WBC Nucleated RBCs # 0 K/uL Sodium (136-145) mmol/L Potassium (3.5-5.1) mmol/L Chloride (98-107) mmol/L Carbon Dioxide (21.0-32.0) mmol/L BUN (7.0-18.0) mg/dL Creatinine (0.6-1.0) mg/dL Est Cr Clr Drug Dosing mL/min Estimated GFR (MDRD) ml/min Glucose (74-106) mg/dL POC Glucose 139 H 108 H (70-99) mg/dL Calcium (8.5-10.1) mg/dL Phosphorus (2.6-4.7) mg/dL Magnesium (1.8-2.4) mg/dL Total Bilirubin (0.2-1.0) mg/dL AST (15-37) IU/L ALT (14-63) IU/L Alkaline Phosphatase (46-116) U/L Total Protein (6.4-8.2) g/dL Albumin (3.4-5.0) g/dL Globulin (2.6-4.0) g/dL Albumin/Globulin Ratio (0.9-1.6) 03/28/21 03/28/21 Range/Units 05:58 07:58 WBC (4.0-11.0) K/uL RBC (4.30-5.90) M/uL Hgb (12.0-16.0) g/dL Hct (36.0-46.0) % MCV (80.0-98.0) fL MCH (27.0-32.0) pg MCHC (31.0-37.0) g/dL RDW Std Deviation (28.0-62.0) fl RDW Coeff of Dayanna (11.0-15.0) % Plt Count (150-400) K/uL MPV (7.40-12.00) fL Neut % (Auto) (48.0-80.0) % Lymph % (Auto) (16.0-40.0) % [place] % (Auto) (0.0-15.0) % Eos % (Auto) (0.0-7.0) % Baso % (Auto) (0.0-1.5) % Neut # (Auto) (1.4-5.7) K/uL Lymph # (Auto) (0.6-2.4) K/uL [place] # (Auto) (0.0-0.8) K/uL Eos # (Auto) (0.0-0.7) K/uL Baso # (Auto) (0.0-0.1) K/uL Nucleated RBC % /100WBC Nucleated RBCs # K/uL Sodium 140 (136-145) mmol/L Potassium 3.7 (3.5-5.1) mmol/L Chloride 102 (98-107) mmol/L Carbon Dioxide 27.3 (21.0-32.0) mmol/L BUN 6 L (7.0-18.0) mg/dL Creatinine 0.8 (0.6-1.0) mg/dL Est Cr Clr Drug Dosing 85.45 mL/min Estimated GFR (MDRD) > 60.0 ml/min Glucose 122 H (74-106) mg/dL POC Glucose 113 H (70-99) mg/dL Calcium 8.2 L (8.5-10.1) mg/dL Phosphorus 3.3 (2.6-4.7) mg/dL Magnesium 2.3 (1.8-2.4) mg/dL Total Bilirubin 0.4 (0.2-1.0) mg/dL AST 14 L (15-37) IU/L ALT 18 (14-63) IU/L Alkaline Phosphatase 132 H (46-116) U/L Total Protein 7.1 (6.4-8.2) g/dL Albumin 2.7 L (3.4-5.0) g/dL Globulin 4.4 H (2.6-4.0) g/dL Albumin/Globulin Ratio 0.6 L (0.9-1.6) Med Orders - Current: Current Medications Benzocaine (Benzocaine 20% Topical [place] Ud) 1 each MUCMEM Q6H PRN PRN Reason: Sore Throat Last Admin: 03/27/21 20:14 Dose: 1 each Documented by: Dextrose/Water (50% Dextrose In Water 50 Ml Syringe) 50 ml IVPUSH ASDIRECTED PRN PRN Reason: Hypoglycemia Last Admin: 03/27/21 08:39 Dose: 50 ml Documented by: Enoxaparin Sodium (Enoxaparin 40 Mg/0.4 Ml Syringe) 40 mg SUBCUT Q24H MARISELA Last Admin: 03/27/21 07:59 Dose: 40 mg Documented by: Hydromorphone HCl (Hydromorphone 1 Mg/Ml Syringe) 1 mg IVPUSH Q4H PRN PRN Reason: Abdominal Pain Sodium Chloride (Normal Saline) 500 mls @ 999 mls/hr IV STAT MARISELA Last Admin: 03/25/21 21:40 Dose: 999 mls/hr Documented by: Pantoprazole Sodium 40 mg/ (Sodium Chloride) 10 mls @ 300 mls/hr IV DAILY MARISELA Last Admin: 03/27/21 08:02 Dose: 300 mls/hr Documented by: Dextrose/Lactated Ringer's (Dextrose 5%-Lactated Ringers) 1,000 mls @ 125 mls/hr IV ASDIRECTED MARISELA Last Admin: 03/27/21 06:38 Dose: 125 mls/hr Documented by: Lactated Ringer's (Ringers, Lactated) 1,000 mls @ 125 mls/hr IV ASDIRECTED [facility] Last Admin: 03/28/21 07:40 Dose: 125 mls/hr Documented by: Acetaminophen 1,000 mg/ Premix 100 mls @ 400 mls/hr IV ONETIME PRN PRN Reason: Pain Ketorolac Tromethamine (Ketorolac 15 Mg/Ml Sdv) 15 mg IVPUSH Q6H [facility] Stop: 04/02/21 04:29 Lorazepam (Lorazepam 2 Mg/Ml Sdv) 1 mg IVPUSH Q4H PRN PRN Reason: Anxiety Last Admin: 03/28/21 01:46 Dose: 1 mg Documented by: Methylprednisolone Sodium Succinate (Methylprednisolone Sodium Succinate 40 Mg/1 Ml Sdv) 40 mg IV TID [facility] Last Admin: 03/28/21 04:59 Dose: 40 mg Documented by: Ondansetron HCl (Ondansetron 4 Mg/2 Ml Sdv) 4 mg IVPUSH Q4H PRN PRN Reason: Nausea/Vomiting Last Admin: 03/27/21 23:35 Dose: 4 mg Documented by: Phenol/Menthol (Phenol 1.4% Oral [place] 177 Ml Bottle) 1 ml MUCMEM Q2H PRN PRN Reason: Sore Throat Last Admin: 03/28/21 01:49 Dose: 1 spray Documented by: Discontinued Medications Benzocaine (Benzocaine 20% Topical [place] Ud) 1 each MUCMEM ONETIME ONE Stop: 03/26/21 02:27 Last Admin: 03/26/21 02:37 Dose: 1 each Documented by: Benzocaine (Benzocaine 20% Topical [place] Ud) 1 each MUCMEM Q2HR PRN PRN Reason: Sore Throat Hydromorphone HCl (Hydromorphone 1 Mg/Ml Syringe) 1 mg IVPUSH ONETIME ONE Stop: 03/25/21 23:08 Last Admin: 03/25/21 23:14 Dose: 1 mg Documented by: Hydromorphone HCl (Hydromorphone 1 Mg/Ml Syringe) 1 mg IVPUSH ONETIME ONE Stop: 03/26/21 04:30 Last Admin: 03/26/21 04:40 Dose: 1 mg Documented by: Hydromorphone HCl (Hydromorphone 1 Mg/Ml Syringe) Confirm Administered Dose 1 mg .ROUTE .STK-MED ONE Stop: 03/26/21 08:45 Last Admin: 03/26/21 08:49 Dose: 1 mg Documented by: Hydromorphone HCl (Hydromorphone 1 Mg/Ml Syringe) 1 mg IVPUSH Q1H PRN PRN Reason: Pain Last Admin: 03/26/21 19:01 Dose: 1 mg Documented by: Hydromorphone HCl (Hydromorphone 1 Mg/Ml Syringe) 1 mg IVPUSH Q2H PRN PRN Reason: Abdominal Pain Last Admin: 03/28/21 03:40 Dose: 1 mg Documented by: Sodium Chloride (Normal Saline) 1,000 mls @ 150 mls/hr IV ASDIRECTED [facility] Last Admin: 03/26/21 04:57 Dose: 150 mls/hr Documented by: Lactated Ringer's (Ringers, Lactated) 1,000 mls @ 125 mls/hr IV ASDIRECTED [facility] Last Admin: 03/26/21 06:14 Dose: 125 mls/hr Documented by: Lactated Ringer's (Ringers, Lactated) 500 mls @ [facility] Stop: 03/26/21 18:02 Last Admin: 03/26/21 17:42 Dose: 999 mls/hr Documented by: Magnesium Sulfate 2 gm/ Premix 50 mls @ 25 mls/hr IV ONETIME ONE Stop: 03/27/21 11:45 Last Admin: 03/27/21 13:00 Dose: Not Given Documented by: Magnesium Sulfate 2 gm/ (Dextrose/Water) 1,004 mls @ 125 mls/hr IV ONETIME ONE Stop: 03/27/21 19:10 Last Admin: 03/27/21 12:22 Dose: 125 mls/hr Documented by: Acetaminophen 1,000 mg/ Premix 100 mls @ 400 mls/hr IV NOW ONE Stop: 03/28/21 05:01 Last Admin: 03/28/21 04:57 Dose: 400 mls/hr Documented by: Iopamidol (Iopamidol 755 Mg/Ml 500 Ml Multipack Bottle) 100 ml IVPUSH ONETIME STA Stop: 03/25/21 22:14 Last Admin: 03/25/21 23:46 Dose: 100 ml Documented by: Ketorolac Tromethamine (Ketorolac 30 Mg/Ml Sdv) 30 mg IVPUSH ONETIME ONE Stop: 03/25/21 20:47 Last Admin: 03/25/21 21:36 Dose: 30 mg Documented by: Ketorolac Tromethamine (Ketorolac 15 Mg/Ml Sdv) 15 mg IVPUSH ONETIME ONE Stop: 03/27/21 10:31 Last Admin: 03/27/21 10:41 Dose: 15 mg Documented by: Ketorolac Tromethamine (Ketorolac 15 Mg/Ml Sdv) 15 mg IVPUSH Q6H PRN PRN Reason: Pain Stop: 04/02/21 04:29 Last Admin: 03/28/21 04:38 Dose: 15 mg Documented by: Lorazepam (Lorazepam 2 Mg/Ml Sdv) 2 mg IVPUSH ONETIME ONE Stop: 03/26/21 08:50 Last Admin: 03/26/21 08:59 Dose: 2 mg Documented by: Lorazepam (Lorazepam 2 Mg/Ml Sdv) 1 mg IVPUSH ONETIME ONE Stop: 03/28/21 04:48 Last Admin: 03/28/21 04:57 Dose: 1 mg Documented by: Midazolam HCl (Midazolam 1 Mg/Ml 2 Ml Sdv) 1 mg IVPUSH ONETIME ONE Stop: 03/26/21 02:11 Last Admin: 03/26/21 02:38 Dose: 1 mg Documented by: Morphine Sulfate (Morphine 2 Mg/Ml Syringe) 1 mg IVPUSH Q4H PRN PRN Reason: Pain Last Admin: 03/26/21 06:10 Dose: 1 mg Documented by: Ondansetron HCl (Ondansetron 4 Mg/2 Ml Sdv) 4 mg IVPUSH ONETIME ONE Stop: 03/25/21 20:47 Last Admin: 03/25/21 21:36 Dose: 4 mg Documented by: - Exam Quality Assessment: DVT Prophylaxis General: Alert, Oriented, Cooperative HEENT: Pupils Equal, Pupils Reactive, EOMI, Mucous Membr. Moist/[place] Neck: Supple, No JVD Lungs: Clear to Auscultation, Normal Respiratory Effort Cardiovascular: Regular Rate, Regular Rhythm GI/Abdominal Exam: Normal Bowel Sounds, Soft, Non-Tender Extremities: Normal Inspection, Normal Range of Motion, Non-Tender, No Pedal Edema, Normal Capillary Refill Peripheral Pulses: 2+: Carotid (L), Carotid (R), Dorsalis Pedis (L), Dorsalis P galina (R) Skin: Warm, Dry, Intact Neurological: No New Focal Deficit Psy/Mental Status: Alert, Normal Affect, Normal Mood - Patient Data Lab Results Last 24 hrs: Laboratory Results - last 24 hr 03/27/21 03/27/21 03/27/21 Range/Units 12:26 16:17 20:08 WBC (4.0-11.0) K/uL RBC (4.30-5.90) M/uL Hgb (12.0-16.0) g/dL Hct (36.0-46.0) % MCV (80.0-98.0) fL MCH (27.0-32.0) pg MCHC (31.0-37.0) g/dL RDW Std Deviation (28.0-62.0) fl RDW Coeff of Dayanna (11.0-15.0) % Plt Count (150-400) K/uL MPV (7.40-12.00) fL Neut % (Auto) (48.0-80.0) % Lymph % (Auto) (16.0-40.0) % [place] % (Auto) (0.0-15.0) % Eos % (Auto) (0.0-7.0) % Baso % (Auto) (0.0-1.5) % Neut # (Auto) (1.4-5.7) K/uL Lymph # (Auto) (0.6-2.4) K/uL [place] # (Auto) (0.0-0.8) K/uL Eos # (Auto) (0.0-0.7) K/uL Baso # (Auto) (0.0-0.1) K/uL Nucleated RBC % /100WBC Nucleated RBCs # K/uL Sodium (136-145) mmol/L Potassium (3.5-5.1) mmol/L Chloride (98-107) mmol/L Carbon Dioxide (21.0-32.0) mmol/L BUN (7.0-18.0) mg/dL Creatinine (0.6-1.0) mg/dL Est Cr Clr Drug Dosing mL/min Estimated GFR (MDRD) ml/min Glucose (74-106) mg/dL POC Glucose 105 H 128 H 143 H (70-99) mg/dL Calcium (8.5-10.1) mg/dL Phosphorus (2.6-4.7) mg/dL Magnesium (1.8-2.4) mg/dL Total Bilirubin (0.2-1.0) mg/dL AST (15-37) IU/L ALT (14-63) IU/L Alkaline Phosphatase (46-116) U/L Total Protein (6.4-8.2) g/dL Albumin (3.4-5.0) g/dL Globulin (2.6-4.0) g/dL Albumin/Globulin Ratio (0.9-1.6) 03/27/21 03/28/21 03/28/21 Range/Units 23:33 03:46 05:58 WBC 6.92 (4.0-11.0) K/uL RBC 4.40 (4.30-5.90) M/uL Hgb 12.5 (12.0-16.0) g/dL Hct 39.3 (36.0-46.0) % MCV 89.3 (80.0-98.0) fL MCH 28.4 (27.0-32.0) pg MCHC 31.8 (31.0-37.0) g/dL RDW Std Deviation 52.0 (28.0-62.0) fl RDW Coeff of Dayanna 16 H (11.0-15.0) % Plt Count 502 H (150-400) K/uL MPV 9.30 (7.40-12.00) fL Neut % (Auto) 85.4 H (48.0-80.0) % Lymph % (Auto) 10.1 L (16.0-40.0) % [place] % (Auto) 4.5 (0.0-15.0) % Eos % (Auto) 0.0 (0.0-7.0) % Baso % (Auto) 0.0 (0.0-1.5) % Neut # (Auto) 5.9 H (1.4-5.7) K/uL Lymph # (Auto) 0.7 (0.6-2.4) K/uL [place] # (Auto) 0.3 (0.0-0.8) K/uL Eos # (Auto) 0.0 (0.0-0.7) K/uL Baso # (Auto) 0.0 (0.0-0.1) K/uL Nucleated RBC % 0.0 /100WBC Nucleated RBCs # 0 K/uL Sodium (136-145) mmol/L Potassium (3.5-5.1) mmol/L Chloride (98-107) mmol/L Carbon Dioxide (21.0-32.0) mmol/L BUN (7.0-18.0) mg/dL Creatinine (0.6-1.0) mg/dL Est Cr Clr Drug Dosing mL/min Estimated GFR (MDRD) ml/min Glucose (74-106) mg/dL POC Glucose 139 H 108 H (70-99) mg/dL Calcium (8.5-10.1) mg/dL Phosphorus (2.6-4.7) mg/dL Magnesium (1.8-2.4) mg/dL Total Bilirubin (0.2-1.0) mg/dL AST (15-37) IU/L ALT (14-63) IU/L Alkaline Phosphatase (46-116) U/L Total Protein (6.4-8.2) g/dL Albumin (3.4-5.0) g/dL Globulin (2.6-4.0) g/dL Albumin/Globulin Ratio (0.9-1.6) 03/28/21 03/28/21 Range/Units 05:58 07:58 WBC (4.0-11.0) K/uL RBC (4.30-5.90) M/uL Hgb (12.0-16.0) g/dL Hct (36.0-46.0) % MCV (80.0-98.0) fL MCH (27.0-32.0) pg MCHC (31.0-37.0) g/dL RDW Std Deviation (28.0-62.0) fl RDW Coeff of [place] (11.0-15.0) % Plt Count (150-400) K/uL MPV (7.40-12.00) fL Neut % (Auto) (48.0-80.0) % Lymph % (Auto) (16.0-40.0) % [place] % (Auto) (0.0-15.0) % Eos % (Auto) (0.0-7.0) % Baso % (Auto) (0.0-1.5) % Neut # (Auto) (1.4-5.7) K/uL Lymph # (Auto) (0.6-2.4) K/uL [place] # (Auto) (0.0-0.8) K/uL Eos # (Auto) (0.0-0.7) K/uL Baso # (Auto) (0.0-0.1) K/uL Nucleated RBC % /100WBC Nucleated RBCs # K/uL Sodium 140 (136-145) mmol/L Potassium 3.7 (3.5-5.1) mmol/L Chloride 102 (98-107) mmol/L Carbon Dioxide 27.3 (21.0-32.0) mmol/L BUN 6 L (7.0-18.0) mg/dL Creatinine 0.8 (0.6-1.0) mg/dL Est Cr Clr Drug Dosing 85.45 mL/min Estimated GFR (MDRD) > 60.0 ml/min Glucose 122 H (74-106) mg/dL POC Glucose 113 H (70-99) mg/dL Calcium 8.2 L (8.5-10.1) mg/dL Phosphorus 3.3 (2.6-4.7) mg/dL Magnesium 2.3 (1.8-2.4) mg/dL Total Bilirubin 0.4 (0.2-1.0) mg/dL AST 14 L (15-37) IU/L ALT 18 (14-63) IU/L Alkaline Phosphatase 132 H (46-116) U/L Total Protein 7.1 (6.4-8.2) g/dL Albumin 2.7 L (3.4-5.0) g/dL Globulin 4.4 H (2.6-4.0) g/dL Albumin/Globulin Ratio 0.6 L (0.9-1.6) Result Diagrams: 03/28/21 05:58 06/15/21 05:58 Sepsis Event Note - Evaluation Sepsis Screening Result: No Definite Risk - Focused Exam Vital Signs: Vital Signs Temp Pulse Resp BP Pulse Ox 03/28/21 03:53 97.6 F 92 20 149/90 H 93 L 03/27/21 23:35 97.5 F 86 18 141/72 H 96 - Problem List & Annotations (1) Partial small bowel obstruction SNOMED Code(s): 956877094 Code(s): K56.600 - PARTIAL INTESTINAL OBSTRUCTION, UNSPECIFIED TO CAUSE Status: Acute Current Visit: Yes - Problem List Review Problem List Initiated/Reviewed/Updated: Yes - Plan Plan:: Pt is a 45 y/o was admitted and worked up for small bowel obstruction, found to have partial small bowel obstruction per contrast studies. At this time we will continue to treat conservatively per surgery recommendations which are much appreciated. 1. Small bowel obstruction: Afebrile, vitally stable in no acute distress. Undress appears to have advancement into the colon also patient had a small bowel movement this morning, therefore per surgery will be clamping NG tube. Initiating clear liquid diet seeing how she tolerates prior to advancing further. Given the history of ileitis and no current signs of infection, continue on Solu-Medrol 40, 3 times daily. Abdominal pain controlled with Dilaudid 1mg will increase time between doses now. 2. Mild anemia: Resolved, asymptomatic, continue to trend daily with CBC. 3. Right nonobstructing renal calculus: Incidental finding, patient denies any CVA tenderness bilaterally or any loin to groin pain. Continue to monitor, no concerns for hematuria at this time. 4. Headache: Tension-like headache, did not have any photophobia therefore not a migraine despite past medical history of migraines. Patient was started on Toradol and IV Tylenol. Continue to monitor closely. Will be advancing diet today perhaps this will help with headache-like symptoms. GI prophylaxis: Pantoprazole 40 DVT prophylaxis: Lovenox 40 subcu daily/SCDs
[2021-03-28] MEDS: Enoxaparin 40 MG/0.4 ML Syringe SUBCUT SCH (09:39)
[2021-03-28] MEDS: Pantoprazole 40 MG in Sodium Chloride 0.9% 10 ML IV SCH (09:39)
[2021-03-28] MEDS ORDERED: Acetaminophen 1,000 MG in Premix Bag 1 BAG IV PRN (11:00)
[2021-03-28] MEDS: Ketorolac 15 MG/ML SDV IVPUSH SCH ×3 (11:01→23:00)
[2021-03-28] MEDS: Benzocaine 20% Topical Spray UD MUCMEM PRN (12:21)
--- NOTE | 2021-03-28 16:14 | PCM.PRNOTE ---
- Free Text/Narrative Note: Anes Note IV Access I was called to provide IV access for this patient with a history of difficult veins. A #22 TN was placed in the right hand. Excellent return of blood. Flushes with ease. Mathew well. Time with patient [id number] Munir Angelo CRNA
[2021-03-28] MEDS ORDERED: Polyethylene Glycol 3350 Powder 17 GM Packet PO SCH (21:00)
[2021-03-28] MEDS: Ondansetron 4 MG/2 ML SDV IVPUSH PRN (21:12)
[2021-03-29] MEDS ORDERED: LORazepam 1 MG Tab PO PRN (08:53)
[2021-03-29] MEDS ORDERED: Levothyroxine 100 MCG Tab PO SCH (09:00)
[2021-03-29] MEDS ORDERED: FLUoxetine 20 MG Cap PO SCH (09:00)
[2021-03-29] MEDS: Pantoprazole 40 MG in Sodium Chloride 0.9% 10 ML IV SCH (09:16)
[2021-03-29] MEDS: Enoxaparin 40 MG/0.4 ML Syringe SUBCUT SCH (09:17)
[2021-03-29 09:19] LABS: BLOOD UREA NITROGEN,BUN 12 mg/dL (7.0-18.0); CHLORIDE,CL 106 mmol/L (98-107); GLUCOSE RANDOM 115 mg/dL (74-106); POTASSIUM,K 4.5 mmol/L (3.5-5.1); SODIUM,NA 141 mmol/L (136-145)
[2021-03-29] MEDS: Ondansetron 4 MG/2 ML SDV IVPUSH PRN (09:34)
[2021-03-29] MEDS: Ketorolac 15 MG/ML SDV IVPUSH SCH ×2 (10:46)
[2021-03-29 12:11] VITALS: BP 122/82; PULSE 65
--- NOTE | 2021-03-29 12:54 | PCM.DCSUM1 ---
Discharge Summary - Hospital Course Brief History: Pt is a 45 y/o F with previous history of bowel obstructions, CHF, anxiety, depression, Graves' disease and fibromyalgia with history of cholecystectomy, hysterectomy and vertebral fusion surgery. Came in with complaints of 32 days of abdominal pain 10 out of 10 on the pain scale, states that she had bright red bowel movement 1 day prior pain is associated with generalized abdominal pain felt diffusely however most prominent in the left lower quadrant. Associated with nausea and bloating denies any fever chills, denies any shortness of breath, vomiting or diarrhea. Patient has previously been seen in [place] for this as well as recently seen by Dr. Nagy in general surgery within the last week. Last night she was admitted for small bowel obstruction as noted on her abdominal CT. Surgery has been consulted, patient n.p.o., with appropriate medication for pain and anxiety. States she feels mildly improved was seen laying in bed at bedside all questions and concerns were addressed with NG tube in place draining appropriately. Diagnosis: Stroke: No - Discharge Data Discharge Date: 03/29/21 Discharge Disposition: Home, Self-Care 01 Condition: Good - Referral to Home Health Primary Care Physician: Samy Jones Jr, VI - Patient Summary/Data Consults: Consultations 03/26/21 05:55 Consult to Physician [CONS] Routine Hospital Course: Admission diagnoses Bowel obstruction Possible terminal ileitis Discharge diagnoses Bowel obstruction resolved Possible terminal ileitis Other PMH CHF Anxiety Depression Graves' disease Fibromyalgia Patient was admitted secondary to abdominal pain with bright red bowel movements. She reports the pain was generalized and felt diffusely but more prominent in the left lower quadrant. This was associated with nausea and vomiting along with bloating. She had previously been treated in [place] and was recently seen by Dr. Nagy, general surgery for terminal ileitis. On admission NG was placed CT obtained had revealed small bowel obstruction. Dr. Quintanilla, general surgeon at the time was consulted. Small bowel follow-through was completed by Dr. Quintanilla. Dye was noted within the distal colon. She was slowly increased on diet and NG tube was removed. She has had 4 BMs since NG tube removed. Today she had a small emesis after drinking broth but reports the broth is way too salty and made her vomit. After this she tolerated full liquid diet for breakfast as well as soft brat diet for lunch. Patient is very eager to be discharged home and is unwilling to stay further today. Patient was t reated with small IV doses of Solu-Medrol for history of ileitis. Today she is feeling much improved. She will be discharged home with prednisone taper 40 mg x 3 days, 30 mg x 3 days, 20 mg x 3 days and 10 mg x 3 days then to stop. She has follow-up in [place] not for imaging on Saturday and will have follow-up with Dr. Chadd Nagy general surgery in the next week along with PCP. She is to return to the ER or clinic sooner if concerns should arise. - Patient Instructions Diet: GI Soft/Low Residue/Low Fiber Diet, Other: brat diet, low fiber, soft Activity: As Tolerated, No Strenuous Activities Showering/Bathing: May Shower Notify Provider of: Fever, Increased Pain, Swelling and Redness, Drainage, Nausea and/or Vomiting Other/Special Instructions: Follow up as previously scheduled in [place] on 04/03 - Discharge Plan *PRESCRIPTION DRUG MONITORING PROGRAM REVIEWED*: Not Applicable *COPY OF PRESCRIPTION DRUG MONITORING REPORT IN PATIENT AUDRA: Not Applicable Prescriptions/Med Rec: predniSONE [Prednisone] 10 - 40 mg PO DAILY #15 tablet Home Medications: Home Meds Acetaminophen/HYDROcodone [[place] 325-5 MG] 1 tab PO Q6H PRN 10/06/19 [History] LORazepam [Lorazepam] 1 mg PO TID PRN 03/16/21 [History] Levothyroxine 100 mcg PO DAILY 03/16/21 [History] Zolpidem [Ambien] 10 mg PO BEDTIME 03/16/21 [History] Amitriptyline [Elavil] 20 mg PO BEDTIME 03/26/21 [History] Gabapentin [Neurontin] 600 mg PO TID 03/26/21 [History] cloNIDine [Catapres] 2 mg PO BID 03/26/21 [History] Dicyclomine [Bentyl] 20 mg PO Q8H PRN 03/27/21 [History] FLUoxetine [PROzac] 60 mg PO DAILY 03/27/21 [History] LORazepam [Ativan] 1 mg PO TID PRN 03/27/21 [History] Metoprolol Succinate [Toprol XL] 25 mg PO DAILY 03/27/21 [History] Omeprazole 40 mg PO ACBREAKFAST 03/27/21 [History] Ondansetron [Zofran ODT] 4 mg PO Q4H PRN 03/27/21 [History] Torsemide 20 mg PO DAILY 03/27/21 [History] cloNIDine [Catapres] 0.2 mg PO BID 03/27/21 [History] predniSONE [Prednisone] 10 - 40 mg PO DAILY #15 tablet 03/29/21 [Rx] Oxygen Therapy Mode: Room Air Patient Handouts: Bowel Obstruction, [id number], Prednisone tablets Referrals: Chadd Nagy MD [Physician] - 04/10/21 8:00 am Samy Jones Jr, PA-C [Primary Care Provider] - 04/05/21 2:00 pm - Discharge Summary/Plan Comment DC Time >30 min.: No - Patient Data Vitals - Most Recent: Last Vital Signs Temp 98.1 F 03/29/21 12:00 Pulse 65 03/29/21 12:00 Resp 16 03/29/21 12:00 BP 122/82 03/29/21 12:00 Pulse Ox 96 03/29/21 12:00 Weight - Most Recent: 78.562 kg I&O - Last 24 hours: Intake & Output 03/28/21 03/29/21 03/29/21 22:59 06:59 14:59 Intake Total 100 Output Total 550 Balance -450 Lab Results - Last 24 hrs: Laboratory Results - last 24 hr 03/28/21 03/28/21 03/29/21 Range/Units 17:00 21:23 00:39 WBC (4.0-11.0) K/uL RBC (4.30-5.90) M/uL Hgb (12.0-16.0) g/dL Hct (36.0-46.0) % MCV (80.0-98.0) fL MCH (27.0-32.0) pg MCHC (31.0-37.0) g/dL RDW Std Deviation (28.0-62.0) fl RDW Coeff of [place] (11.0-15.0) % Plt Count (150-400) K/uL MPV (7.40-12.00) fL Neut % (Auto) (48.0-80.0) % Lymph % (Auto) (16.0-40.0) % [place] % (Auto) (0.0-15.0) % Eos % (Auto) (0.0-7.0) % Baso % (Auto) (0.0-1.5) % Neut # (Auto) (1.4-5.7) K/uL Lymph # (Auto) (0.6-2.4) K/uL [place] # (Auto) (0.0-0.8) K/uL Eos # (Auto) (0.0-0.7) K/uL Baso # (Auto) (0.0-0.1) K/uL Nucleated RBC % /100WBC Nucleated RBCs # K/uL Sodium (136-145) mmol/L Potassium (3.5-5.1) mmol/L Chloride (98-107) mmol/L Carbon Dioxide (21.0-32.0) mmol/L BUN (7.0-18.0) mg/dL Creatinine (0.6-1.0) mg/dL Est Cr Clr Drug Dosing mL/min Estimated GFR (MDRD) ml/min Glucose (74-106) mg/dL POC Glucose 103 H 112 H 115 H (70-99) mg/dL Calcium (8.5-10.1) mg/dL Phosphorus (2.6-4.7) mg/dL Magnesium (1.8-2.4) mg/dL Total Bilirubin (0.2-1.0) mg/dL AST (15-37) IU/L ALT (14-63) IU/L Alkaline Phosphatase (46-116) U/L Total Protein (6.4-8.2) g/dL Albumin (3.4-5.0) g/dL Globulin (2.6-4.0) g/dL Albumin/Globulin Ratio (0.9-1.6) 03/29/21 03/29/21 03/29/21 Range/Units 04:27 08:35 08:37 WBC 8.03 (4.0-11.0) K/uL RBC 3.80 L (4.30-5.90) M/uL Hgb 11.1 L (12.0-16.0) g/dL Hct 34.0 L (36.0-46.0) % MCV 89.5 (80.0-98.0) fL MCH 29.2 (27.0-32.0) pg MCHC 32.6 (31.0-37.0) g/dL RDW Std Deviation 53.4 (28.0-62.0) fl RDW Coeff of [place] 16 H (11.0-15.0) % Plt Count 446 H (150-400) K/uL MPV 9.50 (7.40-12.00) fL Neut % (Auto) 82.4 H (48.0-80.0) % Lymph % (Auto) 14.2 L (16.0-40.0) % [place] % (Auto) 3.4 (0.0-15.0) % Eos % (Auto) 0.0 (0.0-7.0) % Baso % (Auto) 0.0 (0.0-1.5) % Neut # (Auto) 6.6 H (1.4-5.7) K/uL Lymph # (Auto) 1.1 (0.6-2.4) K/uL [place] # (Auto) 0.3 (0.0-0.8) K/uL Eos # (Auto) 0.0 (0.0-0.7) K/uL Baso # (Auto) 0.0 (0.0-0.1) K/uL Nucleated RBC % 0.0 /100WBC Nucleated RBCs # 0 K/uL Sodium (136-145) mmol/L Potassium (3.5-5.1) mmol/L Chloride (98-107) mmol/L Carbon Dioxide (21.0-32.0) mmol/L BUN (7.0-18.0) mg/dL Creatinine (0.6-1.0) mg/dL Est Cr Clr Drug Dosing mL/min Estimated GFR (MDRD) ml/min Glucose (74-106) mg/dL POC Glucose 115 H 107 H (70-99) mg/dL Calcium (8.5-10.1) mg/dL Phosphorus (2.6-4.7) mg/dL Magnesium (1.8-2.4) mg/dL Total Bilirubin (0.2-1.0) mg/dL AST (15-37) IU/L ALT (14-63) IU/L Alkaline Phosphatase (46-116) U/L Total Protein (6.4-8.2) g/dL Albumin (3.4-5.0) g/dL Globulin (2.6-4.0) g/dL Albumin/Globulin Ratio (0.9-1.6) / Range/Units 08:37 WBC (4.0-11.0) K/uL RBC (4.30-5.90) M/uL Hgb (12.0-16.0) g/dL Hct (36.0-46.0) % MCV (80.0-98.0) fL MCH (27.0-32.0) pg MCHC (31.0-37.0) g/dL RDW Std Deviation (28.0-62.0) fl RDW Coeff of [place]anna (11.0-15.0) % Plt Count (150-400) K/uL MPV (7.40-12.00) fL Neut % (Auto) (48.0-80.0) % Lymph % (Auto) (16.0-40.0) % Republic % (Auto) (0.0-15.0) % Eos % (Auto) (0.0-7.0) % Baso % (Auto) (0.0-1.5) % Neut # (Auto) (1.4-5.7) K/uL Lymph # (Auto) (0.6-2.4) K/uL [place] # (Auto) (0.0-0.8) K/uL Eos # (Auto) (0.0-0.7) K/uL Baso # (Auto) (0.0-0.1) K/uL Nucleated RBC % /100WBC Nucleated RBCs # K/uL Sodium 141 (136-145) mmol/L Potassium 4.5 (3.5-5.1) mmol/L Chloride 106 (98-107) mmol/L Carbon Dioxide 26.0 (21.0-32.0) mmol/L BUN 12 (7.0-18.0) mg/dL Creatinine 0.9 (0.6-1.0) mg/dL Est Cr Clr Drug Dosing 75.95 mL/min Estimated GFR (MDRD) > 60.0 ml/min Glucose 115 H (74-106) mg/dL POC Glucose (70-99) mg/dL Calcium 7.8 L (8.5-10.1) mg/dL Phosphorus 4.3 (2.6-4.7) mg/dL Magnesium 2.3 (1.8-2.4) mg/dL Total Bilirubin 0.3 (0.2-1.0) mg/dL AST 12 L (15-37) IU/L ALT 14 (14-63) IU/L Alkaline Phosphatase 100 (46-116) U/L Total Protein 6.0 L (6.4-8.2) g/dL Albumin 2.3 L (3.4-5.0) g/dL Globulin 3.7 (2.6-4.0) g/dL Albumin/Globulin Ratio 0.6 L (0.9-1.6) Med Orders - Current: Current Medications Benzocaine (Benzocaine 20% Topical [place] Ud) 1 each MUCMEM Q6H PRN PRN Reason: Sore Throat Last Admin: 03/28/21 12:21 Dose: 1 each Documented by: Dextrose/Water (50% Dextrose In Water 50 Ml Syringe) 50 ml IVPUSH ASDIRECTED PRN PRN Reason: Hypoglycemia Last Admin: 03/27/21 08:39 Dose: 50 ml Documented by: Enoxaparin Sodium (Enoxaparin 40 Mg/0.4 Ml Syringe) 40 mg SUBCUT Q24H [facility] Last Admin: 03/29/21 09:17 Dose: 40 mg Documented by: Fluoxetine HCl (Fluoxetine 20 Mg Cap) 60 mg PO DAILY [facility] Last Admin: 03/29/21 09:33 Dose: 60 mg Documented by: Gabapentin (Gabapentin 300 Mg Cap) 600 mg PO TID [facility] Hydromorphone HCl (Hydromorphone 1 Mg/Ml Syringe) 1 mg IVPUSH Q4H PRN PRN Reason: Abdominal Pain Last Admin: 03/28/21 21:12 Dose: 1 mg Documented by: Sodium Chloride (Normal Saline) 500 mls @ 999 mls/hr IV STAT [facility] Last Admin: 03/25/21 21:40 Dose: 999 mls/hr Documented by: Pantoprazole Sodium 40 mg/ (Sodium Chloride) 10 mls @ 300 mls/hr IV DAILY [facility] Last Admin: 03/29/21 09:16 Dose: 300 mls/hr Documented by: Acetaminophen 1,000 mg/ Premix 100 mls @ 400 mls/hr IV ONETIME PRN PRN Reason: Pain Last Admin: 03/28/21 12:22 Dose: 400 mls/hr Documented by: Ketorolac Tromethamine (Ketorolac 15 Mg/Ml Sdv) 15 mg IVPUSH Q6H [facility] Stop: 04/02/21 04:29 Last Admin: 03/29/21 10:46 Dose: 15 mg Documented by: Levothyroxine Sodium (Levothyroxine 100 Mcg Tab) 100 mcg PO ACBREAKFAST [facility] Last Admin: 03/29/21 09:16 Dose: 100 mcg Documented by: Lorazepam (Lorazepam 1 Mg Tab) 1 mg PO TID PRN PRN Reason: Anxiety Methylprednisolone Sodium Succinate (Methylprednisolone Sodium Succinate 40 Mg/1 Ml Sdv) 40 mg IV TID [facility] Last Admin: 03/28/21 21:14 Dose: 40 mg Documented by: Ondansetron HCl (Ondansetron 4 Mg/2 Ml Sdv) 4 mg IVPUSH Q4H PRN PRN Reason: Nausea/Vomiting Last Admin: 03/29/21 09:34 Dose: 4 mg Documented by: Phenol/Menthol (Phenol 1.4% Oral [place] 177 Ml Bottle) 1 ml MUCMEM Q2H PRN PRN Reason: Sore Throat Last Admin: 03/28/21 01:49 Dose: 1 spray Documented by: Polyethylene Glycol (Polyethylene Glycol 3350 Powder 17 Gm Packet) 17 gm PO BEDTIME [facility] Last Admin: 03/28/21 21:14 Dose: 17 gm Documented by: Discontinued Medications Benzocaine (Benzocaine 20% Topical [place] Ud) 1 each MUCMEM ONETIME ONE Stop: 03/26/21 02:27 Last Admin: 03/26/21 02:37 Dose: 1 each Documented by: Benzocaine (Benzocaine 20% Topical [place] Ud) 1 each MUCMEM Q2HR PRN PRN Reason: Sore Throat Hydromorphone HCl (Hydromorphone 1 Mg/Ml Syringe) 1 mg IVPUSH ONETIME ONE Stop: 03/25/21 23:08 Last Admin: 03/25/21 23:14 Dose: 1 mg Documented by: Hydromorphone HCl (Hydromorphone 1 Mg/Ml Syringe) 1 mg IVPUSH ONETIME ONE Stop: 03/26/21 04:30 Last Admin: 03/26/21 04:40 Dose: 1 mg Documented by: Hydromorphone HCl (Hydromorphone 1 Mg/Ml Syringe) Confirm Administered Dose 1 mg .ROUTE .STK-MED ONE Stop: 03/26/21 08:45 Last Admin: 03/26/21 08:49 Dose: 1 mg Documented by: Hydromorphone HCl (Hydromorphone 1 Mg/Ml Syringe) 1 mg IVPUSH Q1H PRN PRN Reason: Pain Last Admin: 03/26/21 19:01 Dose: 1 mg Documented by: Hydromorphone HCl (Hydromorphone 1 Mg/Ml Syringe) 1 mg IVPUSH Q2H PRN PRN Reason: Abdominal Pain Last Admin: 03/28/21 03:40 Dose: 1 mg Documented by: Sodium Chloride (Normal Saline) 1,000 mls [facility] Admin: 03/26/21 04:57 Dose: 150 mls/hr Documented by: Lactated Ringer's (Ringers, Lactated) 1,000 mls @ 125 [facility]ls[facility] Last Admin: 03/26/21 06:14 Dose: 125 mls/hr Documented by: Dextrose/Lactated Ringer's (Dextrose 5%-Lactated Ringers) 1,000 mls @ 125 [facility] Last Admin: 03/27/21 06:38 Dose: 125 mls/hr Documented by: Lactated Ringer's (Ringers, Lactated) 500 mls @ 999 mls/hr IV [facility] Stop: 03/26/21 18:02 Last Admin: 03/26/21 17:42 Dose: 999 mls/hr Documented by: Magnesium Sulfate 2 gm/ Premix 50 mls @ 25 mls/hr IV ONETIME ONE Stop: 03/27/21 11:45 Last Admin: 03/27/21 13:00 Dose: Not Given Documented by: Magnesium Sulfate 2 gm/ (Dextrose/Water) 1,004 mls @ 125 mls/hr IV ONETIME ONE Stop: 03/27/21 19:10 Last Admin: 03/27/21 12:22 Dose: 125 mls/hr Documented by: Lactated Ringer's (Ringers, Lactated) 1,000 mls @ 125 mls/hr IV ASDIRECTED [facility]ISELA Last Admin: 03/28/21 07:40 Dose: 125 mls/hr Documented by: Acetaminophen 1,000 mg/ Premix 100 mls @ 400 mls/hr IV NOW ONE Stop: 03/28/21 05:01 Last Admin: 03/28/21 04:57 Dose: 400 mls/hr Documented by: Iopamidol (Iopamidol 755 Mg/Ml 500 Ml Multipack Bottle) 100 ml IVPUSH ONETIME STA Stop: 03/25/21 22:14 Last Admin: 03/25/21 23:46 Dose: 100 ml Documented by: Ketorolac Tromethamine (Ketorolac 30 Mg/Ml Sdv) 30 mg IVPUSH ONETIME ONE Stop: 03/25/21 20:47 Last Admin: 03/25/21 21:36 Dose: 30 mg Documented by: Ketorolac Tromethamine (Ketorolac 15 Mg/Ml Sdv) 15 mg IVPUSH ONETIME ONE Stop: 03/27/21 10:31 Last Admin: 03/27/21 10:41 Dose: 15 mg Documented by: Ketorolac Tromethamine (Ketorolac 15 Mg/Ml Sdv) 15 mg IVPUSH Q6H PRN PRN Reason: Pain Stop: 04/02/21 04:29 Last Admin: 03/28/21 04:38 Dose: 15 mg Documented by: Lorazepam (Lorazepam 2 Mg/Ml Sdv) 2 mg IVPUSH ONETIME ONE Stop: 03/26/21 08:50 Last Admin: 03/26/21 08:59 Dose: 2 mg Documented by: Lorazepam (Lorazepam 2 Mg/Ml Sdv) 1 mg IVPUSH Q4H PRN PRN Reason: Anxiety Last Admin: 03/28/21 16:13 Dose: 1 mg Documented by: Lorazepam (Lorazepam 2 Mg/Ml Sdv) 1 mg IVPUSH ONETIME ONE Stop: 03/28/21 04:48 Last Admin: 03/28/21 04:57 Dose: 1 mg Documented by: Midazolam HCl (Midazolam 1 Mg/Ml 2 Ml Sdv) 1 mg IVPUSH ONETIME ONE Stop: 03/26/21 02:11 Last Admin: 03/26/21 02:38 Dose: 1 mg Documented by: Morphine Sulfate (Morphine 2 Mg/Ml Syringe) 1 mg IVPUSH Q4H PRN PRN Reason: Pain Last Admin: 03/26/21 06:10 Dose: 1 mg Documented by: Ondansetron HCl (Ondansetron 4 Mg/2 Ml Sdv) 4 mg IVPUSH ONETIME ONE Stop: 03/25/21 20:47 Last Admin: 03/25/21 21:36 Dose: 4 mg Documented by:
[2021-03-29] MEDS: methylPREDNISolone Sodium Succinate 40 MG/1 ML SDV IV SCH (13:12)
[2021-03-29] MEDS ORDERED: Gabapentin 300 MG Cap PO SCH (14:00)
--- NOTE | 2021-03-29 16:47 | PCM.SN.2 ---
- Free Text/Narrative Note: I visited with the patient this morning. Her vital signs are stable overnight however she did have one episode of emesis. She was given Zofran with good relief in her nausea. This morning when I visited with her she stated that the broth is what made her sick. According to the nurse the emesis was green. She stated she was hungry this morning and wanted to try eating something other than clear liquids. I agreed that we would try full liquids and if that when okay she can advance her diet over I warned her that she may still be inflamed and that she would have to go easy with a regular diet. I will sign off at this time as there is no surgical indications. For follow-up she can follow-up with Dr. Nagy she had seen previously last week. I would continue her steroids and taper them off slowly over time. Call with any questions or concerns.
== END 2021-03-29 13:50 | disposition home or self-care (01) | DRG 387 ==
LOC: MW.ED 20:26 → MW.ICU 03-26 01:50 → MW.MS 03-28 15:10
PROVIDERS: ADMIT Student in an Organized Health Care Education/Training Program; ATTEND Student in an Organized Health Care Education/Training Program
PROC: 0D9670Z Drainage of Stomach with Drainage Device, Via Natural or Artificial Opening (ICD-10-PCS; principal; 2021-03-26)
DX: K56.609 Unspecified intestinal obstruction, unspecified as to partial versus complete obstruction (principal); K50.012 Crohn's disease of small intestine with intestinal obstruction; I50.9 Heart failure, unspecified; F41.9 Anxiety disorder, unspecified; H54.7 Unspecified visual loss; I10 Essential (primary) hypertension; F32.9 Major depressive disorder, single episode, unspecified; E05.00 Thyrotoxicosis with diffuse goiter without thyrotoxic crisis or storm; M79.7 Fibromyalgia; K21.9 Gastro-esophageal reflux disease without esophagitis; M19.90 Unspecified osteoarthritis, unspecified site; G89.29 Other chronic pain; M54.9 Dorsalgia, unspecified; M54.2 Cervicalgia; F43.10 Post-traumatic stress disorder, unspecified; E16.2 Hypoglycemia, unspecified; D64.9 Anemia, unspecified; N20.0 Calculus of kidney; Z20.822 Contact with and (suspected) exposure to COVID-19; E03.9 Hypothyroidism, unspecified; E05.90 Thyrotoxicosis, unspecified without thyrotoxic crisis or storm; M32.9 Systemic lupus erythematosus, unspecified; G43.909 Migraine, unspecified, not intractable, without status migrainosus; Z90.89 Acquired absence of other organs; Z98.890 Other specified postprocedural states; Z90.49 Acquired absence of other specified parts of digestive tract; Z87.440 Personal history of urinary (tract) infections; Z90.710 Acquired absence of both cervix and uterus; Z98.1 Arthrodesis status; Z79.52 Long term (current) use of systemic steroids; Z79.890 Hormone replacement therapy; Z79.899 Other long term (current) drug therapy; Z86.718 Personal history of other venous thrombosis and embolism; Z87.891 Personal history of nicotine dependence; I11.0 Hypertensive heart disease with heart failure; Z88.8 Allergy status to other drugs, medicaments and biological substances
CPT/HCPCS: 36415; 74018; 74177; 80053; 83690; 83735; 84100; 85025; J1170; J1885; J2405; J7040; Q9967; 36410; 82947; 96374; 96375; 99291; A9270-GY; C9113; J0131; J1650; J2060; J2250; J2270; J2920; J3475; J7030; J7060; J7120; J7121; U0002

== ENCOUNTER 2023-05-06 11:05 | Day surgery (SDC) | payer MEDICARE, MEDICAID ==
[~2023-05-06 11:05] MED LIST changes: -Bupivacaine 25%/EPINEPHrine/PF 30 ML ONE; +Lactated Ringers 1,000 ML IV SCH
[2023-05-06] MEDS ORDERED: Dexmedetomidine 200 MCG/2 ML SDV IV ONE (11:06)
[2023-05-06] MEDS ORDERED: Lidocaine 2% 5 ML SDV ONE (12:21)
[2023-05-06] MEDS ORDERED: Propofol 200 MG/20 ML SDV ONE (12:21)
[2023-05-06] MEDS ORDERED: Metoclopramide 10 MG/2 ML SDV ONE (12:29)
[2023-05-06] MEDS ORDERED: Lactated Ringers 1,000 ML IV SCH (13:00)
[2023-05-06 13:07] VITALS: BP 121/58; PULSE 67
== END 2023-05-06 13:20 | disposition home or self-care (01) ==
LOC: MW.SDS 11:05
PROVIDERS: ATTEND Surgery
DX: K29.50 Unspecified chronic gastritis without bleeding (principal); K31.84 Gastroparesis; R13.10 Dysphagia, unspecified; K31.89 Other diseases of stomach and duodenum; F41.9 Anxiety disorder, unspecified; I11.0 Hypertensive heart disease with heart failure; I50.9 Heart failure, unspecified; G89.4 Chronic pain syndrome; J44.9 Chronic obstructive pulmonary disease, unspecified; F32.A Depression, unspecified; M79.7 Fibromyalgia; M06.9 Rheumatoid arthritis, unspecified; E11.9 Type 2 diabetes mellitus without complications; K21.9 Gastro-esophageal reflux disease without esophagitis; E05.00 Thyrotoxicosis with diffuse goiter without thyrotoxic crisis or storm; E03.9 Hypothyroidism, unspecified; K58.9 Irritable bowel syndrome, unspecified; G43.909 Migraine, unspecified, not intractable, without status migrainosus; F17.210 Nicotine dependence, cigarettes, uncomplicated; Z88.5 Allergy status to narcotic agent; Z79.85 Long-term (current) use of injectable non-insulin antidiabetic drugs; Z80.0 Family history of malignant neoplasm of digestive organs; Z79.890 Hormone replacement therapy
CPT/HCPCS: 43239; 82947; J2704; J7120; 00731; J2765; J3490